=== PATIENT | male | born 1945 | race Caucasian/White ===

== ENCOUNTER 2018-07-15 13:29 | Inpatient (IN) ==
--- NOTE | 2018-07-15 13:46 | Emergency Department Note ---
Disposition Clinical Impression: Delirium due to general medical condition Dementia Qualifiers: Dementia type: unspecified type Dementia behavioral disturbance: with be havioral disturbance Qualified Code(s): F03.91 - Unspecified dementia with behavioral disturbance Altered mental status Qualifiers: Altered mental status type: delirium Qualified Code(s): R41.0 - Disorientation, unspecified Pneumonia Qualifiers: Pneumonia type: due to unspecified organism Laterality: left Lung location: unspecified part of lung Qualified Code(s): J18.9 - Pneumonia, unspecified organism Disposition: Admitted As Inpatient Condition: Fair Time of Disposition: 17:29 Altered Mental Status HPI - General Chief Complaint: ED Altered Mental Status Stated Complaint: AMS Time Seen by Provider: 07/15/18 13:39 Source: patient Mode of arrival: ambulatory Limitations: altered mental status, physical limitation Vital Signs Reviewed: Yes - History of Present Illness HPI Narrative: 73-year-old male past medical history of dementia with to 3 day history of worsening mental status. Patient's is at bedside stating that patient has become more agitated and resistant to home health care. Patient is not communicating appropriately or making sense with his words. Patient has been putting his hand to his head in a way that is interpreted by the as headache. Patient is also had a worsening cough during this time. Patient's states that he has been urinating a great deal although notes that there has been no blood in the urine or stool. reports that patient takes no significant medications at this time he is not on blood thinners, there is been no recent trauma. Patient is unable to participate in significant history of present illness or review of systems questioning at this time. MD complaint: altered mental status Onset (ago): day(s) Associated symptoms: Reports: cough, other (Increase in urination) - Related Data Home Medications Medication Instructions Recorded Confirmed Aspirin [Lo-Dose Aspirin EC] 81 mg PO DAILY 07/15/18 07/15/18 Atenolol [Tenormin] 25 mg PO DAILY 07/15/18 07/15/18 Citalopram [CeleXA] 20 mg PO DAILY 07/15/18 07/15/18 Multivitamin,Therapeutic 1 each PO DAILY 07/15/18 07/15/18 [Thera-Tabs] Naproxen [Naprosyn] 500 mg PO DAILY 07/15/18 07/15/18 Omeprazole [PriLOSEC] 20 mg PO DAILY 07/15/18 07/15/18 Oxybutynin Chloride [Ditropan Xl] 10 mg PO DAILY 07/15/18 07/15/18 risperiDONE [Risperidone] 1 mg PO HS 07/15/18 07/15/18 Allergies Allergy/AdvReac Type Severity Reaction Status Date / Time Penicillins Allergy Difficulty Verified 07/15/18 19:49 Breathing Review of Systems: As Per HPI Limitations: ROS unobtainable due to patients medical condition Past Medical History - Past Medical History Attestation: Yes The following information was validated with the patient. Source: patient, obtained from family Medical history: Reports: dementia, GERD, hypertension Psychiatric history: Reports: depression - Social History Smoking Status: Former smoker Smokeless Tobacco Status: No Alcohol use: Reports: none Drug use: Reports: none Physical Exam Constitutional: No acute distress, patient speech is tangential to conversation, context is inappropriate. Unable to communicate significantly for review systems or history of present illness. Neuro: no overt focal neurological deficits Head: Atraumatic, normocephalic Eyes: Pupils equal, round and reactive to light, no scleral icterus, no conjunctival injection Neck: Trachea midline without deviation. Anterior neck is supple without swelling. *Chest: Symmetric chest wall rise *Heart: Cardiac rhythm and rate are regular with S1 and S2 , no S3 or S4 appreciated, no murmurs, gallops, rubs, or clicks. *Lungs: Lungs are clear to auscultation bilaterally, without accessory muscle use or prolonged expiratory phase. No wheezes, rhonchi or stridor appreciated. Abdomen: Abdomen is flat, soft to palpation, normal bowel sounds. No abdominal bruit auscultated. Non-distended, non-rigid, no organomegaly, no ascites appreciated. No pulsatile mass, no tenderness or guarding to palpation in all four quadrants, no rebound Extremities: Normal capillary refill without evidence of pedal edema, joint swelling or erythema. Pulses/motor/sensory intact in all 4 extremities. Integumentary: warm, dry, intact, normal color. No rash, cyanosis, diaphoresis, erythema, or pallor - General Limitations: altered mental status General appearance: alert, in no apparent distress Course Course Narrative: Main concern is for pneumonia versus urinary tract infection causing delirium in the setting of dementia CBC, BMP, hepatic panel, lipase, ammonia EKG/old EKG, chest x-ray, CT scan of the head We will reassess frequently. Vital Signs Temperature 98.3 F 07/15/18 13:35 Pulse Rate 87 07/15/18 13:35 Respiratory Rate 18 07/15/18 13:35 Blood Pressure 120/86 07/15/18 13:35 O2 Sat by Pulse Oximetry 97 07/15/18 13:35 Temperature 97.6 F 07/15/18 16:16 Pulse Rate 83 07/15/18 16:16 Respiratory Rate 12 07/15/18 16:16 Blood Pressure 129/94 07/15/18 16:16 O2 Sat by Pulse Oximetry 100 07/15/18 16:16 Oxygen Delivery Oxygen Delivery Room Air Altered Mental Status - MDM Narrative Medical decision making narrative: Patient imaging results consistent with concern for pneumonia Patient will be given IV Levaquin for management of his symptoms here in ED. Laboratory and EKG results unremarkable for acute pathology Patient admitted to hospital medicine service for further evaluation and management of altered mental status in the setting of pneumonia. The patient's verbalizes understanding and agreement with this plan. - Lab Data Lab results reviewed: Yes I reviewed the patient's lab results. Result diagrams: 07/16/18 01:11 07/16/18 01:11 Lab Results 07/15/18 07/15/18 07/15/18 Range/Units 14:35 14:35 14:35 WBC 6.8 (4.3-11.1) K/mcL RBC 4.21 (4.19-5.50) M/mcL Hgb 14.1 (12.9-16.9) g/dL Hct 42.0 (37.5-50.1) % MCV 99.8 (83.0-100.0) fL MCH 33.5 H (28.0-33.3) pg MCHC 33.6 (31.6-35.5) g/dL RDW 11.9 (11.5-14.5) % Plt Count 177 (140-400) K/mcL MPV 10.7 (9.4-12.4) fL Immature Gran % 0.1 (0-4) % Seg Neutrophils % 73.9 % Lymphocytes % 14.7 % Monocytes % 8.7 % Eosinophils % 2.2 % Basophils % 0.4 % Neutrophils # 5.0 (1.6-8.9) K/mcL Lymphocytes # 1.0 (0.6-4.6) K/mcL Monocytes # 0.6 (0.0-1.3) K/mcL Eosinophils # 0.2 (0.0-0.6) K/mcL Basophils # 0.0 (0.0-0.2) K/mcL Sodium 142 (136-145) mEq/L Potassium 4.2 (3.5-5.1) mEq/L Chloride 109 H (98-107) mEq/L Carbon Dioxide 24 (23-29) mEq/L BUN 30 H (8-23) mg/dL Creatinine 1.29 (0.70-1.30) mg/dL Est GFR ( Amer) > 60 (> 60) Est GFR (Non-Af Amer) 54 L (> 60) BUN/Creatinine Ratio 23 (6-26) Glucose 93 (70-105) mg/dL Calculated Osmolality 300 (280-300) Lactic Acid (0.5-2.2) mmol/L Calcium 9.6 (8.6-10.3) mg/dL Total Bilirubin 0.7 (0.3-1.0) mg/dL Direct Bilirubin 0.1 (0.0-0.2) mg/dL Indirect Bilirubin 0.6 (0.0-1.2) mg/dL AST 23 (13-39) Units/L ALT 19 (7-52) Units/L Alkaline Phosphatase 72 (34-104) Units/L Ammonia 32 (16-53) mcmol/L Serum Total Protein 6.4 (6.4-8.9) g/dL Albumin 4.2 (3.5-5.7) g/dL Globulin 2.2 L (2.4-3.5) g/dL Albumin/Globulin Ratio 1.9 (1.1-2.2) Lipase 34 (11-82) Units/L Urine Color (Yellow) Urine Clarity (Clear) Urine pH (5.0-8.0) pH Units Ur Specific [place] (1.010-1.025) Urine Protein (Neg-Trace) mg/dL Urine Glucose (UA) (Normal) mg/dL Urine Ketones (Negative) mg/dL Urine Blood (Negative) Urine Nitrite (Negative) Urine Bilirubin (Negative) Urine Urobilinogen (Normal) mg/dL Ur Leukocyte Esterase (Negative) Ur Culture Indicated? (NO) 07/15/18 07/15/18 Range/Units 14:35 16:10 WBC (4.3-11.1) K/mcL RBC (4.19-5.50) M/mcL Hgb (12.9-16.9) g/dL Hct (37.5-50.1) % MCV (83.0-100.0) fL MCH (28.0-33.3) pg MCHC (31.6-35.5) g/dL RDW (11.5-14.5) % Plt Count (140-400) K/mcL MPV (9.4-12.4) fL Immature Gran % (0-4) % Seg Neutrophils % % Lymphocytes % % Monocytes % % Eosinophils % % Basophils % % Neutrophils # (1.6-8.9) K/mcL Lymphocytes # (0.6-4.6) K/mcL Monocytes # (0.0-1.3) K/mcL Eosinophils # (0.0-0.6) K/mcL Basophils # (0.0-0.2) K/mcL Sodium (136-145) mEq/L Potassium (3.5-5.1) mEq/L Chloride (98-107) mEq/L Carbon Dioxide (23-29) mEq/L BUN (8-23) mg/dL Creatinine (0.70-1.30) mg/dL Est GFR ( Amer) (> 60) Est GFR (Non-Af Amer) (> 60) BUN/Creatinine Ratio (6-26) Glucose (70-105) mg/dL Calculated Osmolality (280-300) Lactic Acid 0.8 (0.5-2.2) mmol/L Calcium (8.6-10.3) mg/dL Total Bilirubin (0.3-1.0) mg/dL Direct Bilirubin (0.0-0.2) mg/dL Indirect Bilirubin (0.0-1.2) mg/dL AST (13-39) Units/L ALT (7-52) Units/L Alkaline Phosphatase (34-104) Units/L Ammonia (16-53) mcmol/L Serum Total Protein (6.4-8.9) g/dL Albumin (3.5-5.7) g/dL Globulin (2.4-3.5) g/dL Albumin/Globulin Ratio (1.1-2.2) Lipase (11-82) Units/L Urine Color Yellow (Yellow) Urine Clarity Clear (Clear) Urine pH 5.5 (5.0-8.0) pH Units Ur Specific [place] 1.022 (1.010-1.025) Urine Protein Negative (Neg-Trace) mg/dL Urine Glucose (UA) Normal (Normal) mg/dL Urine Ketones Trace H (Negative) mg/dL Urine Blood Negative (Negative) Urine Nitrite Negative (Negative) Urine Bilirubin Negative (Negative) Urine Urobilinogen Normal (Normal) mg/dL Ur Leukocyte Esterase Negative (Negative) Ur Culture Indicated? NO (NO) - Radiology Data Radiology results reviewed: Yes I reviewed the patient's radiology results. Chest X-Ray 07/15/18 13:44 IMPRESSION: 1. Left basilar opacities likely reflecting atelectasis and effusion. Superimposed infiltrate would be difficult to exclude in the appropriate clinical setting. D/ / Christoph Maxwlel MD / Christoph Maxwell MD Interpreting Provider: Christoph Maxwell MD Head CT 07/15/18 13:44 IMPRESSION: No acute intracranial abnormality. Moderate generalized atrophy. Moderate low-attenuation in the periventricular white matter, consistent with small vessel disease. There is disproportionate involvement of the left parietal periventricular white matter, similar to baseline study. D/ / Enio Oneill MD / Enio Oneill MD Interpreting Provider: Enio Oneill MD - EKG Data EKG attestation: Yes I reviewed and interpreted this EKG. EKG results narrative: Patient's EKG shows sinus rhythm with borderline left axis deviation at a rate of 80 bpm, AR interval of 164 ms, QRS duration 90 ms, QT/QTc intervals 388/448 ms respectively. There are no significant ST segment elevations, depressions, pathologic Q waves there is an abnormal T-wave inversion noted in lead 3 but is isolated to this lesion consistent with prior EKG. This EKG performed today is generally consistent with prior EKG performed on 04/30/2016. TPA Checklist - LKW: 3-4.5 hrs Add. Warnings/Precautions Patient/family understanding: The patient/family members have been counseled and understood the risk, benefit, and alternatives of treatment.
--- NOTE | 2018-07-15 14:40 | Emergency Department Note ---
Disposition Clinical Impression: Delirium due to general medical condition Dementia Qualifiers: Dementia type: unspecified type Dementia behavioral disturbance: with be havioral disturbance Qualified Code(s): F03.91 - Unspecified dementia with behavioral disturbance Altered mental status Qualifiers: Altered mental status type: delirium Qualified Code(s): R41.0 - Disorientation, unspecified Pneumonia Qualifiers: Pneumonia type: due to unspecified organism Laterality: left Lung location: unspecified part of lung Qualified Code(s): J18.9 - Pneumonia, unspecified organism Disposition: Admitted As Inpatient Condition: Fair Referrals: Darin Alicea Jr, MD [Primary Care Provider] - Forms: ED Satisfaction Letter Time of Disposition: 16:40 General Adult HPI - General Chief complaint: ED Altered Mental Status Stated complaint: AMS Time Seen by Provider: 07/15/18 13:39 Source: patient Mode of arrival: ambulatory Limitations: altered mental status, physical limitation Nursing Notes Reviewed: Yes Vital Signs Reviewed: Yes - History of Present Illness Pain Scale: 0 - Related Data Home Medications Medication Instructions Recorded Confirmed Citalopram [CeleXA] 20 mg PO DAILY 07/15/18 07/15/18 Mirabegron [Myrbetriq] 50 mg PO DAILY 07/15/18 07/15/18 Oxybutynin Chloride [Ditropan Xl] 10 mg PO DAILY 07/15/18 07/15/18 risperiDONE [Risperidone] 1 mg PO HS 07/15/18 07/15/18 Allergies Allergy/AdvReac Type Severity Reaction Status Date / Time Penicillins Allergy Difficulty Verified 04/20/16 15:20 Breathing Past Medical History - Past Medical History Medical history: Reports: dementia, GERD, hypertension Psychiatric history: Reports: depression - Social History Smoking Status: Former smoker Smokeless Tobacco Status: No Alcohol use: Reports: none Drug use: Reports: none Physical Exam - General Limitations: altered mental status, physical limitation General appearance: alert, in no apparent distress Course Vital Signs Temperature 98.3 F 07/15/18 13:35 Pulse Rate 87 07/15/18 13:35 Respiratory Rate 18 07/15/18 13:35 Blood Pressure 120/86 07/15/18 13:35 O2 Sat by Pulse Oximetry 97 07/15/18 13:35 Temperature 97.6 F 07/15/18 16:16 Pulse Rate 83 07/15/18 16:16 Respiratory Rate 12 07/15/18 16:16 Blood Pressure 129/94 07/15/18 16:16 O2 Sat by Pulse Oximetry 100 07/15/18 16:16 Oxygen Delivery Oxygen Delivery Room Air Medical Decision Making - Lab Data Result diagrams: 07/15/18 14:35 07/15/18 14:35 Lab Results 07/15/18 07/15/18 07/15/18 Range/Units 14:35 14:35 14:35 WBC 6.8 (4.3-11.1) K/mcL RBC 4.21 (4.19-5.50) M/mcL Hgb 14.1 (12.9-16.9) g/dL Hct 42.0 (37.5-50.1) % MCV 99.8 (83.0-100.0) fL MCH 33.5 H (28.0-33.3) pg MCHC 33.6 (31.6-35.5) g/dL RDW 11.9 (11.5-14.5) % Plt Count 177 (140-400) K/mcL MPV 10.7 (9.4-12.4) fL Immature Gran % 0.1 (0-4) % Seg Neutrophils % 73.9 % Lymphocytes % 14.7 % Monocytes % 8.7 % Eosinophils % 2.2 % Basophils % 0.4 % Neutrophils # 5.0 (1.6-8.9) K/mcL Lymphocytes # 1.0 (0.6-4.6) K/mcL Monocytes # 0.6 (0.0-1.3) K/mcL Eosinophils # 0.2 (0.0-0.6) K/mcL Basophils # 0.0 (0.0-0.2) K/mcL Sodium 142 (136-145) mEq/L Potassium 4.2 (3.5-5.1) mEq/L Chloride 109 H (98-107) mEq/L Carbon Dioxide 24 (23-29) mEq/L BUN 30 H (8-23) mg/dL Creatinine 1.29 (0.70-1.30) mg/dL Est GFR ( Amer) > 60 (> 60) Est GFR (Non-Af Amer) 54 L (> 60) BUN/Creatinine Ratio 23 (6-26) Glucose 93 (70-105) mg/dL Calculated Osmolality 300 (280-300) Lactic Acid (0.5-2.2) mmol/L Calcium 9.6 (8.6-10.3) mg/dL Total Bilirubin 0.7 (0.3-1.0) mg/dL Direct Bilirubin 0.1 (0.0-0.2) mg/dL Indirect Bilirubin 0.6 (0.0-1.2) mg/dL AST 23 (13-39) Units/L ALT 19 (7-52) Units/L Alkaline Phosphatase 72 (34-104) Units/L Ammonia 32 (16-53) mcmol/L Serum Total Protein 6.4 (6.4-8.9) g/dL Albumin 4.2 (3.5-5.7) g/dL Globulin 2.2 L (2.4-3.5) g/dL Albumin/Globulin Ratio 1.9 (1.1-2.2) Lipase 34 (11-82) Units/L Urine Color (Yellow) Urine Clarity (Clear) Urine pH (5.0-8.0) pH Units Ur Specific [place] (1.010-1.025) Urine Protein (Neg-Trace) mg/dL Urine Glucose (UA) (Normal) mg/dL Urine Ketones (Negative) mg/dL Urine Blood (Negative) Urine Nitrite (Negative) Urine Bilirubin (Negative) Urine Urobilinogen (Normal) mg/dL Ur Leukocyte Esterase (Negative) Ur Culture Indicated? (NO) 07/15/18 07/15/18 Range/Units 14:35 16:10 WBC (4.3-11.1) K/mcL RBC (4.19-5.50) M/mcL Hgb (12.9-16.9) g/dL Hct (37.5-50.1) % MCV (83.0-100.0) fL MCH (28.0-33.3) pg MCHC (31.6-35.5) g/dL RDW (11.5-14.5) % Plt Count (140-400) K/mcL MPV (9.4-12.4) fL Immature Gran % (0-4) % Seg Neutrophils % % Lymphocytes % % Monocytes % % Eosinophils % % Basophils % % Neutrophils # (1.6-8.9) K/mcL Lymphocytes # (0.6-4.6) K/mcL Monocytes # (0.0-1.3) K/mcL Eosinophils # (0.0-0.6) K/mcL Basophils # (0.0-0.2) K/mcL Sodium (136-145) mEq/L Potassium (3.5-5.1) mEq/L Chloride (98-107) mEq/L Carbon Dioxide (23-29) mEq/L BUN (8-23) mg/dL Creatinine (0.70-1.30) mg/dL Est GFR ( Amer) (> 60) Est GFR (Non-Af Amer) (> 60) BUN/Creatinine Ratio (6-26) Glucose (70-105) mg/dL Calculated Osmolality (280-300) Lactic Acid 0.8 (0.5-2.2) mmol/L Calcium (8.6-10.3) mg/dL Total Bilirubin (0.3-1.0) mg/dL Direct Bilirubin (0.0-0.2) mg/dL Indirect Bilirubin (0.0-1.2) mg/dL AST (13-39) Units/L ALT (7-52) Units/L Alkaline Phosphatase (34-104) Units/L Ammonia (16-53) mcmol/L Serum Total Protein (6.4-8.9) g/dL Albumin (3.5-5.7) g/dL Globulin (2.4-3.5) g/dL Albumin/Globulin Ratio (1.1-2.2) Lipase (11-82) Units/L Urine Color Yellow (Yellow) Urine Clarity Clear (Clear) Urine pH 5.5 (5.0-8.0) pH Units Ur Specific [place] 1.022 (1.010-1.025) Urine Protein Negative (Neg-Trace) mg/dL Urine Glucose (UA) Normal (Normal) mg/dL Urine Ketones Trace H (Negative) mg/dL Urine Blood Negative (Negative) Urine Nitrite Negative (Negative) Urine Bilirubin Negative (Negative) Urine Urobilinogen Normal (Normal) mg/dL Ur Leukocyte Esterase Negative (Negative) Ur Culture Indicated? NO (NO) Attestation Statement - Attestation Attestation: I examined this patient and my medical decision-making was reviewed with the Resident Physician. I agree with the documented findings, disposition and treatment plan as described except to the extent set forth below. Patient brought to the ED by his significant other. Patient has dementia and has had a functional decline. He wonders around the house all hours of the day and night. Opens and closes [place]. Trying to go into the garage. Refusing to wear close. Refusing to change his depends. is having a hard time taking care of him. On exam he is laying in bed in no distress with no complaints. Pupils reactive. Moving all extremities. Abdomen soft lungs clear. Plan. Altered mental status workup. Patient is unsafe for discharge home. Chest x-ray reveals a possible infiltrate. He has no fever. Normal white count. We will go ahead and give him antibiotic here. Chest X-Ray 07/15/18 13:44 IMPRESSION: 1. Left basilar opacities likely reflecting atelectasis and effusion. Superimposed infiltrate would be difficult to exclude in the appropriate clinical setting. D/ / Christoph Maxwell MD / Christoph Maxwell MD Interpreting Provider: Christoph Maxwell MD Head CT 07/15/18 13:44 IMPRESSION: No acute intracranial abnormality. Moderate generalized atrophy. Moderate low-attenuation in the periventricular white matter, consistent with small vessel disease. There is disproportionate involvement of the left parietal periventricular white matter, similar to baseline study. D/ / Enio Oneill MD / Enio Oneill MD Interpreting Provider: Enio Oneill MD
[2018-07-15 15:19] LABS: Alanine Aminotransferase 19 Units/L (7-52); Albumin 4.2 g/dL (3.5-5.7); Albumin/Globulin Ratio 1.9 (1.1-2.2); Alkaline Phosphatase 72 Units/L (34-104); Aspartate Amino Transferase 23 Units/L (13-39); BUN/Creatinine Ratio 23 (6-26); Bilirubin,Direct 0.1 mg/dL (0.0-0.2); Bilirubin,Indirect 0.6 mg/dL (0.0-1.2); Bilirubin,Total 0.7 mg/dL (0.3-1.0); Blood Urea Nitrogen 30 mg/dL (8-23); Calcium 9.6 mg/dL (8.6-10.3); Carbon Dioxide 24 mEq/L (23-29); Chloride 109 mEq/L (98-107); Globulin 2.2 g/dL (2.4-3.5); Glucose 93 mg/dL (70-105); Lipase 34 Units/L (11-82); Osmolality,Calculated 300 (280-300); Potassium 4.2 mEq/L (3.5-5.1); Sodium 142 mEq/L (136-145); Total Protein 6.4 g/dL (6.4-8.9); eGFR For Non-African Americans 54 (> 60)
[2018-07-15 15:27] LABS: Basophils % 0.4 %; Eosinophils # 0.2 K/mcL (0.0-0.6); Eosinophils % 2.2 %; Hemoglobin 14.1 g/dL (12.9-16.9); Immature Granulocytes % 0.1 % (0-4); Lymphocytes % 14.7 %; Mean Corpuscular HGB Conc 33.6 g/dL (31.6-35.5); Mean Corpuscular Hemoglobin 33.5 pg (28.0-33.3); Mean Corpuscular Volume 99.8 fL (83.0-100.0); Mean Platelet Volume 10.7 fL (9.4-12.4); Monocytes # 0.6 K/mcL (0.0-1.3); Monocytes % 8.7 %; Platelet Count 177 K/mcL (140-400); Red Blood Count 4.21 M/mcL (4.19-5.50); Red Cell Distribution Width 11.9 % (11.5-14.5); Segmented Neutrophils % 73.9 %
[2018-07-15 16:24] LABS: Bilirubin,Urine Negative (Negative); Blood,Urine Negative (Negative); Clarity,Urine Clear (Clear); Color,Urine Yellow (Yellow); Glucose,Urine (UA) Normal (Normal); Ketones,Urine Trace mg/dL (Negative); Leukocyte Esterase,Urine Negative (Negative); Nitrite,Urine Negative (Negative); PH,Urine 5.5 pH Units (5.0-8.0); Protein,Urine Negative (Neg-Trace); Specific Gravity,Urine 1.022 (1.010-1.025); Urobilinogen,Urine Normal (Normal)
[2018-07-15] MEDS ORDERED: cefTRIAXone 1,000 MG in Water for inj. (sterile) 20 ML 10 ML IVP ONE (16:38)
[2018-07-15] MEDS ORDERED: Azithromycin 500 MG in D5% in Water 250 ML IVPB ONE (16:39)
[2018-07-15] MEDS ORDERED: Levofloxacin 750 MG/150 ML 750 MG/150 ML BAG IVPB ONE (16:47)
[2018-07-15] MEDS ORDERED: Naloxone 0.4 MG/ML INJ IVP PRN (17:40)
--- NOTE | 2018-07-15 17:47 | Internal Med History&Physical ---
<Raoul Briggs - Last Filed: 07/15/18 18:47> Date of Encounter: 07/15/18 Time of Encounter: 17:45 Internal Medicine - H&P: HPI Chief complaint: Ultimate mental status Admitted From: Home History of present illness: Mr. Jaramillo is a 73-year-old male with a PMH of HTN, GERD, dementia who was brought to [facility] ED on 07/15/18 by his for a 3 day history of worsening mental status. reports the patient has become more agitated and resistant to home health care. He is reportedly not been communicating appropriately or making sense of his words. She reported that he has been wandering around the house opening and closing doors during both day and night hours, as well as refusing to wear clothing. He is also had a worsening cough. She also reports that his urine output has decreased. Review of systems unobtainable from patient. On arrival to the emergency department, vital signs demonstrated the following: Temperature 98.3, pulse 87, respiratory rate 18, blood pressure 120/86, O2 saturation 97. Laboratory analysis was unremarkable. Urinalysis showed small amount of urine ketones. CXR demonstrated Left basilar opacities; likely atelectasis/effusion; possible superimposed infiltrate. CT of the head demonstrated No acute process; chronic changes associated with small vessel disease; unchanged from previous. EKG demonstrated sinus rhythm, borderline left axis deviation, rate of 80 bpm. RI interval of 164, QRS 90, QTc interval 448. No significant ST segment elevations. No depressions, pathologic Q waves. Abnormal T-wave inversion in lead 3; isolated and consistent with prior EKG on 04/30. In the emergency department, patient was given a one-time dose of Rocephin and Zithromax. He was then started on Levaquin. Blood cultures were ordered 2 and are currently pending. Patient was seen and examined at bedside in the emergency department; he is accompanied by his . According to his , zhen dixon's mental status has declined over the last 2 weeks. She states that at baseline, he is unable to have a meaningful conversation, but does have a limited capacity to speak and understandable sentences. Today, he speaks in disconnected sentences that are unrelated to one another. He does respond to some questions and is able to follow some simple commands, such as sticking his tongue out. When asked to lean forward for example, he states "yes, I can lean forward," but does not do so. He also is not able to tell me his full name, where he is, or the year. His states that his dementia has been progressively worsening over the past 2 years. 2 years ago, he lost the ability to speak normally. She states that he still had a limited ability to dress and feed himself. Over the last 2 weeks however, he has not been able to do this. She states that he walks around the house opening and closing doors at random, and stays up all hours throughout the night. She has never received a formal diagnosis for his condition. Patient does not appear to be in any acute distress at this time. He has no cough or tachypnea. Past Med Surg Social Fam HX - Past Medical History Medical history: dementia, GERD, hypertension Psychiatric history: depression - Past Surgical History Additional surgical history: shoulder surgery - Social History Smoking Status: Former smoker Smokeless Tobacco Status: No Alcohol use: none Drug use: none Internal Medicine - H&P: Meds Aspirin [Lo-Dose Aspirin EC] 81 mg PO DAILY 07/15/18 [History] Atenolol [Tenormin] 25 mg PO DAILY 07/15/18 [History] Citalopram [CeleXA] 20 mg PO DAILY 07/15/18 [History] Multivitamin,Therapeutic [Thera-Tabs] 1 each PO DAILY 07/15/18 [History] Naproxen [Naprosyn] 500 mg PO DAILY 07/15/18 [History] Omeprazole [PriLOSEC] 20 mg PO DAILY 07/15/18 [History] Oxybutynin Chloride [Ditropan Xl] 10 mg PO DAILY 07/15/18 [History] risperiDONE [Risperidone] 1 mg PO HS 07/15/18 [History] Allergy/AdvReac Type Severity Reaction Status Date / Time Penicillins Allergy Difficulty Verified 07/15/18 19:49 Breathing ROS unobtainable: due to mental status All Systems PM: A 10-system review of systems was performed and is negative for pertinent findings except as documented above in the HPI. - Constitutional Vitals: Temp Pulse Resp BP Pulse Ox 97.6 F 83 12 129/94 100 07/15/18 16:16 07/15/18 16:16 07/15/18 16:16 07/15/18 16:16 07/15/18 16:16 Exam: General: Alert and oriented 0; difficult to understand, no acute distress HEENT: Head is atraumatic, normocephalic; mucous membranes appear dry Neck: Supple, trachea midline Respiratory: Exam limited; patient will not lean forward or take deep inspiration; no wheezing or rhonchi appreciated on limited exam Cardiovascular: RRR, +S1/+S2; no murmurs, rubs, gallops Abdomen: Soft, nontender Extremities: warm, radial pulses palpable and symmetrical Neurological: Unable to assess; follows some simple commands, such as sticking tongue out, but ignores others; speech appears to be intact, but patient speaks in disconnected sentences seemingly unrelated to one another Skin: Dry, intact Internal Med - H&P Results - Labs CBC & Chem 7: 07/15/18 14:35 07/15/18 14:35 Labs: Short CBC 07/15/18 Range/Units 14:35 WBC 6.8 (4.3-11.1) K/mcL Hgb 14.1 (12.9-16.9) g/dL Hct 42.0 (37.5-50.1) % Plt Count 177 (140-400) K/mcL Neutrophils # 5.0 (1.6-8.9) K/mcL BMP 07/15/18 14:35 Sodium 142 Potassium 4.2 Chloride 109 H Carbon Dioxide 24 BUN 30 H Creatinine 1.29 Glucose 93 Calcium 9.6 Liver Function 07/15/18 Range/Units 14:35 Total Bilirubin 0.7 (0.3-1.0) mg/dL Direct Bilirubin 0.1 (0.0-0.2) mg/dL AST 23 (13-39) Units/L ALT 19 (7-52) Units/L Alkaline Phosphatase 72 (34-104) Units/L Albumin 4.2 (3.5-5.7) g/dL Urine 07/15/18 Range/Units 16:10 Urine Color Yellow (Yellow) Urine Clarity Clear (Clear) Urine pH 5.5 (5.0-8.0) pH Units Ur Specific [place] 1.022 (1.010-1.025) Urine Protein Negative (Neg-Trace) mg/dL Urine Glucose (UA) Normal (Normal) mg/dL - Impressions ITS Impressions Chest X-Ray 07/15/18 13:44 IMPRESSION: 1. Left basilar opacities likely reflecting atelectasis and effusion. Superimposed infiltrate would be difficult to exclude in the appropriate clinical setting. D/ / Christoph Maxwell MD / Christoph Maxwell MD Interpreting Provider: Christoph Maxwell MD Head CT 07/15/18 13:44 IMPRESSION: No acute intracranial abnormality. Moderate generalized atrophy. Moderate low-attenuation in the periventricular white matter, consistent with small vessel disease. There is disproportionate involvement of the left parietal periventricular white matter, similar to baseline study. D/ / Enio Oneill MD / Enio Oneill MD Interpreting Provider: Enio Oneill MD - Assessment and Plan (1) Altered mental status Current Visit: Yes Status: Acute Assessment and plan: - Unknown etiology at this time; possibly secondary to progressive dementia versus encephalopathy - Patient has a known history of dementia - Per patient's , patient has had worsening dementia for the past 2 years, with a progressive decline in his daily functioning - She states that at baseline, patient is not able to hold a full conversation, but is verbal and able to communicate basic things - She states that over the past 2 weeks, he has not been able to feed himself properly, and has been walking around the house opening and closing doors - He is also not able to dress himself - She denies any new onset weakness, gait disturbance, or falls - On exam, patient is able to answer basic questions and follows some commands, such as sticking his tongue out, but is unable to hold a conversation properly, and appears to speak in random, unrelated sentences; he also speaks softly and is difficult to understand. He is however, able to maintain eye contact - No focal deficits appreciated on exam; low suspicion for CVA at this time Plan: - Will order TSH, urine drug screen, vitamin B12, folate - Patient's states that she is not feel that he is safe at home; he will likely need placement Qualifiers: Altered mental status type: delirium Qualified Code(s): R41.0 - Disorientation, unspecified (2) Abnormal chest x-ray Current Visit: Yes Status: Acute Assessment and plan: - Patient presented with altered mental status and intermittent cough per patients - Patient was afebrile; vital signs within normal limits on arrival; No elevation in white count - CXR demonstrated the presence of left basilar opacity, likely atelectasis or effusion with possible superimposed consolidation - On exam, patient does not appear to be in any respiratory distress; no cough or tachypnea Plan: - Blood cultures are pending 2 - Will hold off on antibiotic therapy for the time being; patient has documented history of penicillin allergy with difficulty breathing; is also on QT prolonging medications; QTc on arrival was 448 - If patient develops respiratory distress, fever, or elevated white count, will initiate antibiotic therapy - We will obtain urine antigens for strep and legionella (3) GERD (gastroesophageal reflux disease) Current Visit: Yes Status: Acute Assessment and plan: - Continue home omeprazole Qualifiers: Qualified Code(s): K21.9 - Gastro-esophageal reflux disease without esophagitis (4) Hypertension Current Visit: Yes Status: Acute Assessment and plan: - Continue home atenolol Qualifiers: Qualified Code(s): I10 - Essential (primary) hypertension - Time Spent With Patient Total time spent is greater than 50% in coordination of care (as documented) at patient's floor/unit and/or counseling patient: <Sabina Castro - Last Filed: 07/15/18 21:36> Date of Encounter: 07/15/18 Internal Medicine - H&P: HPI History of present illness: Mr. Jaramillo is a 73 year old male Past Med Surg Social Fam HX - Family History Brother Hx Family Neurologic Disorders: Yes (dementia) All Systems PM: A 10-system review of systems was performed and is negative for pertinent findings except as documented above in the HPI. - Constitutional Vitals: Temp Pulse Resp BP Pulse Ox 97.4 F L 70 18 130/87 98 07/15/18 19:19 07/15/18 19:19 07/15/18 19:19 07/15/18 19:19 07/15/18 19:19 Internal Med - H&P Results - Labs CBC & Chem 7: 07/15/18 14:35 07/15/18 14:35 Labs: Short CBC 07/15/18 Range/Units 14:35 WBC 6.8 (4.3-11.1) K/mcL Hgb 14.1 (12.9-16.9) g/dL Hct 42.0 (37.5-50.1) % Plt Count 177 (140-400) K/mcL Neutrophils # 5.0 (1.6-8.9) K/mcL BMP 07/15/18 14:35 Sodium 142 Potassium 4.2 Chloride 109 H Carbon Dioxide 24 BUN 30 H Creatinine 1.29 Glucose 93 Calcium 9.6 Liver Function 07/15/18 Range/Units 14:35 Total Bilirubin 0.7 (0.3-1.0) mg/dL Direct Bilirubin 0.1 (0.0-0.2) mg/dL AST 23 (13-39) Units/L ALT 19 (7-52) Units/L Alkaline Phosphatase 72 (34-104) Units/L Albumin 4.2 (3.5-5.7) g/dL Urine 07/15/18 Range/Units 16:10 Urine Color Yellow (Yellow) Urine Clarity Clear (Clear) Urine pH 5.5 (5.0-8.0) pH Units Ur Specific [place] 1.022 (1.010-1.025) Urine Protein Negative (Neg-Trace) mg/dL Urine Glucose (UA) Normal (Normal) mg/dL - Impressions ITS Impressions Chest X-Ray 07/15/18 13:44 IMPRESSION: 1. Left basilar opacities likely reflecting atelectasis and effusion. Superimposed infiltrate would be difficult to exclude in the appropriate clinical setting. D/ / Christoph Maxwell MD / Christoph Maxwell MD Interpreting Provider: Christoph Maxwell MD Head CT 07/15/18 13:44 IMPRESSION: No acute intracranial abnormality. Moderate generalized atrophy. Moderate low-attenuation in the periventricular white matter, consistent with small vessel disease. There is disproportionate involvement of the left parietal periventricular white matter, similar to baseline study. D/ / Enio Oneill MD / Enio Oneill MD Interpreting Provider: Enio Oneill MD - Time Spent With Patient Total time spent is greater than 50% in coordination of care (as documented) at patient's floor/unit and/or counseling patient: - Attending Attestation I examined this patient and my medical decision-making was reviewed with the Resident Physician. I agree with the documented findings, disposition and treatment plan as described except to the extent set forth below.
[2018-07-15] MEDS: 0.9 % Sodium Chloride 1,000 ML IVC SCH (21:37)
[2018-07-15] MEDS: risperiDONE 1 MG TABLET PO SCH (21:38)
[2018-07-15 22:54] LABS: Amphetamine Screen,Urine Negative ng/mL (Cutoff=1000); Barbiturate Screen,Urine Negative ng/mL (Cutoff=200); Benzodiazepines Screen,Urine Negative ng/mL (Cutoff=200); Cannabinoid Screen,Urine Negative ng/mL (Cutoff = 50); Cocaine Screen,Urine Negative ng/mL (Cutoff= 300); Opiate Screen,Urine Negative ng/mL (Cutoff=300); Phencyclidine Screen,Urine Negative ng/mL (Cutoff=25)
[2018-07-16 01:39] LABS: Basophils % 0.4 %; Eosinophils # 0.2 K/mcL (0.0-0.6); Eosinophils % 3.2 %; Hematocrit 41.1 % (37.5-50.1); Hemoglobin 13.7 g/dL (12.9-16.9); Immature Granulocytes % 0.3 % (0-4); Lymphocytes # 0.9 K/mcL (0.6-4.6); Lymphocytes % 12.6 %; Mean Corpuscular HGB Conc 33.3 g/dL (31.6-35.5); Mean Corpuscular Hemoglobin 33.7 pg (28.0-33.3); Mean Platelet Volume 10.7 fL (9.4-12.4); Monocytes # 0.8 K/mcL (0.0-1.3); Monocytes % 10.1 %; Neutrophils # 5.4 K/mcL (1.6-8.9); Platelet Count 161 K/mcL (140-400); Red Blood Count 4.07 M/mcL (4.19-5.50); Red Cell Distribution Width 11.8 % (11.5-14.5); Segmented Neutrophils % 73.4 %
[2018-07-16 02:02] LABS: BUN/Creatinine Ratio 24 (6-26); Blood Urea Nitrogen 29 mg/dL (8-23); Calcium 9.1 mg/dL (8.6-10.3); Carbon Dioxide 22 mEq/L (23-29); Chloride 110 mEq/L (98-107); Glucose 84 mg/dL (70-105); Osmolality,Calculated 299 (280-300); Potassium 3.6 mEq/L (3.5-5.1); Sodium 142 mEq/L (136-145); eGFR For Non-African Americans 58 (> 60)
[2018-07-16] MEDS: Aspirin Enteric Coated 81 MG Tablet PO SCH (09:32)
[2018-07-16] MEDS: Multivit/Ca/Min/Fe/FA 1 TAB TABLET PO SCH (09:32)
--- NOTE | 2018-07-16 09:40 | Electrocardiograph Report ---
[address] [place], [place] [address] Test Date: 2018-07-15 Pat Name: Julian Jaramillo Department: [id number] Room: 3A25 Gender: M Executive Personal Assistant: : 1945 Requested By: Irving Amezcua Order Number: [id number] Reading MD: Elise Govea Measurements Intervals Horner Rate: 80 P: 38 NC: 164 QRS: -21 QRSD: 92 T: 4 QT: 388 QTc: 448 Interpretive Statements Sinus rhythm Borderline left axis deviation Low voltage, precordial leads Baseline wander Electronically Signed On 07-16-2018 9:38:46 EDT by Elise Govea
[2018-07-16] MEDS: 0.9 % Sodium Chloride 1,000 ML IVC SCH (11:03)
--- NOTE | 2018-07-16 14:26 | Internal Med Progress Note ---
<Raoul Briggs - Last Filed: 07/16/18 14:31> Hospitalist Progress Note - Encounter Date of Encounter: 07/16/18 Time of Encounter: 09:15 - Subjective Interval History: Patient seen and examined at bedside. He is still difficult to understand. He is able to answer some questions, but we will then go off on an unrelated tangent. Unable to hold a full conversation. He does not appear to be in any acute distress at this time. He has tried to get up out of the bed several times. He turns to his during interview, and stated that he was ready to go home. Awaiting placement to [facility]. - Exam Vitals: Temp Pulse Resp BP Pulse Ox 97.2 F L 62 17 127/82 95 07/16/18 10:53 07/16/18 10:53 07/16/18 10:53 07/16/18 10:53 07/16/18 10:53 Exam: General: Alert and oriented 0; difficult to understand, no acute distress HEENT: Head is atraumatic, normocephalic; mucous membranes appear dry Neck: Supple, trachea midline Respiratory: Exam limited; patient will not lean forward or take deep inspiration; no wheezing or rhonchi appreciated on limited exam Cardiovascular: RRR, +S1/+S2; no murmurs, rubs, gallops Abdomen: Soft, nontender Extremities: warm, radial pulses palpable and symmetrical Neurological: Unable to fully assess; follows some simple commands Skin: Dry, intact - Assessment and Plan (1) Altered mental status Current Visit: Yes Status: Acute Assessment and Plan: - Unknown etiology at this time; possibly secondary to progressive dementia versus encephalopathy - Patient has a known history of dementia - Per patient's , patient has had worsening dementia for the past 2 years, with a progressive decline in his daily functioning - She states that at baseline, patient is not able to hold a full conversation, but is verbal and able to communicate basic things - She states that over the past 2 weeks, he has not been able to feed himself properly, and has been walking around the house opening and closing doors - He is also not able to dress himself - She denies any new onset weakness, gait disturbance, or falls - On exam, patient is able to answer basic questions and follows some commands, such as sticking his tongue out, but is unable to hold a conversation properly, and appears to speak in random, unrelated sentences; he also speaks softly and is difficult to understand. He is however, able to maintain eye contact - No focal deficits appreciated on exam; low suspicion for CVA at this time - UDS negative; TSH, B12, folate within normal limits Plan: - Awaiting placement to ECF (2) Abnormal chest x-ray Current Visit: Yes Status: Acute Assessment and Plan: - Patient presented with altered mental status and intermittent cough per patients - Patient was afebrile; vital signs within normal limits on arrival; No elevation in white count - CXR demonstrated the presence of left basilar opacity, likely atelectasis or effusion with possible superimposed consolidation - On exam, patient does not appear to be in any respiratory distress; no cough or tachypnea Plan: - Blood cultures are pending 2 - Will hold off on antibiotic therapy for the time being; patient has documented history of penicillin allergy with difficulty breathing; is also on QT prolonging medications; QTc on arrival was 448 - If patient develops respiratory distress, fever, or elevated white count, will initiate antibiotic therapy (3) GERD (gastroesophageal reflux disease) Current Visit: Yes Status: Acute Assessment and Plan: - Continue home omeprazole (4) Hypertension Current Visit: Yes Status: Acute Assessment and Plan: - Continue home atenolol - Time Spent with Patient Total time spent is greater than 50% in coordination of care (as documented) at patient's floor/unit and/or counseling patient: Internal Medicine: Result - Labs CBC & Chem 7: 07/16/18 01:11 07/16/18 01:11 Labs: Short CBC 07/15/18 07/16/18 Range/Units 14:35 01:11 WBC 6.8 7.4 (4.3-11.1) K/mcL Hgb 14.1 13.7 (12.9-16.9) g/dL Hct 42.0 41.1 (37.5-50.1) % Plt Count 177 161 (140-400) K/mcL Neutrophils # 5.0 5.4 (1.6-8.9) K/mcL BMP 07/15/18 07/16/18 14:35 01:11 Sodium 142 142 Potassium 4.2 3.6 Chloride 109 H 110 H Carbon Dioxide 24 22 L BUN 30 H 29 H Creatinine 1.29 1.22 Glucose 93 84 Calcium 9.6 9.1 Liver Function 07/15/18 Range/Units 14:35 Total Bilirubin 0.7 (0.3-1.0) mg/dL Direct Bilirubin 0.1 (0.0-0.2) mg/dL AST 23 (13-39) Units/L ALT 19 (7-52) Units/L Alkaline Phosphatase 72 (34-104) Units/L Albumin 4.2 (3.5-5.7) g/dL Urine 07/15/18 Range/Units 16:10 Urine Color Yellow (Yellow) Urine Clarity Clear (Clear) Urine pH 5.5 (5.0-8.0) pH Units Ur Specific [place] 1.022 (1.010-1.025) Urine Protein Negative (Neg-Trace) mg/dL Urine Glucose (UA) Normal (Normal) mg/dL - Impressions Impressions Head CT 07/15/18 13:44 IMPRESSION: No acute intracranial abnormality. Moderate generalized atrophy. Moderate low-attenuation in the periventricular white matter, consistent with small vessel disease. There is disproportionate involvement of the left parietal periventricular white matter, similar to baseline study. D/ / Enio Oneill MD / Enio Oneill MD Interpreting Provider: Enio Oneill MD Consult Discharge Plan - Plan Referrals: Darin Alicea Jr, MD [Primary Care Provider] - <Sabina Castro - Last Filed: 07/16/18 17:11> Hospitalist Progress Note - Encounter Date of Encounter: 07/16/18 - Exam Vitals: Temp Pulse Resp BP Pulse Ox 98.1 F 66 16 119/77 96 07/16/18 14:00 07/16/18 14:00 07/16/18 14:00 07/16/18 14:00 07/16/18 14:00 - Time Spent with Patient Total time spent is greater than 50% in coordination of care (as documented) at patient's floor/unit and/or counseling patient: Internal Medicine: Result - Labs CBC & Chem 7: 07/16/18 01:11 07/16/18 01:11 Labs: Short CBC 07/16/18 Range/Units 01:11 WBC 7.4 (4.3-11.1) K/mcL Hgb 13.7 (12.9-16.9) g/dL Hct 41.1 (37.5-50.1) % Plt Count 161 (140-400) K/mcL Neutrophils # 5.4 (1.6-8.9) K/mcL BMP 07/16/18 01:11 Sodium 142 Potassium 3.6 Chloride 110 H Carbon Dioxide 22 L BUN 29 H Creatinine 1.22 Glucose 84 Calcium 9.1 - Attending Attestation I examined this patient and my medical decision-making was reviewed with the Resident Physician. I agree with the documented findings, disposition and treatment plan as described except to the extent set forth below. Anticipate patient will be here for >48 hours, needs additional IV fluid hydration. <Raoul Briggs - Last Filed: 07/16/18 14:31> (1) Altered mental status Qualifiers: Altered mental status type: delirium Qualified Code(s): R41.0 - Disorientation, unspecified (3) GERD (gastroesophageal reflux disease) Qualifiers: Qualified Code(s): K21.9 - Gastro-esophageal reflux disease without esophagitis (4) Hypertension Qualifiers: Qualified Code(s): I10 - Essential (primary) hypertension
[2018-07-16] MEDS ORDERED: diazePAM 10 MG/2 ML SYRINGE IVP ONE (19:51)
[2018-07-16] MEDS: risperiDONE 1 MG TABLET PO SCH (20:15)
[2018-07-17] MEDS ORDERED: *HR* Promethazine 25 MG/ML VIAL IVP ONE (00:50)
[2018-07-17] MEDS: Aspirin Enteric Coated 81 MG Tablet PO SCH (08:57)
[2018-07-17] MEDS: Multivit/Ca/Min/Fe/FA 1 TAB TABLET PO SCH (08:57)
--- NOTE | 2018-07-17 12:04 | Internal Med Progress Note ---
Hospitalist Progress Note - Encounter Date of Encounter: 07/17/18 Time of Encounter: 16:24 - Subjective Interval History: Patient required IV Valium overnight. Currently sleeping but arouses with command, appears to be at baseline but goes back to sleep. - Exam Vitals: Temp Pulse Resp BP Pulse Ox 97.8 F 78 18 116/81 95 07/17/18 07:00 07/17/18 07:00 07/17/18 07:00 07/17/18 07:00 07/17/18 07:00 Exam: General: Alert and oriented 0; difficult to understand, no acute distress HEENT: Head is atraumatic, normocephalic; mucous membranes appear dry Neck: Supple, trachea midline Respiratory: Exam limited; patient will not lean forward or take deep inspiration; no wheezing or rhonchi appreciated on limited exam Cardiovascular: RRR, +S1/+S2; no murmurs, rubs, gallops Abdomen: Soft, nontender Extremities: warm, radial pulses palpable and symmetrical Neurological: Unable to fully assess; follows some simple commands Skin: Dry, intact - Assessment and Plan (1) Altered mental status Current Visit: Yes Status: Acute Assessment and Plan: - Unknown etiology at this time; possibly secondary to progressive dementia versus encephalopathy - Per patient's , patient has had worsening dementia for the past 2 years, with a progressive decline in his daily functioning - She states that at baseline, patient is not able to hold a full conversation, but is verbal and able to communicate basic things - She states that over the past 2 weeks, he has not been able to feed himself properly, and has been walking around the house opening and closing doors - He is also not able to dress himself - denies any new onset weakness, gait disturbance, or falls - No focal deficits appreciated on exam; low suspicion for CVA at this time - UDS negative; TSH, B12, folate within normal limits Plan: - Awaiting placement to ECF (2) Abnormal chest x-ray Current Visit: Yes Status: Acute Assessment and Plan: - Patient presented with altered mental status and intermittent cough per patients - Patient was afebrile; vital signs within normal limits on arrival; No elevation in white count - CXR demonstrated the presence of left basilar opacity, likely atelectasis or effusion with possible superimposed consolidation - On exam, patient does not appear to be in any respiratory distress; no cough or tachypnea Plan: - Blood cultures are pending 2 - Will hold off on antibiotic therapy for the time being; patient has documented history of penicillin allergy with difficulty breathing; is also on QT prolonging medications; QTc on arrival was 448 - If patient develops respiratory distress, fever, or elevated white count, will initiate antibiotic therapy (3) Dementia Current Visit: Yes Status: Acute (4) GERD (gastroesophageal reflux disease) Current Visit: Yes Status: Acute (5) Hypertension Current Visit: Yes Status: Acute - Time Spent with Patient Total time spent is greater than 50% in coordination of care (as documented) at patient's floor/unit and/or counseling patient: Internal Medicine: Result - Labs CBC & Chem 7: 07/16/18 01:11 07/16/18 01:11 Consult Discharge Plan - Plan Referrals: Darin Alicea Jr, MD [Primary Care Provider] - (1) Altered mental status Qualifiers: Altered mental status type: delirium Qualified Code(s): R41.0 - Disorientation, unspecified (3) Dementia Qualifiers: Dementia type: unspecified type Dementia behavioral disturbance: with behavioral disturbance Qualified Code(s): F03.91 - Unspecified dementia with behavioral disturbance (4) GERD (gastroesophageal reflux disease) Qualifiers: Qualified Code(s): K21.9 - Gastro-esophageal reflux disease without esophagitis (5) Hypertension Qualifiers: Qualified Code(s): I10 - Essential (primary) hypertension
[2018-07-17] MEDS ORDERED: Ringers Solution, Lactated 1,000 ML IVC SCH (12:15)
[2018-07-17] MEDS: risperiDONE 1 MG TABLET PO SCH ×2 (20:20→20:22)
[2018-07-18] MEDS ORDERED: Melatonin 3 MG TABLET PO PRN (01:10)
[2018-07-18] MEDS: Multivit/Ca/Min/Fe/FA 1 TAB TABLET PO SCH (09:56)
[2018-07-18] MEDS: Aspirin Enteric Coated 81 MG Tablet PO SCH (09:56)
--- NOTE | 2018-07-18 17:59 | Internal Med Progress Note ---
<Raoul Briggs - Last Filed: 07/18/18 17:58> Hospitalist Progress Note - Encounter Date of Encounter: 07/18/18 Time of Encounter: 09:35 - Subjective Interval History: Patient was seen and examined at bedside. Does not appear to be in any acute distress. Patients mental status appears unchanged. Awaiting placement to ECF; patient will be discharged Friday. - Exam Vitals: Temp Pulse Resp BP Pulse Ox 98.6 F 80 18 113/77 99 07/18/18 11:02 07/18/18 11:02 07/18/18 11:02 07/18/18 11:02 07/18/18 11:02 Exam: General: Alert and oriented 0; difficult to understand, no acute distress HEENT: Head is atraumatic, normocephalic; mucous membranes appear dry Neck: Supple, trachea midline Respiratory: Exam limited; patient will not lean forward or take deep inspiration; no wheezing or rhonchi appreciated on limited exam Cardiovascular: RRR, +S1/+S2; no murmurs, rubs, gallops Abdomen: Soft, nontender Extremities: warm, radial pulses palpable and symmetrical Neurological: Unable to fully assess; follows some simple commands Skin: Dry, intact - Assessment and Plan (1) Altered mental status Current Visit: Yes Status: Acute Assessment and Plan: - Unknown etiology at this time; possibly secondary to progressive dementia versus encephalopathy - Patient has a known history of dementia - Per patient's , patient has had worsening dementia for the past 2 years, with a progressive decline in his daily functioning - She states that at baseline, patient is not able to hold a full conversation, but is verbal and able to communicate basic things - She states that over the past 2 weeks, he has not been able to feed himself properly, and has been walking around the house opening and closing doors - He is also not able to dress himself - She denies any new onset weakness, gait disturbance, or falls - On exam, patient is able to answer basic questions and follows some commands, such as sticking his tongue out, but is unable to hold a conversation properly, and appears to speak in random, unrelated sentences; he also speaks softly and is difficult to understand. He is however, able to maintain eye contact - No focal deficits appreciated on exam; low suspicion for CVA at this time - UDS negative; TSH, B12, folate within normal limits Plan: - Awaiting placement to ECF (2) Abnormal chest x-ray Current Visit: Yes Status: Acute Assessment and Plan: - Patient presented with altered mental status and intermittent cough per patie nts - Patient was afebrile; vital signs within normal limits on arrival; No elevation in white count - CXR demonstrated the presence of left basilar opacity, likely atelectasis or effusion with possible superimposed consolidation - On exam, patient does not appear to be in any respiratory distress; no cough or tachypnea Plan: - Blood cultures are pending 2 - Will hold off on antibiotic therapy for the time being; patient has documented history of penicillin allergy with difficulty breathing; is also on QT prolonging medications; QTc on arrival was 448 - If patient develops respiratory distress, fever, or elevated white count, will initiate antibiotic therapy (3) GERD (gastroesophageal reflux disease) Current Visit: Yes Status: Acute Assessment and Plan: - Continue home omeprazole (4) Hypertension Current Visit: Yes Status: Acute Assessment and Plan: - Continue home atenolol - Time Spent with Patient Total time spent is greater than 50% in coordination of care (as documented) at patient's floor/unit and/or counseling patient: Internal Medicine: Result - Labs CBC & Chem 7: 07/16/18 01:11 07/16/18 01:11 Consult Discharge Plan - Plan Referrals: Darin Alicea Jr, MD [Primary Care Provider] - <Sabina Castro - Last Filed: 07/18/18 21:03> Hospitalist Progress Note - Encounter Date of Encounter: 07/18/18 - Exam Vitals: Temp Pulse Resp BP Pulse Ox 98.6 F 80 18 113/77 99 07/18/18 11:02 07/18/18 11:02 07/18/18 11:02 07/18/18 11:02 07/18/18 11:02 - Assessment and Plan (1) Altered mental status Current Visit: Yes Status: Acute (2) Abnormal chest x-ray Current Visit: Yes Status: Acute (3) Dementia Current Visit: Yes Status: Acute (4) GERD (gastroesophageal reflux disease) Current Visit: Yes Status: Acute (5) Hypertension Current Visit: Yes Status: Acute - Time Spent with Patient Total time spent is greater than 50% in coordination of care (as documented) at patient's floor/unit and/or counseling patient: Internal Medicine: Result - Labs CBC & Chem 7: 07/16/18 01:11 07/16/18 01:11 - Attending Attestation I examined this patient and my medical decision-making was reviewed with the Resident Physician. I agree with the documented findings, disposition and treatment plan as described except to the extent set forth below. <Raoul Briggs - Last Filed: 07/18/18 17:58> (1) Altered mental status Qualifiers: Altered mental status type: delirium Qualified Code(s): R41.0 - Disorientation, unspecified (3) GERD (gastroesophageal reflux disease) Qualifiers: Qualified Code(s): K21.9 - Gastro-esophageal reflux disease without es ophagitis (4) Hypertension Qualifiers: Qualified Code(s): I10 - Essential (primary) hypertension <Sabina Castro - Last Filed: 07/18/18 21:03> (1) Altered mental status Qualifiers: Altered mental status type: delirium Qualified Code(s): R41.0 - Disorientation, unspecified (3) Dementia Qualifiers: Dementia type: unspecified type Dementia behavioral disturbance: with behavioral disturbance Qualified Code(s): F03.91 - Unspecified dementia with behavioral disturbance (4) GERD (gastroesophageal reflux disease) Qualifiers: Qualified Code(s): K21.9 - Gastro-esophageal reflux disease without esophagitis (5) Hypertension Qualifiers: Qualified Code(s): I10 - Essential (primary) hypertension
[2018-07-18] MEDS: risperiDONE 1 MG TABLET PO SCH (20:11)
[2018-07-19] MEDS: Aspirin Enteric Coated 81 MG Tablet PO SCH (07:43)
[2018-07-19] MEDS: Multivit/Ca/Min/Fe/FA 1 TAB TABLET PO SCH (07:43)
[2018-07-19 11:30] VITALS: BP 111/69
--- NOTE | 2018-07-19 12:40 | Discharge Summary ---
<Raoul Briggs - Last Filed: 07/19/18 12:37> Orders not resulted at time of discharge: Pending orders 07/15/18 14:38 Culture,Blood [BC] Stat 07/16/18 01:11 Vitamin B1 (Thiamine) Whole Bl AM 0400 Date of Encounter: 07/19/18 Time of Encounter: 12:51 - Discharge Diagnosis (1) Altered mental status Priority: Primary Status: Acute Qualifiers: Altered mental status type: delirium Qualified Code(s): R41.0 - Disorientation, unspecified (2) Abnormal chest x-ray Priority: Secondary Status: Acute (3) GERD (gastroesophageal reflux disease) Priority: Secondary Status: Acute Qualifiers: Qualified Code(s): K21.9 - Gastro-esophageal reflux disease without esophagitis (4) Hypertension Priority: Secondary Status: Acute Qualifiers: Qualified Code(s): I10 - Essential (primary) hypertension Hospital course: Mr. Jaramillo is a 73-year-old male with a PMH of HTN, GERD, dementia who was brought to [facility] ED on 07/15/18 by his for a 3 day history of worsening mental status. reports the patient has become more agitated and resistant to home health care. He is reportedly not been communicating appropriately or making sense of his words. She reported that he has been wandering around the house opening and closing doors during both day and night hours, as well as refusing to wear clothing. He is also had a worsening cough. She also reports that his urine output has decreased. Review of systems unobtainable from patient. On arrival to the emergency department, vital signs demonstrated the following: Temperature 98.3, pulse 87, respiratory rate 18, blood pressure 120/86, O2 saturation 97. Laboratory analysis was unremarkable. Urinalysis s howed small amount of urine ketones. CXR demonstrated Left basilar opacities; likely atelectasis/effusion; possible superimposed infiltrate. CT of the head demonstrated No acute process; chronic changes associated with small vessel disease; unchanged from previous. EKG demonstrated sinus rhythm, borderline left axis deviation, rate of 80 bpm. NV interval of 164, QRS 90, QTc interval 448. No significant ST segment elevations. No depressions, pathologic Q waves. Abnormal T-wave inversion in lead 3; isolated and consistent with prior EKG on 04/30. In the emergency department, patient was given a one-time dose of Rocephin and Zithromax. He was then started on Levaquin. Blood cultures were ordered 2 and are currently pending. Patient was seen and examined at bedside in the emergency department, accompanied by his . According to his , patient's mental status had declined over the course last 2 weeks. She states that at baseline, he is unable to have a meaningful conversation, but does have a limited capacity to speak and understandable sentences. He spoke in disconnected sentences unrelated to one another. Was able to follow some simple commands, such as sticking his tongue out. reported that his functional status at home began to decline, including staying up during all hours of the night, not being able to dress himself properly, and being unable to feed himself. Patient was admitted for observation. Vitamin B12 and TSH levels were checked, which were within normal limits. Urine drug screen was negative. After lengthy discussion with patients , decision was made to place him at an ECF due to the fact that he is unable to care for himself. During his stay in the hospital, patients condition remained stable. He did not exhibit any signs of respiratory distress, including cough, tachypnea, or increased sputum production. Decision was made not to treat for pneumonia, as clinical suspicion was low. Patient was seen and examined on date of discharge. Does not appear to be in any acute distress at this time. Mental status appears unchanged since when he was first admitted to the hospital. Review of systems is unobtainable, as he is unable to fully answer questions. He has been eating on his own about difficulty. Patient will be discharged in stable condition. - Time Spent with Patient Total time spent providing and/or coordinating discharge services: - Discharge Medications Prescriptions: Continued risperiDONE [Risperidone] 1 mg PO HS Oxybutynin Chloride [Ditropan Xl] 10 mg PO DAILY Citalopram [CeleXA] 20 mg PO DAILY Omeprazole [PriLOSEC] 20 mg PO DAILY Multivitamin,Therapeutic [Thera-Tabs] 1 each PO DAILY Aspirin [Lo-Dose Aspirin EC] 81 mg PO DAILY Atenolol [Tenormin] 25 mg PO DAILY Naproxen [Naprosyn] 500 mg PO DAILY Home Medications: Aspirin [Lo-Dose Aspirin EC] 81 mg PO DAILY 07/15/18 [History] Atenolol [Tenormin] 25 mg PO DAILY 07/15/18 [History] Citalopram [CeleXA] 20 mg PO DAILY 07/15/18 [History] Multivitamin,Therapeutic [Thera-Tabs] 1 each PO DAILY 07/15/18 [History] Naproxen [Naprosyn] 500 mg PO DAILY 07/15/18 [History] Omeprazole [PriLOSEC] 20 mg PO DAILY 07/15/18 [History] Oxybutynin Chloride [Ditropan Xl] 10 mg PO DAILY 07/15/18 [History] risperiDONE [Risperidone] 1 mg PO HS 07/15/18 [History] Allergies/Adverse Reactions: Allergy/AdvReac Type Severity Reaction Status Date / Time Penicillins Allergy Difficulty Verified 07/15/18 19:49 Breathing Date of admission: 07/16/18 13:55 Primary care physician: Darin Alicea Jr, MD Consults: 07/15/18 19:59 Consult to Chemical Production Machine Operator [CONS] Routine Reason for SW Consult: discharge planning Discharging clinician: Raoul Briggs Anticipated date of discharge: 07/19/18 - Constitutional Vitals: Temp Pulse Resp BP Pulse Ox 98.4 F 63 16 111/69 96 07/19/18 11:29 07/19/18 11:29 07/19/18 11:29 07/19/18 11:29 07/19/18 11:29 Exam: General: Alert and oriented 0; difficult to understand, no acute distress HEENT: Head is atraumatic, normocephalic; mucous membranes appear dry Neck: Supple, trachea midline Respiratory: Exam limited; patient will not lean forward or take deep inspiration; no wheezing or rhonchi appreciated on limited exam Cardiovascular: RRR, +S1/+S2; no murmurs, rubs, gallops Abdomen: Soft, nontender Extremities: warm, radial pulses palpable and symmetrical Neurological: Unable to fully assess; follows some simple commands Skin: Dry, intact - Patient Status Disposition: Transfer SNF Condition: Fair Overall status at discharge: patient is not back to baseline - Discharge Instructions Follow Up With: Darin Alicea Jr, MD [Primary Care Provider] - Additional Instructions: Follow-up appointments: If there is not an appointment listed below, please call your physician and schedule a follow-up appointment. If you have congestive heart failure and your symptoms return, make an appointment with your physician. Medication List: Carry an up to date list of medications you are taking at all time. We have given you an updated medication list including any new medications that you have been prescribed. Please provide that list to your primary provider Symptoms: If your condition changes or you experience any of the following symptoms, notify your physician immediately: Unusual or worsening pain, fever, persistent nausea and vomiting, bleeding, increase in swelling (especially in your legs), sudden weight gain, extreme d izziness, chest pain, increased drainage or redness from a wound or incision. Go to the emergency department if you experience a problem with breathing. Weights: If you have a history of swelling or shortness of breath, weigh yourself daily and notify your physician if you have a weight gain of two or more pounds in one day or 5 or more pounds in a week. If you experience any of the warning signs for stroke: Sudden numbness or weakness of the face, arm or leg; especially on one side of the body, sudden confusion, trouble speaking or understanding, sudden trouble seeing in one or both eyes, sudden trouble walking, dizziness, loss of balance or coordination, sudden sever headache with no cause; Call 911 or go to the emergency room. Stroke is a medical emergency. Some risk factors for stroke: Age, cigarette smoking, diabetes, excessive alcohol consumption, family history, high blood pressure, overweight, physical inactivity, prior stroke, heart attack, diagnosis of carotid artery stenosis or other artery disease. If you smoke, STOP: Smoking or tobacco use significantly increases your risk of heart and lung disease. Your chance of disease greatly increases if you continue to smoke. For more information, call the [place] tobacco quit line for smoking cessation 7-592-PMHT-NOW ( ) - Diet and Activity Activity: increase activity as tolerated Diet: advance to your usual diet <Sabina Castro - Last Filed: 07/19/18 16:01> Orders not resulted at time of discharge: Pending orders 07/15/18 14:38 Culture,Blood [BC] Stat 07/16/18 01:11 Vitamin B1 (Thiamine) Whole Bl AM 0400 Date of Encounter: 07/19/18 - Discharge Diagnosis (1) Altered mental status Status: Acute Qualifiers: Altered mental status type: delirium Qualified Code(s): R41.0 - Disorientation, unspecified (2) Abnormal chest x-ray Status: Acute (3) Dementia Status: Acute Qualifiers: Dementia type: unspecified type Dementia behavioral disturbance: with behavioral disturbance Qualified Code(s): F03.91 - Unspecified dementia with behavioral disturbance (4) GERD (gastroesophageal reflux disease) Status: Acute Qualifiers: Qualified Code(s): K21.9 - Gastro-esophageal reflux disease without esophagitis (5) Hypertension Status: Acute Qualifiers: Qualified Code(s): I10 - Essential (primary) hypertension Hospital course: Mr. Jaramillo is a 73 year old male - Time Spent with Patient Total time spent providing and/or coordinating discharge services: Date of admission: 07/16/18 13:55 Primary care physician: Darin Alicea Jr, MD Consults: 07/15/18 19:59 Consult to Chemical Production Machine Operator [CONS] Routine Reason for SW Consult: discharge planning - Constitutional Vitals: Temp Pulse Resp BP Pulse Ox 98.4 F 63 16 111/69 96 07/19/18 11:29 07/19/18 11:29 07/19/18 11:29 07/19/18 11:29 07/19/18 11:29 - Attending Attestation I examined this patient and my medical decision-making was reviewed with the Resident Physician. I agree with the documented findings, disposition and treatment plan as described except to the extent set forth below.
--- NOTE | 2018-07-19 12:55 | Physician Discharge Referral ---
ExtendedCare Referral Info Provider in Charge after Transfer: PCP - Diagnosis (1) Altered mental status Priority: Primary Status: Acute (2) Abnormal chest x-ray Priority: Secondary Status: Acute (3) GERD (gastroesophageal reflux disease) Priority: Secondary Status: Acute (4) Hypertension Priority: Secondary Status: Acute - Transfer Medications Home Medications: Aspirin [Lo-Dose Aspirin EC] 81 mg PO DAILY 07/15/18 [History] Atenolol [Tenormin] 25 mg PO DAILY 07/15/18 [History] Citalopram [CeleXA] 20 mg PO DAILY 07/15/18 [History] Multivitamin,Therapeutic [Thera-Tabs] 1 each PO DAILY 07/15/18 [History] Naproxen [Naprosyn] 500 mg PO DAILY 07/15/18 [History] Omeprazole [PriLOSEC] 20 mg PO DAILY 07/15/18 [History] Oxybutynin Chloride [Ditropan Xl] 10 mg PO DAILY 07/15/18 [History] risperiDONE [Risperidone] 1 mg PO HS 07/15/18 [History] Allergies/Adverse Reactions: Allergy/AdvReac Type Severity Reaction Status Date / Time Penicillins Allergy Difficulty Verified 07/15/18 19:49 Breathing - Respiratory Orders Smoking Cessation: Smoking cessation has been advised. For more information, call the [place] Tobacco Quit Line at 5-902-UNQTNOW. - Diet Orders Regular CERTIFICATION: I certify that the transfer of the above named patient to an Extended Care Facility is necessary for the continuing treatment of the diagnosis listed. The above information is true and accurate reflection of patient's current condition. Confidential - Redisclosure prohibited without a patient's written consent.
== END 2018-07-19 14:37 | DRG 884 ==
LOC: EMEROOARM 13:29 → 3ANU 13:29 → SUATTDRO 17:17 → 3ANU 18:45
PROVIDERS: ADMIT Internal Medicine Nephrology; ATTEND Student in an Organized Health Care Education/Training Program

== ENCOUNTER 2018-10-29 13:34 | Inpatient (IN) ==
--- NOTE | 2018-10-29 13:44 | Emergency Department Note ---
Disposition Clinical Impression: SIRS (systemic inflammatory response syndrome), Atrial fibrillation with RVR Altered mental status Qualifiers: Altered mental status type: somnolence Qualified Code(s): R40.0 - Somnolence Disposition: Admitted As Inpatient Condition: Serious Referrals: Darin Alicea Jr, MD [Primary Care Provider] - Time of Disposition: 17:48 General Adult HPI - General Stated complaint: AMS Time Seen by Provider: 10/29/18 13:36 Nursing Notes Reviewed: Yes Vital Signs Reviewed: Yes - Related Data Home Medications Medication Instructions Recorded Confirmed Aspirin [Lo-Dose Aspirin EC] 81 mg PO DAILY 07/15/18 10/29/18 Multivitamin,Therapeutic 1 each PO DAILY 07/15/18 10/29/18 [Thera-Tabs] ALPRAZolam [Xanax 0.5 MG Tablet] 0.5 mg PO DAILY 10/29/18 10/29/18 Divalproex (12 HR) [Depakote (12 500 mg PO BID 10/29/18 10/29/18 HR)] Haloperidol 2 mg PO Q8H PRN 10/29/18 10/29/18 Haloperidol Lactate [Haldol] 2 mg IM Q8H PRN 10/29/18 10/29/18 Ipratropium/Albuterol Neb [Duoneb] 3 ml IH Q6HR 10/29/18 10/29/18 Loperamide HCl [Imodium A-D] 2 mg PO PRN PRN 10/29/18 10/29/18 Magnesium Hydroxide [Milk of 30 ml PO Q72H PRN 10/29/18 10/29/18 Magnesia] Pantoprazole Sodium [Protonix] 40 mg PO DAILY 10/29/18 10/29/18 Sertraline [Zoloft] 50 mg PO DAILY 10/29/18 10/29/18 Allergies Allergy/AdvReac Type Severity Reaction Status Date / Time Penicillins Allergy Difficulty Verified 07/15/18 19:49 Breathing Past Medical History - Past Medical History Medical history: Reports: DVT, dementia, GERD, hypertension Surgical history: Reports: orthopedic, other Psychiatric history: Reports: depression - Social History Smoking Status: Former smoker Smokeless Tobacco Status: No Alcohol use: Reports: none Drug use: Reports: none Course Vital Signs Temperature 99.6 F 10/29/18 13:37 Pulse Rate 201 10/29/18 13:37 Respiratory Rate 20 10/29/18 13:37 Blood Pressure 142/111 10/29/18 13:37 O2 Sat by Pulse Oximetry 97 10/29/18 13:37 Temperature 99.6 F 10/29/18 13:37 Pulse Rate 166 10/29/18 18:48 Respiratory Rate 26 10/29/18 18:48 Blood Pressure 119/80 10/29/18 18:48 O2 Sat by Pulse Oximetry 95 10/29/18 18:48 Oxygen Delivery Oxygen Delivery Room Air Medical Decision Making - Lab Data Result diagrams: 10/29/18 14:06 10/29/18 14:06 Lab Results 10/29/18 10/29/18 10/29/18 Range/Units 13:57 14:06 14:06 WBC 20.7 H (4.3-11.1) K/mcL RBC 4.70 (4.19-5.50) M/mcL Hgb 15.5 (12.9-16.9) g/dL Hct 49.3 (37.5-50.1) % MCV 104.9 H (83.0-100.0) fL MCH 33.0 (28.0-33.3) pg MCHC 31.4 L (31.6-35.5) g/dL RDW 13.6 (11.5-14.5) % Plt Count 140 (140-400) K/mcL MPV 12.3 (9.4-12.4) fL Immature Gran % 0.9 (0-4) % Seg Neutrophils % 87.4 % Lymphocytes % 5.5 % Monocytes % 6.1 % Eosinophils % 0.0 % Basophils % 0.1 % Neutrophils # 18.1 H (1.6-8.9) K/mcL Lymphocytes # 1.2 (0.6-4.6) K/mcL Monocytes # 1.3 (0.0-1.3) K/mcL Eosinophils # 0.0 (0.0-0.6) K/mcL Basophils # 0.0 (0.0-0.2) K/mcL Nucleated RBCs/100 WBC 0.1 H (0) /100 WBC PT 16.1 H (9.4-12.1) Seconds INR 1.4 APTT 26.2 (26.0-36.0) Seconds Sodium (136-145) mEq/L Potassium (3.5-5.1) mEq/L Chloride (98-107) mEq/L Carbon Dioxide (23-29) mEq/L BUN (8-23) mg/dL Creatinine (0.70-1.30) mg/dL Est GFR ( Amer) (> 60) Est GFR (Non-Af Amer) (> 60) BUN/Creatinine Ratio (6-26) Glucose (70-105) mg/dL Calculated Osmolality (280-300) Lactic Acid (0.5-2.2) mmol/L Calcium (8.6-10.3) mg/dL Phosphorus (2.7-4.5) mg/dL Magnesium (1.6-2.6) mg/dL Total Bilirubin (0.3-1.0) mg/dL Direct Bilirubin (0.0-0.2) mg/dL Indirect Bilirubin (0.0-1.2) mg/dL AST (13-39) Units/L ALT (7-52) Units/L Alkaline Phosphatase (34-104) Units/L Troponin I (< 0.04) ng/mL Serum Total Protein (6.4-8.9) g/dL Albumin (3.5-5.7) g/dL Globulin (2.4-3.5) g/dL Albumin/Globulin Ratio (1.1-2.2) Urine Color Dark Yellow (Yellow) Urine Clarity Clear (Clear) Urine pH 5.0 (5.0-8.0) pH Units Ur Specific [place] 1.026 H (1.010-1.025) Urine Protein Trace (Neg-Trace) mg/dL Urine Glucose (UA) Normal (Normal) mg/dL Urine Ketones Negative (Negative) mg/dL Urine Blood Negative (Negative) Urine Nitrite Negative (Negative) Urine Bilirubin Small H (Negative) Urine Urobilinogen Normal (Normal) mg/dL Ur Leukocyte Esterase Negative (Negative) Ur Culture Indicated? NO (NO) 10/29/18 10/29/18 10/29/18 Range/Units 14:06 14:06 17:45 WBC (4.3-11.1) K/mcL RBC (4.19-5.50) M/mcL Hgb (12.9-16.9) g/dL Hct (37.5-50.1) % MCV (83.0-100.0) fL MCH (28.0-33.3) pg MCHC (31.6-35.5) g/dL RDW (11.5-14.5) % Plt Count (140-400) K/mcL MPV (9.4-12.4) fL Immature Gran % (0-4) % Seg Neutrophils % % Lymphocytes % % Monocytes % % Eosinophils % % Basophils % % Neutrophils # (1.6-8.9) K/mcL Lymphocytes # (0.6-4.6) K/mcL Monocytes # (0.0-1.3) K/mcL Eosinophils # (0.0-0.6) K/mcL Basophils # (0.0-0.2) K/mcL Nucleated RBCs/100 WBC (0) /100 WBC PT (9.4-12.1) Seconds INR APTT (26.0-36.0) Seconds Sodium 161 H* (136-145) mEq/L Potassium 4.5 (3.5-5.1) mEq/L Chloride 122 H (98-107) mEq/L Carbon Dioxide 25 (23-29) mEq/L BUN 63 H (8-23) mg/dL Creatinine 1.85 H (0.70-1.30) mg/dL Est GFR ( Amer) 43 L (> 60) Est GFR (Non-Af Amer) 36 L (> 60) BUN/Creatinine Ratio 34 H (6-26) Glucose 149 H (70-105) mg/dL Calculated Osmolality 353 H (280-300) Lactic Acid 2.7 H 1.7 (0.5-2.2) mmol/L Calcium 9.1 (8.6-10.3) mg/dL Phosphorus 4.6 H (2.7-4.5) mg/dL Magnesium 3.0 H (1.6-2.6) mg/dL Total Bilirubin 1.3 H (0.3-1.0) mg/dL Direct Bilirubin 0.4 H (0.0-0.2) mg/dL Indirect Bilirubin 0.9 (0.0-1.2) mg/dL AST 28 (13-39) Units/L ALT 47 (7-52) Units/L Alkaline Phosphatase 71 (34-104) Units/L Troponin I 0.07 H* (< 0.04) ng/mL Serum Total Protein 6.7 (6.4-8.9) g/dL Albumin 3.4 L (3.5-5.7) g/dL Globulin 3.3 (2.4-3.5) g/dL Albumin/Globulin Ratio 1.0 L (1.1-2.2) Urine Color (Yellow) Urine Clarity (Clear) Urine pH (5.0-8.0) pH Units Ur Specific [place] (1.010-1.025) Urine Protein (Neg-Trace) mg/dL Urine Glucose (UA) (Normal) mg/dL Urine Ketones (Negative) mg/dL Urine Blood (Negative) Urine Nitrite (Negative) Urine Bilirubin (Negative) Urine Urobilinogen (Normal) mg/dL Ur Leukocyte Esterase (Negative) Ur Culture Indicated? (NO) Critical Care Time Critical Care Time: Yes Total Critical Care Time: 40 Attestation: Critical care performed: Time is exclusive of separately billable procedures. Time includes: direct patient care, patient reassessment, coordination of patient care, interpretation of data (laboratory data, radiology data, and respiratory data), review of patient's medical records, medical consultation and documentation of patient care. Procedures included in critical care time: Procedures excluded from critical care time: Attestation Statement - Attestation Attestation: I examined this patient and my medical decision-making was reviewed with the Resident Physician. I agree with the documented findings, disposition and treatment plan as described except to the extent set forth below. Patient to ED with a chief complaint of altered mental status. Sent in from a [facility]. Patient was sitting up in his wheelchair this weekend. Today he has decreased responsiveness. He is noted to be a DNR comfort care. History of a recent admission for UTI. On exam he is awake and arousable. Nonverbal. Moves extremities. Abdomen soft. Heart is tachycardia and regular. Lungs clear. Plan. His labs sent with him from the [facility]. He is hyponatremic with a leukocytosis. Septic workup and IV hydration. No source of infection found. Patient continues to be altered. Likely secondary to his elevated sodium. Nephrology has been consult it. Family is debating palliative care at this time. He is to remain a DNR comfort care. Ant ibiotics broad-spectrum or ordered. IV hydration prior nephrology recommendations. Patient is on IV Cardizem for atrial fibrillation with RVR. Had a conversation with the patient's . She confirms he is to be DNR comfort care. No invasive procedures. No CPR No intubations. They are okay wi th medications. Patient is admitted to ICU. Chest X-Ray 10/29/18 13:41 IMPRESSION: No acute process. Resolution of previously seen left pleural effusion and left basilar opacity. D/ / 10/29/2018 15:00:00 Dallas Reynolds MD / susi Interpreting Provider: Dallas Reynolds MD Head CT 10/29/18 13:41 IMPRESSION: 1. No convincing acute intracranial abnormality. 2. 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 3. Global parenchymal volume loss with chronic microvascular ischemic changes. 4. Atherosclerosis. D/ / Shen Baeza MD / Shen Baeza MD Interpreting Provider: Shen Baeza MD
[2018-10-29] MEDS ORDERED: 0.9 % Sodium Chloride 1,000 ML IVC SCH ×2 (13:45→13:49)
--- NOTE | 2018-10-29 13:47 | Emergency Department Note ---
Disposition Clinical Impression: SIRS (systemic inflammatory response syndrome), Atrial fibrillation with RVR Altered mental status Qualifiers: Altered mental status type: delirium Qualified Code(s): R41.0 - Disorientation, unspecified Disposition: Admitted As Inpatient Referrals: Darin Alicea Jr, MD [Partnered Physician] - Time of Disposition: 19:05 Altered Mental Status HPI - General Stated Complaint: AMS Time Seen by Provider: 10/29/18 13:36 Source: EMS Mode of arrival: EMS Limitations: altered mental status Nursing Notes Reviewed: Yes Vital Signs Reviewed: Yes - History of Present Illness HPI Narrative: 73M with dementia who is DNR-CC presents to the ER with AMS from a half-way. Pt was found to have abnormal outpatient labs showing hypernatremia and worsening kidney function. The patient is normally able to function on his own at the half-way but has had decreased mentation and has not been able to feed himself or get around in his wheelchair for the past few days. Pt is somnolent on exam and unable to provide further history. - Related Data Home Medications Medication Instructions Recorded Confirmed Aspirin [Lo-Dose Aspirin EC] 81 mg PO DAILY 07/15/18 07/15/18 Multivitamin,Therapeutic 1 each PO DAILY 07/15/18 07/15/18 [Thera-Tabs] ALPRAZolam [Xanax 0.5 MG Tablet] 0.5 mg PO DAILY 10/29/18 10/29/18 Divalproex (12 HR) [Depakote (12 500 mg PO BID 10/29/18 10/29/18 HR)] Haloperidol 2 mg PO Q8H PRN 10/29/18 10/29/18 Haloperidol Lactate [Haldol] 2 mg IM Q8H PRN 10/29/18 10/29/18 Ipratropium/Albuterol Neb [Duoneb] 3 ml IH Q6HR 10/29/18 10/29/18 Loperamide HCl [Imodium A-D] 2 mg PO PRN PRN 10/29/18 10/29/18 Magnesium Hydroxide [Milk of 30 ml PO Q72H PRN 10/29/18 10/29/18 Magnesia] Pantoprazole Sodium [Protonix] 40 mg PO DAILY 10/29/18 10/29/18 Sertraline [Zoloft] 50 mg PO DAILY 10/29/18 10/29/18 Allergies Allergy/AdvReac Type Severity Reaction Status Date / Time Penicillins Allergy Difficulty Verified 07/15/18 19:49 Breathing Limitations: ROS unobtainable due to patients medical condition Past Medical History - Past Medical History Source: old records reviewed Medical history: Reports: DVT, dementia, GERD, hypertension Surgical history: Reports: orthopedic, other Psychiatric history: Reports: depression - Social History Smoking Status: Former smoker Smokeless Tobacco Status: No Alcohol use: Reports: none Drug use: Reports: none Physical Exam - General Limitations: altered mental status General appearance: other (somnolent) - Head Head exam: atraumatic, normocephalic - Eye Eye exam: Present: normal appearance, EOMI - ENT ENT exam: mucous membranes dry - Chest Chest inspection: Present: normal inspection. Absent: tenderness, rash - Respiratory Respiratory exam: Present: normal lung sounds bilaterally. Absent: respiratory distress, wheezes - Cardiovascular Cardiovascular exam: Present: tachycardia, irregular rhythm - Abdominal Exam Abdominal exam: Present: soft, Non-Tender. Absent: distention, guarding, rebound, rigidity - Extremities Exam Extremities exam: Present: normal inspection. Absent: tenderness, pedal edema - Psychiatric Psychiatric exam: Present: normal affect, normal mood - Skin Skin exam: Present: warm, dry, intact Course Vital Signs Temperature 99.6 F 10/29/18 13:37 Pulse Rate 201 10/29/18 13:37 Respiratory Rate 20 10/29/18 13:37 Blood Pressure 142/111 10/29/18 13:37 O2 Sat by Pulse Oximetry 97 10/29/18 13:37 Temperature 99.6 F 10/29/18 13:37 Pulse Rate 166 10/29/18 18:48 Respiratory Rate 26 10/29/18 18:48 Blood Pressure 119/80 10/29/18 18:48 O2 Sat by Pulse Oximetry 95 10/29/18 18:48 Oxygen Delivery Oxygen Delivery Room Air Altered Mental Status - MDM Narrative Medical decision making narrative: Patient presents from half-way with altered mental status and looks to be clinically dehydrated. We will obtain a septic workup and start with a 1 L fluid bolus as the patient is severely hypernatremic at 159. We will also obtain a head CT, chest x-ray, EKG and urinalysis. 1520 - patient's labs demonstrated significant hypernatremia of 161 along with other lab abnormalities suggestive of acute kidney injury and dehydration. Spoke with Dr. Hernández, leather sprayer, who suggests the patient be given several liters of D5 in water at 125 mL/hour with q8H sodium checks. Patient's is now here and states that the patient would not want any extraordinary measures done. She is considering palliative care for the patient as he has deteriorated rather quickly. We will continue all treatments until she has made a final decision on this patient's care. 174 - patient's heart rate has decreased to 160 on the Cardizem. We will start him on broad-spectrum antibiotics as there is no clear source of infection. Patient's family is agreeable with admission today with a palliative consultation tomorrow for further management of their goals of care. 1901 - pt has been accepted by Dr. Hall for admission to the ICU. - Medical Records Medical records reviewed: Yes I reviewed the patient's medical records. - Lab Data Lab results reviewed: Yes I reviewed the patient's lab results. Result diagrams: 10/29/18 14:06 10/29/18 14:06 Lab Results 10/29/18 10/29/18 10/29/18 Range/Units 13:57 14:06 14:06 WBC 20.7 H (4.3-11.1) K/mcL RBC 4.70 (4.19-5.50) M/mcL Hgb 15.5 (12.9-16.9) g/dL Hct 49.3 (37.5-50.1) % MCV 104.9 H (83.0-100.0) fL MCH 33.0 (28.0-33.3) pg MCHC 31.4 L (31.6-35.5) g/dL RDW 13.6 (11.5-14.5) % Plt Count 140 (140-400) K/mcL MPV 12.3 (9.4-12.4) fL Immature Gran % 0.9 (0-4) % Seg Neutrophils % 87.4 % Lymphocytes % 5.5 % Monocytes % 6.1 % Eosinophils % 0.0 % Basophils % 0.1 % Neutrophils # 18.1 H (1.6-8.9) K/mcL Lymphocytes # 1.2 (0.6-4.6) K/mcL Monocytes # 1.3 (0.0-1.3) K/mcL Eosinophils # 0.0 (0.0-0.6) K/mcL Basophils # 0.0 (0.0-0.2) K/mcL Nucleated RBCs/100 WBC 0.1 H (0) /100 WBC PT 16.1 H (9.4-12.1) Seconds INR 1.4 APTT 26.2 (26.0-36.0) Seconds Sodium (136-145) mEq/L Potassium (3.5-5.1) mEq/L Chloride (98-107) mEq/L Carbon Dioxide (23-29) mEq/L BUN (8-23) mg/dL Creatinine (0.70-1.30) mg/dL Est GFR ( Amer) (> 60) Est GFR (Non-Af Amer) (> 60) BUN/Creatinine Ratio (6-26) Glucose (70-105) mg/dL Calculated Osmolality (280-300) Lactic Acid (0.5-2.2) mmol/L Calcium (8.6-10.3) mg/dL Phosphorus (2.7-4.5) mg/dL Magnesium (1.6-2.6) mg/dL Total Bilirubin (0.3-1.0) mg/dL Direct Bilirubin (0.0-0.2) mg/dL Indirect Bilirubin (0.0-1.2) mg/dL AST (13-39) Units/L ALT (7-52) Units/L Alkaline Phosphatase (34-104) Units/L Troponin I (< 0.04) ng/mL Serum Total Protein (6.4-8.9) g/dL Albumin (3.5-5.7) g/dL Globulin (2.4-3.5) g/dL Albumin/Globulin Ratio (1.1-2.2) Urine Color Dark Yellow (Yellow) Urine Clarity Clear (Clear) Urine pH 5.0 (5.0-8.0) pH Units Ur Specific [place] 1.026 H (1.010-1.025) Urine Protein Trace (Neg-Trace) mg/dL Urine Glucose (UA) Normal (Normal) mg/dL Urine Ketones Negative (Negative) mg/dL Urine Blood Negative (Negative) Urine Nitrite Negative (Negative) Urine Bilirubin Small H (Negative) Urine Urobilinogen Normal (Normal) mg/dL Ur Leukocyte Esterase Negative (Negative) Ur Culture Indicated? NO (NO) 10/29/18 10/29/18 10/29/18 Range/Units 14:06 14:06 17:45 WBC (4.3-11.1) K/mcL RBC (4.19-5.50) M/mcL Hgb (12.9-16.9) g/dL Hct (37.5-50.1) % MCV (83.0-100.0) fL MCH (28.0-33.3) pg MCHC (31.6-35.5) g/dL RDW (11.5-14.5) % Plt Count (140-400) K/mcL MPV (9.4-12.4) fL Immature Gran % (0-4) % Seg Neutrophils % % Lymphocytes % % Monocytes % % Eosinophils % % Basophils % % Neutrophils # (1.6-8.9) K/mcL Lymphocytes # (0.6-4.6) K/mcL Monocytes # (0.0-1.3) K/mcL Eosinophils # (0.0-0.6) K/mcL Basophils # (0.0-0.2) K/mcL Nucleated RBCs/100 WBC (0) /100 WBC PT (9.4-12.1) Seconds INR APTT (26.0-36.0) Seconds Sodium 161 H* (136-145) mEq/L Potassium 4.5 (3.5-5.1) mEq/L Chloride 122 H (98-107) mEq/L Carbon Dioxide 25 (23-29) mEq/L BUN 63 H (8-23) mg/dL Creatinine 1.85 H (0.70-1.30) mg/dL Est GFR ( Amer) 43 L (> 60) Est GFR (Non-Af Amer) 36 L (> 60) BUN/Creatinine Ratio 34 H (6-26) Glucose 149 H (70-105) mg/dL Calculated Osmolality 353 H (280-300) Lactic Acid 2.7 H 1.7 (0.5-2.2) mmol/L Calcium 9.1 (8.6-10.3) mg/dL Phosphorus 4.6 H (2.7-4.5) mg/dL Magnesium 3.0 H (1.6-2.6) mg/dL Total Bilirubin 1.3 H (0.3-1.0) mg/dL Direct Bilirubin 0.4 H (0.0-0.2) mg/dL Indirect Bilirubin 0.9 (0.0-1.2) mg/dL AST 28 (13-39) Units/L ALT 47 (7-52) Units/L Alkaline Phosphatase 71 (34-104) Units/L Troponin I 0.07 H* (< 0.04) ng/mL Serum Total Protein 6.7 (6.4-8.9) g/dL Albumin 3.4 L (3.5-5.7) g/dL Globulin 3.3 (2.4-3.5) g/dL Albumin/Globulin Ratio 1.0 L (1.1-2.2) Urine Color (Yellow) Urine Clarity (Clear) Urine pH (5.0-8.0) pH Units Ur Specific [place] (1.010-1.025) Urine Protein (Neg-Trace) mg/dL Urine Glucose (UA) (Normal) mg/dL Urine Ketones (Negative) mg/dL Urine Blood (Negative) Urine Nitrite (Negative) Urine Bilirubin (Negative) Urine Urobilinogen (Normal) mg/dL Ur Leukocyte Esterase (Negative) Ur Culture Indicated? (NO) - Radiology Data Radiology results reviewed: Yes I reviewed the patient's radiology results. - EKG Data EKG attestation: Yes I reviewed and interpreted this EKG. EKG results narrative: EKG obtained at 1342 on 10/29/2018. Heart rate 124 bpm, NC interval 105, QRS duration 99, QT 324, QTC 466 Sinus tachycardia with low voltage in the precordial leads. No signs of ST segment elevation or depression. No other acute abnormalities other than the sinus tachycardia. Second EKG obtained at 1346 shows atrial fibrillation with rapid ventricular rate 195 bpm. TPA Checklist - LKW: 3-4.5 hrs Add. Warnings/Precautions Patient/family understanding: The patient/family members have been counseled and understood the risk, benefit, and alternatives of treatment.
[2018-10-29 14:10] LABS: Bilirubin,Urine Small (Negative); Blood,Urine Negative (Negative); Clarity,Urine Clear (Clear); Color,Urine Dark Yellow (Yellow); Glucose,Urine (UA) Normal (Normal); Ketones,Urine Negative (Negative); Leukocyte Esterase,Urine Negative (Negative); Nitrite,Urine Negative (Negative); Protein,Urine Trace mg/dL (Neg-Trace); Specific Gravity,Urine 1.026 (1.010-1.025); Urobilinogen,Urine Normal (Normal)
[2018-10-29 14:25] LABS: Basophils % 0.1 %; Hematocrit 49.3 % (37.5-50.1); Hemoglobin 15.5 g/dL (12.9-16.9); Immature Granulocytes % 0.9 % (0-4); Lymphocytes # 1.2 K/mcL (0.6-4.6); Lymphocytes % 5.5 %; Mean Corpuscular HGB Conc 31.4 g/dL (31.6-35.5); Mean Corpuscular Volume 104.9 fL (83.0-100.0); Mean Platelet Volume 12.3 fL (9.4-12.4); Monocytes # 1.3 K/mcL (0.0-1.3); Monocytes % 6.1 %; Neutrophils # 18.1 K/mcL (1.6-8.9); Nucleated Red Blood Cells 0.1 /100 WBC (0); Platelet Count 140 K/mcL (140-400); Red Cell Distribution Width 13.6 % (11.5-14.5); Segmented Neutrophils % 87.4 %; White Blood Count 20.7 K/mcL (4.3-11.1)
[2018-10-29 14:30] LABS: INR 1.4; Prothrombin Time 16.1 Seconds (9.4-12.1)
[2018-10-29 14:33] LABS: Activated Partial Thrombo Time 26.2 Seconds (26.0-36.0)
[2018-10-29 14:45] LABS: Troponin I 0.07 ng/mL (< 0.04)
[2018-10-29 15:03] LABS: Albumin 3.4 g/dL (3.5-5.7); Bilirubin,Direct 0.4 mg/dL (0.0-0.2); Bilirubin,Indirect 0.9 mg/dL (0.0-1.2); Bilirubin,Total 1.3 mg/dL (0.3-1.0); Calcium 9.1 mg/dL (8.6-10.3); Globulin 3.3 g/dL (2.4-3.5); Phosphorous 4.6 mg/dL (2.7-4.5); Potassium 4.5 mEq/L (3.5-5.1); Total Protein 6.7 g/dL (6.4-8.9)
[2018-10-29] MEDS ORDERED: D5% in Water 1,000 ML IVC SCH (15:30)
--- NOTE | 2018-10-29 16:27 | Electrocardiograph Report ---
[place] [id number] Test Date: 2018-10-29 Pat Name: Julian Jaramillo Department: [id number] Room: Gender: M Manager Respiratory: : 1945 Requested By: Milagros Noble Order Number: [id number] Reading MD: Diaz Campbell Measurements Intervals [place] Rate: 195 P: WI: QRS: -36 QRSD: 96 T: 87 QT: 263 QTc: 474 Interpretive Statements Atrial fibrillation with rapid V-rate Left axis deviation Low voltage, extremity and precordial leads Nonspecific T abnormalities, lateral leads Electronically Signed On 10-29-2018 16:25:27 EDT by Diaz Campbell
[2018-10-29] MEDS ORDERED: Cefepime HCl 1,000 MG in 0.9 % Sodium Chloride Mini Bag 100 ML IVPB STA (18:02)
[2018-10-29] MEDS ORDERED: Cefepime HCl 1,000 MG in Water for inj. (sterile) 10 ML IVP ONE (18:06)
[2018-10-29] MEDS ORDERED: Naloxone 0.4 MG/ML INJ IVP PRN (18:52)
[2018-10-29] MEDS ORDERED: Ondansetron 4 MG/2 ML VIAL IVP PRN (18:52)
[2018-10-29] MEDS ORDERED: levoFLOXacin 750 MG/150 ML 750 MG/150 ML BAG IVPB SCH (19:00)
--- NOTE | 2018-10-29 19:27 | Internal Med History&Physical ---
Date of Encounter: 10/29/18 Time of Encounter: 18:20 Internal Medicine - H&P: HPI Chief complaint: dehydration, abnormal labs, and altered mental status Admitted From: Emergency Dept Plans for Post Hospital Care: [facility] History of present illness: Mr. Jaramillo is a 73 year old male who presents to the ER for concerns of dehydration, altered mental status, and abnormal labs. Workup in ER revealed patient to have profound hypernatremia, dehydration, and laboratory data consistent with sepsis. There was no obvious focus for sepsis. He was fluid resuscitated in the ER and then started on maintenance fluids with D5W per recommendations by Dr. Hernández from nephrology. I was contacted by ER staff to admit patient to the ICU even though he was DNR CC. Upon my assessment of the patient ER, patient is unresponsive, profoundly dehydrated, tachycardic, and unable to provide any history whatsoever. and daughter are present. They confirm he has a long-standing history of severe dementia. He had been living at home and cared for by his up until Jun, 2018. He has been in an ECF since then and has been steadily declining. He has never been admitted for dehydration and malnutrition from dementia etiology. This is his first admission as such. He was noted to have decreased appetite and oral intake over the last couple days. As such, he had labs drawn today at his ECF and, as such, he was sent to the ER for evaluation. Workup in ER was noted as above. I discussed CODE STATUS with daughter and and they confirm that he is DNR CC. He is tachycardic with heart rate 150-170s. He is in atrial fibrillation with rapid ventricular response as well. Family wishes to treat conservatively with IV fluids, antibiotics, and trending of his labs. They do wish to me with palliative care tomorrow. If he does not respond or improve, they will likely proceed with full palliative measures. However, for now, they wish to proceed with conservative management as above. Past Med Surg Social Fam HX - Past Medical History Source: old records reviewed, obtained from family Medical history: DVT, dementia, GERD, hypertension Psychiatric history: depression - Past Surgical History Surgical History: orthopedic, other Additional surgical history: shoulder surgery - Social History Smoking Status: Former smoker Smokeless Tobacco Status: No Alcohol use: none Drug use: none Current living situation: ECF Activity Level: Bed bound - Family History Brother Hx Family Neurologic Disorders: Yes (dementia) Internal Medicine - H&P: Meds Aspirin [Lo-Dose Aspirin EC] 81 mg PO DAILY 07/15/18 [History] Multivitamin,Therapeutic [Thera-Tabs] 1 each PO DAILY 07/15/18 [History] ALPRAZolam [Xanax 0.5 MG Tablet] 0.5 mg PO DAILY 10/29/18 [History] Divalproex (12 HR) [Depakote (12 HR)] 500 mg PO BID 10/29/18 [History] Haloperidol 2 mg PO Q8H PRN 10/29/18 [History] Haloperidol Lactate [Haldol] 2 mg IM Q8H PRN 10/29/18 [History] Ipratropium/Albuterol Neb [Duoneb] 3 ml IH Q6HR 10/29/18 [History] Loperamide HCl [Imodium A-D] 2 mg PO PRN PRN 10/29/18 [History] Magnesium Hydroxide [Milk of Magnesia] 30 ml PO Q72H PRN 10/29/18 [History] Pantoprazole Sodium [Protonix] 40 mg PO DAILY 10/29/18 [History] Sertraline [Zoloft] 50 mg PO DAILY 10/29/18 [History] Allergy/AdvReac Type Severity Reaction Status Date / Time Penicillins Allergy Difficulty Verified 07/15/18 19:49 Breathing ROS unobtainable: due to mental status - Constitutional Vitals: Temp Pulse Resp BP Pulse Ox 99.6 F 166 26 119/80 95 10/29/18 13:37 10/29/18 18:48 10/29/18 18:48 10/29/18 18:48 10/29/18 18:48 General appearance: Present: cachectic Exam: somnolent; severely dehydrated; responds somewhat to pain - Head Head exam: Present: atraumatic, normal inspection - Eye Eye exam: Present: conjuntiva pink. Absent: scleral icterus - ENT ENT exam: Present: mucous membranes dry, normal exam, normal oropharynx - Neck Neck exam general surgery: Present: full ROM, supple, trachea midline. Absent: tenderness, nuchal rigidity, thyromegaly - Respiratory Respiratory exam: Present: CTAB, tachypnea. Absent: accessory muscle use, chest wall tenderness, rales, rhonchi, wheezes - Cardiovascular Cardiovascular exam: Present: irregular rhythm, +S1, +S2, systolic murmur, tachycardia. Absent: diastolic murmur - GI/Abdominal GI/Abdominal exam: Present: hypoactive bowel sounds, soft. Absent: guarding, hepatomegaly, mass, rebound, splenomegaly, tenderness - Additional comments: Ba[place] in place with concentrated urine - Extremities Exam Extremities exam: Present: warm, radial pulses palpable and symmetrical. Absent: calf tenderness, joint swelling, normal capillary refill (roughly 4 seconds), pedal edema, tenderness - Neurological Exam Neurological exam: Absent: alert Additional comments: responds only to pain; per , he normally does not respond to anyone and s leeps most of the time - Psychiatric Additional comments: unable to assess - Skin Skin exam: Present: dry, warm. Absent: rash Additional comments: + skin tenting Internal Med - H&P Results - Labs CBC & Chem 7: 10/29/18 14:06 10/29/18 14:06 Labs: Short CBC 10/29/18 Range/Units 14:06 WBC 20.7 H (4.3-11.1) K/mcL Hgb 15.5 (12.9-16.9) g/dL Hct 49.3 (37.5-50.1) % Plt Count 140 (140-400) K/mcL Neutrophils # 18.1 H (1.6-8.9) K/mcL BMP 10/29/18 14:06 Sodium 161 H* Potassium 4.5 Chloride 122 H Carbon Dioxide 25 BUN 63 H Creatinine 1.85 H Glucose 149 H Calcium 9.1 Cardiac Enzymes 10/29/18 Range/Units 14:06 Troponin I 0.07 H* (< 0.04) ng/mL Liver Function 10/29/18 Range/Units 14:06 Total Bilirubin 1.3 H (0.3-1.0) mg/dL Direct Bilirubin 0.4 H (0.0-0.2) mg/dL AST 28 (13-39) Units/L ALT 47 (7-52) Units/L Alkaline Phosphatase 71 (34-104) Units/L Albumin 3.4 L (3.5-5.7) g/dL Urine 10/29/18 Range/Units 13:57 Urine Color Dark Yellow (Yellow) Urine Clarity Clear (Clear) Urine pH 5.0 (5.0-8.0) pH Units Ur Specific [place] 1.026 H (1.010-1.025) Urine Protein Trace (Neg-Trace) mg/dL Urine Glucose (UA) Normal (Normal) mg/dL - EKG Data -: EKG Interpreted by Myself - EKG Data Prior EKG available for review: no EKG comments: 10/29/18 19:31 atrial fib/RVR - Impressions ITS Impressions Chest X-Ray 10/29/18 13:41 IMPRESSION: No acute process. Resolution of previously seen left pleural effusion and left basilar opacity. D/ / 10/29/2018 15:00:00 Dallas Reynolds MD / susi Interpreting Provider: Dallas Reynolds MD Head CT 10/29/18 13:41 IMPRESSION: 1. No convincing acute intracranial abnormality. 2. 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 3. Global parenchymal volume loss with chronic microvascular ischemic changes. 4. Atherosclerosis. D/ / Shen Baeza MD / Shen Baeza MD Interpreting Provider: Shen Baeza MD - Diagnostic Studies Chest x-ray Status: image reviewed by me (negative) - Assessment and Plan (1) Dehydration with hypernatremia Current Visit: Yes Status: Acute Assessment and plan: 1. S/P fluid resuscitation in ER. 2. Continued MIV with D5W per nephrology. 3. Monitor serial electrolytes q4H. 4. Nephrology consulted. (2) Atrial fibrillation with RVR Current Visit: Yes Status: Acute Assessment and plan: 1. On Cardizem drip. 2. Will add IV Lopressor as necessary. 3. Trend troponins, EKG's. (3) SIRS (systemic inflammatory response syndrome) Current Visit: Yes Status: Acute Assessment and plan: 1. I do not suspect sepsis and believe the response is due to severe dehydration and Atrial Fib/RVR. 2. Nonetheless, patient fluid resuscitated in ER. 3. Trend lactate, repeat is normal. 4. MIV as above. 5. Cultures drawn. 6. Continue antibiotics, monitor clinically, and follow cultures. (4) Dementia Current Visit: Yes Status: Chronic Assessment and plan: 1. Patient has had longstanding dementia with progressive decline. 2. confirms patient's living will and CODE STATUS as DNR CC. 3. Consult palliative care for goals of care. Qualifiers: Dementia type: unspecified type Dementia behavioral disturbance: with behavioral disturbance Qualified Code(s): F03.91 - Unspecified dementia with behavioral disturbance (5) DVT prophylaxis Current Visit: Yes Status: Acute Assessment and plan: 1. Heparin SQ.
[2018-10-29] MEDS: D5% in Water 1,000 ML IVC SCH (20:30)
[2018-10-29] MEDS: *HR* Metoprolol 5 MG/5 ML VIAL IVP PRN (20:35)
[2018-10-29 23:14] LABS: Calcium 7.8 mg/dL (8.6-10.3); Magnesium 2.6 mg/dL (1.6-2.6); Potassium 4.2 mEq/L (3.5-5.1)
[2018-10-30] MEDS: D5% in Water 1,000 ML IVC SCH ×4 (00:12→16:51)
[2018-10-30 04:01] LABS: Basophils % 0.1 %; Eosinophils % 0.2 %; Hematocrit 41.7 % (37.5-50.1); Immature Granulocytes % 0.7 % (0-4); Lymphocytes # 1.1 K/mcL (0.6-4.6); Mean Corpuscular HGB Conc 30.9 g/dL (31.6-35.5); Mean Corpuscular Hemoglobin 33.2 pg (28.0-33.3); Mean Corpuscular Volume 107.5 fL (83.0-100.0); Mean Platelet Volume 12.2 fL (9.4-12.4); Monocytes % 5.2 %; Neutrophils # 16.2 K/mcL (1.6-8.9); Platelet Count 105 K/mcL (140-400); Red Blood Count 3.88 M/mcL (4.19-5.50); Red Cell Distribution Width 13.4 % (11.5-14.5); Segmented Neutrophils % 87.8 %; White Blood Count 18.5 K/mcL (4.3-11.1)
[2018-10-30 04:11] LABS: INR 1.7; Prothrombin Time 18.8 Seconds (9.4-12.1)
[2018-10-30 04:13] LABS: Activated Partial Thrombo Time 25.9 Seconds (26.0-36.0)
[2018-10-30 04:24] LABS: Hemoglobin 12.9 g/dL (12.9-16.9)
[2018-10-30 04:25] LABS: Albumin 2.8 g/dL (3.5-5.7); Bilirubin,Total 1.1 mg/dL (0.3-1.0); Calcium 7.7 mg/dL (8.6-10.3); Globulin 2.9 g/dL (2.4-3.5); Magnesium 2.6 mg/dL (1.6-2.6); Phosphorous 3.2 mg/dL (2.7-4.5); Potassium 4.1 mEq/L (3.5-5.1); Total Protein 5.7 g/dL (6.4-8.9)
[2018-10-30] MEDS: *HR* Metoprolol 5 MG/5 ML VIAL IVP PRN (05:54)
[2018-10-30] MEDS: *HR* Heparin 5,000 UNIT/ML VIAL SQ SCH ×2 (05:55→16:48)
[2018-10-30 07:31] LABS: Calcium 7.9 mg/dL (8.6-10.3); Magnesium 2.6 mg/dL (1.6-2.6); Potassium 4.2 mEq/L (3.5-5.1)
[2018-10-30] MEDS ORDERED: Aminoglycoside Consult 1 EACH MC ONE (08:11)
--- NOTE | 2018-10-30 08:50 | Electrocardiograph Report ---
[facility] [employer] [facility] Test Date: 2018-10-29 Pat Name: Julian Jaramillo Department: [id number] Room: 10 Gender: M [id number] Technical Lead: : 1945 Requested By: Andrew Kline Order Number: [id number] Reading MD: Darin Alicea Measurements Intervals [place] Rate: 124 P: 42 MN: 105 QRS: -27 QRSD: 99 T: 57 QT: 324 QTc: 466 Interpretive Statements Sinus tachycardia Borderline left axis deviation Low voltage, precordial leads Minimal ST depression, anterior leads Electronically Signed On 10-30-2018 8:48:39 EDT by Darin Alicea
--- NOTE | 2018-10-30 11:24 | Palliative - Consult Note ---
Date of Encounter: 10/30/18 Time of Encounter: 09:30 - Assessment and Plan (1) Advance care planning Current Visit: Yes Status: Acute Assessment and plan: [id number]: Met with pt's family Linda, and 2 daughters, along with pc resident Dr. Evans, top lift compressor Umang and pt's nurse Irineo. Discussed current medical condition, trajectory of illness, treatment options and overall poor prognosis. Per family, Julian watched 2 of his brothers from Alzeimer's disease, and he had given instructions to avoid prolonging his dying process. However, Julian was up in a wheelchair and had a walk with his family 5 days ago, before the cu rent episode, so family is still hopeful that he may improve, they would like to wait a couple of days before making any changes. Family not yet ready for hospice, but asking for conservative management with accent on hospice. Plan: -continue IVF for hypernatremia and dehydration, with nephrology support -continue antibiotics, no source of infection was found, will deescalate to Levofloxacin only, to limit needs for blood work. -treat conservatively for 2 more days. If pt worsens, will not escalate care, but transition to full cmfort care -transfer pt out of ICU to a palliative care bed, under hospitalist team, with palliative care support. I spent 45 minutes total time with patient, family member(s) and/or surrogate discussing advance care planning to include explanation/discussion of advanced directives. Please note this time was additional time spent with patient, family and/or surrogate not involving active management of patient's conditions or treatments. (2) Altered mental status Current Visit: Yes Status: Acute Assessment and plan: Patient AMS may be due to metabolic encephalopathy from dehydration, along with worsening dementia. Will continue IVF and daily labs. If mental status fails to improve when labs are corrected, will transition to full comfort care. Qualifiers: Altered mental status type: somnolence Qualified Code(s): R40.0 - Somnolence (3) Atrial fibrillation with RVR Current Visit: Yes Status: Acute Assessment and plan: Metoprolol IV prn (4) Dementia Current Visit: Yes Status: Chronic Qualifiers: Dementia type: unspecified type Dementia behavioral disturbance: with behavioral disturbance Qualified Code(s): F03.91 - Unspecified dementia with behavioral disturbance (5) Dehydration with hypernatremia Current Visit: Yes Status: Acute Assessment and plan: gentle hydration Nephrology consult appreciated. will continue until labs are corrected, unless pt worsens clinically. Palliative-CN HPI - Data of Consult Patient: new to practice Consult date: 10/29/18 Requesting Physician: Andrew Kline MD Primary Care Provider: Darin Alicea Jr, MD - Consult Narrative Palliative Care/Comfort Measures: Palliative care Reason for consult: end od treatment goals History of present illness: Mr. Jaramillo is a 73 year old male ho presents to the ER for concerns of dehydration, altered mental status, and abnormal labs. Workup in ER revealed patient to have profound hypernatremia, dehydration, and laboratory data consis tent with sepsis. Patient is a DC resident and has a DNRCC status. However, the requested pt to be admitted and treated conservatively. Pt was admitted to ICU and started with rehydration and ABX Palliative care consult to define goals of care. At the time of exam, pt was lethargic, opening eyes transiently to loud noise, not following commands or tracking. Appeared in no acute distress. Family at the bedside. CC: Andrew Kline MD - Time Spent with Patient Time: Total time spent is greater than 50% in coordination of care (as documented) at patient's floor/unit and/or counseling patient: 80 minutes Time with patient: 75 minutes Past Med Surg Social Fam HX - Past Medical History Medical history: DVT, dementia, GERD, hypertension Psychiatric history: depression - Past Surgical History Surgical History: orthopedic, other Additional surgical history: shoulder surgery - Social History Smoking Status: Former smoker Smokeless Tobacco Status: No Alcohol use: none Drug use: none - Family History Brother Hx Family Neurologic Disorders: Yes (dementia) Medications and Allergies Aspirin [Lo-Dose Aspirin EC] 81 mg PO DAILY 07/15/18 [History] Multivitamin,Therapeutic [Thera-Tabs] 1 each PO DAILY 07/15/18 [History] ALPRAZolam [Xanax 0.5 MG Tablet] 0.5 mg PO DAILY 10/29/18 [History] Divalproex (12 HR) [Depakote (12 HR)] 500 mg PO BID 10/29/18 [History] Haloperidol 2 mg PO Q8H PRN 10/29/18 [History] Haloperidol Lactate [Haldol] 2 mg IM Q8H PRN 10/29/18 [History] Ipratropium/Albuterol Neb [Duoneb] 3 ml IH Q6HR 10/29/18 [History] Loperamide HCl [Imodium A-D] 2 mg PO PRN PRN 10/29/18 [History] Magnesium Hydroxide [Milk of Magnesia] 30 ml PO Q72H PRN 10/29/18 [History] Pantoprazole Sodium [Protonix] 40 mg PO DAILY 10/29/18 [History] Sertraline [Zoloft] 50 mg PO DAILY 10/29/18 [History] Allergy/AdvReac Type Severity Reaction Status Date / Time Penicillins Allergy Difficulty Verified 07/15/18 19:49 Breathing ROS unobtainable: due to mental status Palliative Care-Exam - Constitutional Vitals: Temp Pulse Resp BP Pulse Ox 96.7 F L 127 24 109/77 96 10/30/18 08:00 10/30/18 10:00 10/30/18 10:00 10/30/18 10:00 10/30/18 10:00 Exam: Vitals reviewed General appearance: alert, oriented x3, appears comfortable Eyes: nonicteric, EOMI EENT: oropharynx dry Chest: bilateral: normal breath sounds, normal effort Cardiovascular: irregular rate and rhythm, tachycardia, no murmur, rub, gallop Gastrointestinal: soft, non-tender, non-distended Integumentary: normal, intact Extremities: no cyanosis, no edema, no clubbing, normal capillary refill Musculoskeletal: no deformities Neurologic: lethargic, opens eyes transiently to strong verbal stimuli, does not interact with surroundings. Psych: mood appropriate, affect normal Internal Medicine - CN: Reslt - Labs CBC & Chem 7: 10/30/18 03:40 10/30/18 06:57 Labs: Short CBC 10/29/18 10/30/18 Range/Units 14:06 03:40 WBC 20.7 H 18.5 H (4.3-11.1) K/mcL Hgb 15.5 12.9 D (12.9-16.9) g/dL Hct 49.3 41.7 (37.5-50.1) % Plt Count 140 105 L (140-400) K/mcL Neutrophils # 18.1 H 16.2 H (1.6-8.9) K/mcL BMP 10/29/18 10/29/18 10/30/18 14:06 22:43 03:40 Sodium 161 H* 155 H 154 H Potassium 4.5 4.2 4.1 Chloride 122 H 124 H 122 H Carbon Dioxide 25 22 L 22 L BUN 63 H 56 H 55 H Creatinine 1.85 H 1.52 H 1.46 H Glucose 149 H 171 H 150 H Calcium 9.1 7.8 L 7.7 L 10/30/18 06:57 Sodium 154 H Potassium 4.2 Chloride 119 H Carbon Dioxide 25 BUN 56 H Creatinine 1.43 H Glucose 166 H Calcium 7.9 L Cardiac Enzymes 10/29/18 10/29/18 10/30/18 Range/Units 14:06 19:51 01:19 Troponin I 0.07 H* 0.06 H* 0.07 H* (< 0.04) ng/mL 10/30/18 Range/Units 06:57 Troponin I 0.04 H* (< 0.04) ng/mL Liver Function 10/29/18 10/30/18 Range/Units 14:06 03:40 Total Bilirubin 1.3 H 1.1 H (0.3-1.0) mg/dL Direct Bilirubin 0.4 H (0.0-0.2) mg/dL AST 28 19 (13-39) Units/L ALT 47 34 (7-52) Units/L Alkaline Phosphatase 71 52 (34-104) Units/L Albumin 3.4 L 2.8 L (3.5-5.7) g/dL Urine 10/29/18 Range/Units 13:57 Urine Color Dark Yellow (Yellow) Urine Clarity Clear (Clear) Urine pH 5.0 (5.0-8.0) pH Units Ur Specific [place] 1.026 H (1.010-1.025) Urine Protein Trace (Neg-Trace) mg/dL Urine Glucose (UA) Normal (Normal) mg/dL - ABG Interpretation ABG results: PT/INR, D-dimer PT 18.8 Seconds (9.4-12.1) H 10/30/18 03:40 - Impressions Impressions Chest X-Ray 10/29/18 13:41 IMPRESSION: No acute process. Resolution of previously seen left pleural effusion and left basilar opacity. D/ / 10/29/2018 15:00:00 Dallas Reynolds MD / susi Interpreting Provider: Dallas Reynolds MD Head CT 10/29/18 13:41 IMPRESSION: 1. No convincing acute intracranial abnormality. 2. 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 3. Global parenchymal volume loss with chronic microvascular ischemic changes. 4. Atherosclerosis. D/ / Shen Baeza MD / Shen Baeza MD Interpreting Provider: Shen Baeza MD Consult Discharge Plan - Plan Referrals: Darin Alicea Jr, MD [Primary Care Provider] - Palliative Quality Palliative Quality: Screen for Code Status: Yes, Screen for Goals of Care: Yes, Screen for Pain: Yes, If Pain Regimen Started, Initiate Bowel Regimen: Yes, Screen for Nausea/Vomitting: Yes Code Status: 10/29/18 18:52 Resuscitation Status: Active [RES] Routine Comment: Resuscitation Status: DNR-Comfort Care Palliative Scale - Palliative Performance Scale How ambulatory is this patient?: Mainly in bed What is patient's level of activity and evidence of disease?: Unable to do most activity, Extensive disease How much self-care assistance does patient require?: Mainly assistance How much oral intake does the patient have?: Minimal to sips What is this patient's level of consciousness?: Full or drowsy with or without confusion Palliative Performance Score: 40 %
--- NOTE | 2018-10-30 12:03 | Internal Med Progress Note ---
Hospitalist Progress Note - Encounter Date of Encounter: 10/30/18 Time of Encounter: 08:30 - Subjective Interval History: Patient appears better hydrated this morning but remains unresponsive other than opening his eyes and moving his arms somewhat purposely. He is nonverbal. I met with palliative care and discussed the family meeting results and plan of care. I agree with their plan to continue conservative management with palliative support. Patient will be transferred out of the ICU for ongoing conservative measurements. Antibiotics have been de-escalated, and we will continue IV fluid hydration. - Exam Vitals: Temp Pulse Resp BP Pulse Ox 97.9 F 127 24 109/77 96 10/30/18 11:24 10/30/18 10:00 10/30/18 10:00 10/30/18 10:00 10/30/18 10:00 Exam: General: Better hydrated but still dry; opens eyes, moves arms, non-verbal HEENT: dry mucosa, no icterus, neck supple Chest: CTA B, NO WRR, IRR/IRR, grade 1 murmur. Abdomen: soft, scaphoid, benign, no HSMG, + BS Ext: poor turgor, no calf pain, limited ROM legs Neuro: as above, moves arms and legs somewhat purposely Skin: poor but improved turgor, dry, no rash - Assessment and Plan (1) Dehydration with hypernatremia Current Visit: Yes Status: Acute Assessment and Plan: 1. Continue MIV with nephrology support. 2. Decrease frequency of BMP's but continue to monitor. (2) Atrial fibrillation with RVR Current Visit: Yes Status: Acute Assessment and Plan: 1. Cardizem drip stopped per Palliative -- I agree. 2. Will use PRN BB. 3. Monitor clinically. (3) SIRS (systemic inflammatory response syndrome) Current Visit: Yes Status: Acute Assessment and Plan: 1. Do not suspect sepsis. 2. Likely due to profound dehydration. 3. De-escalate antibiotics, follow cultures. (4) Dementia Current Visit: Yes Status: Chronic Assessment and Plan: 1. Per palliative consultation. (5) DVT prophylaxis Current Visit: Yes Status: Acute Assessment and Plan: 1. Heparin SQ. - Time Spent with Patient Total time spent is greater than 50% in coordination of care (as documented) at patient's floor/unit and/or counseling patient: 25 - 35 minutes Plan of Care Discussed with: other (MDR team and Palliative team) Internal Medicine: Result - Labs CBC & Chem 7: 10/30/18 03:40 10/30/18 06:57 Labs: Short CBC 10/29/18 10/30/18 Range/Units 14:06 03:40 WBC 20.7 H 18.5 H (4.3-11.1) K/mcL Hgb 15.5 12.9 D (12.9-16.9) g/dL Hct 49.3 41.7 (37.5-50.1) % Plt Count 140 105 L (140-400) K/mcL Neutrophils # 18.1 H 16.2 H (1.6-8.9) K/mcL BMP 10/29/18 10/29/18 10/30/18 14:06 22:43 03:40 Sodium 161 H* 155 H 154 H Potassium 4.5 4.2 4.1 Chloride 122 H 124 H 122 H Carbon Dioxide 25 22 L 22 L BUN 63 H 56 H 55 H Creatinine 1.85 H 1.52 H 1.46 H Glucose 149 H 171 H 150 H Calcium 9.1 7.8 L 7.7 L 10/30/18 06:57 Sodium 154 H Potassium 4.2 Chloride 119 H Carbon Dioxide 25 BUN 56 H Creatinine 1.43 H Glucose 166 H Calcium 7.9 L Cardiac Enzymes 10/29/18 10/29/18 10/30/18 Range/Units 14:06 19:51 01:19 Troponin I 0.07 H* 0.06 H* 0.07 H* (< 0.04) ng/mL 10/30/18 Range/Units 06:57 Troponin I 0.04 H* (< 0.04) ng/mL Liver Function 10/29/18 10/30/18 Range/Units 14:06 03:40 Total Bilirubin 1.3 H 1.1 H (0.3-1.0) mg/dL Direct Bilirubin 0.4 H (0.0-0.2) mg/dL AST 28 19 (13-39) Units/L ALT 47 34 (7-52) Units/L Alkaline Phosphatase 71 52 (34-104) Units/L Albumin 3.4 L 2.8 L (3.5-5.7) g/dL Urine 10/29/18 Range/Units 13:57 Urine Color Dark Yellow (Yellow) Urine Clarity Clear (Clear) Urine pH 5.0 (5.0-8.0) pH Units Ur Specific [place] 1.026 H (1.010-1.025) Urine Protein Trace (Neg-Trace) mg/dL Urine Glucose (UA) Normal (Normal) mg/dL - ABG Interpretation ABG results: PT/INR, D-dimer PT 18.8 Seconds (9.4-12.1) H 10/30/18 03:40 - Impressions Impressions Chest X-Ray 10/29/18 13:41 IMPRESSION: No acute process. Resolution of previously seen left pleural effusion and left basilar opacity. D/ / 10/29/2018 15:00:00 Dallas Reynolds MD / susi Interpreting Provider: Dallas Reynolds MD Head CT 10/29/18 13:41 IMPRESSION: 1. No convincing acute intracranial abnormality. 2. 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 3. Global parenchymal volume loss with chronic microvascular ischemic changes. 4. Atherosclerosis. D/ / Shen Baeza MD / Shen Baeza MD Interpreting Provider: Shen Baeza MD Consult Discharge Plan - Plan Referrals: Darin Alicea Jr, MD [Primary Care Provider] - (4) Dementia Qualifiers: Dementia type: unspecified type Dementia behavioral disturbance: with behavioral disturbance Qualified Code(s): F03.91 - Unspecified dementia with behavioral disturbance
--- NOTE | 2018-10-30 13:27 | Nephrology Consult Note ---
Date of Encounter: 10/30/18 Time of Encounter: 09:00 Assessment and Plan (1) Hypernatremia Current Visit: Yes Status: Acute Fluid deficit noted in this pt with AMS on known dementia. Agree with the D5W but would slow the rate to 100mL/hr to avoid over correcting. Typically I would add PNa lab checks approx q4hr but since he has had a nice family meeting with Palliative Care and is now DNR Comfort Care, then I would not recommend disturbing him with the pain of frequent lab draws. I will place labs in the a.m., to ensure that his sodium has improved. If the labs are canceled given that he is listed as Comfort Care, this would also be fine. Thank you for consult in the [facility]. (2) Altered mental status Current Visit: Yes Status: Acute As per primary Qualifiers: Altered mental status type: somnolence Qualified Code(s): R40.0 - Somnolence (3) Dementia Current Visit: Yes Status: Chronic As per primary Qualifiers: Dementia type: unspecified type Dementia behavioral disturbance: with behavioral disturbance Qualified Code(s): F03.91 - Unspecified dementia with behavioral disturbance (4) CKD (chronic kidney disease), stage III Current Visit: Yes Status: Chronic He has chronic kidney disease stage III based upon GFR records. He has no indications for ASSURANCE MANAGER INSURANCE at this time. History of Present Illness - Reason for Consult Consult date: 10/30/18 hypernatremia Requesting physician: Andrew Kline - Chief Complaint Hypernatremia - History of Present Illness Patient is a 73-year-old male with a past medical history of dementia who presented with hypernatremia. He was admitted overnight to the ICU and nephrology was consulted. My colleague Dr. Hernández initially received pages last night, and I was on-call today. No family members are present during my Interview and Exam. I reviewed his chart and see that Palliative Care was consulted. The patient is unable to give me any history, which limits the subjective history including history of present illness, review of systems, and family history. Past Med Surg Social Fam HX - Past Medical History Medical history: DVT, dementia, GERD, hypertension Psychiatric history: depression - Past Surgical History Surgical History: orthopedic, other Additional surgical history: shoulder surgery - Social History Smoking Status: Former smoker Smokeless Tobacco Status: No Alcohol use: none Drug use: none - Family History Brother Hx Family Neurologic Disorders: Yes (dementia) Medications and Allergies Aspirin [Lo-Dose Aspirin EC] 81 mg PO DAILY 07/15/18 [History] Multivitamin,Therapeutic [Thera-Tabs] 1 each PO DAILY 07/15/18 [History] ALPRAZolam [Xanax 0.5 MG Tablet] 0.5 mg PO DAILY 10/29/18 [History] Divalproex (12 HR) [Depakote (12 HR)] 500 mg PO BID 10/29/18 [History] Haloperidol 2 mg PO Q8H PRN 10/29/18 [History] Haloperidol Lactate [Haldol] 2 mg IM Q8H PRN 10/29/18 [History] Ipratropium/Albuterol Neb [Duoneb] 3 ml IH Q6HR 10/29/18 [History] Loperamide HCl [Imodium A-D] 2 mg PO PRN PRN 10/29/18 [History] Magnesium Hydroxide [Milk of Magnesia] 30 ml PO Q72H PRN 10/29/18 [History] Pantoprazole Sodium [Protonix] 40 mg PO DAILY 10/29/18 [History] Sertraline [Zoloft] 50 mg PO DAILY 10/29/18 [History] Allergy/AdvReac Type Severity Reaction Status Date / Time Penicillins Allergy Difficulty Verified 07/15/18 19:49 Breathing Review of Systems ROS unobtainable: due to mental status Exam - Vital Signs Vital signs: Initial Vital Signs Temp Pulse Resp BP Pulse Ox 99.6 F 201 20 142/111 97 10/29/18 13:37 10/29/18 13:37 10/29/18 13:37 10/29/18 13:37 10/29/18 13:37 Vital Signs - Last 8 Hours Temp Pulse Resp BP Pulse Ox 10/30/18 11:24 97.9 F 10/30/18 10:00 127 24 109/77 96 10/30/18 09:00 124 22 104/80 93 10/30/18 08:00 96.7 F L 10/30/18 07:00 106 24 109/76 94 10/30/18 06:00 123 20 117/78 95 Intake and Output 10/29/18 10/30/18 10/30/18 23:59 07:59 15:59 Intake Total 430.0 / 1430.0 3475 / 3975 500 / 3975 Output Total 300 / 300 300 / 700 400 / 700 Balance 130.0 / 1130.0 3175 / 3275 100 / 3275 Intake: IV Fluids 430.0 / 1430.0 3475 / 3975 500 / 3975 Dextrose 5% 1,000 ML @ 125 mls/ 3000 / 3425 425 / 3425 hr IVC .Q8H [facility] Rx#:[id number] Cardizem 125 MG In 0.9 % Sodium 20.0 / 20.0 225 / 300 75 / 300 Chloride 100 ML @ 5 MG/HR 5 mls/hr IVC [facility] Rx#: [id number] Maxipime 1,000 MG In Water for 10 inj. (sterile) 10 ML @ 300 mls/ hr IVP ONCE ONE Rx#:[id number] Vancocin 1,000 MG In 0.9 % 250 / 250 250 / 250 Sodium Chloride 250 ML @ 166. 667 mls/hr IVPB Q24H [facility] Rx#: [id number] Levaquin Premix 750mg/150 mL 150 / 150 750 mg In 150 ml @ 100 mls/hr IVPB Q48H [facility] Rx#:[id number] Output: Urine 0 / 0 Catheter 300 / 300 300 / 700 400 / 700 Other: Weight 67.4 kg 67.4 kg Blood Glucose* 147 140 198 Patient Weight 10/30/18 23:59 Weight 67.4 kg - General Appearance General appearance: cachectic, chronically ill, fatigue, frail EENT: mucous membranes dry Neck: supple Respiratory: clear Cardiology: no edema, normal S1, normal S2 Gastrointestinal: normoactive bowel sounds, no guarding Integumentary: warm and dry Neurologic: confused, disoriented Musculoskeletal: no cyanosis, no clubbing Results - Lab Results 10/30/18 03:40 10/30/18 06:57 Most recent lab results 10/30/18 10/30/18 03:40 06:57 Calcium 7.7 L 7.9 L Phosphorus 3.2 Magnesium 2.6 2.6 Consult Discharge Plan - Plan Referrals: Darin Alicea Jr, MD [Primary Care Provider] -
[2018-10-30] MEDS: *HR* LORazepam 2 MG/ML VIAL IVP PRN (19:25)
[2018-10-31] MEDS: D5% in Water 1,000 ML IVC SCH (03:22)
[2018-10-31 04:00] LABS: BUN/Creatinine Ratio 33 (6-26); Blood Urea Nitrogen 41 mg/dL (8-23); Calcium 7.7 mg/dL (8.6-10.3); Carbon Dioxide 21 mEq/L (23-29); Chloride 116 mEq/L (98-107); Glucose 123 mg/dL (70-105); Magnesium 2.3 mg/dL (1.6-2.6); Osmolality,Calculated 315 (280-300); Potassium 3.8 mEq/L (3.5-5.1); Sodium 147 mEq/L (136-145); eGFR For African Americans > 60 (> 60); eGFR For Non-African Americans 56 (> 60)
[2018-10-31] MEDS: *HR* Heparin 5,000 UNIT/ML VIAL SQ SCH (05:37)
--- NOTE | 2018-10-31 07:27 | Internal Med Progress Note ---
<AnaAlicia M - Last Filed: 10/31/18 12:39> Hospitalist Progress Note - Encounter Date of Encounter: 10/31/18 - Exam Vitals: Temp Pulse Resp BP Pulse Ox 98.6 F 95 12 107/75 90 10/31/18 05:32 10/31/18 05:32 10/31/18 05:32 10/31/18 05:32 10/31/18 05:32 - Time Spent with Patient Total time spent is greater than 50% in coordination of care (as documented) at patient's floor/unit and/or counseling patient: Internal Medicine: Result - Labs CBC & Chem 7: 10/30/18 03:40 10/31/18 02:55 Labs: BMP 10/31/18 02:55 Sodium 147 H Potassium 3.8 Chloride 116 H Carbon Dioxide 21 L BUN 41 H Creatinine 1.25 Glucose 123 H Calcium 7.7 L - ABG Interpretation ABG results: PT/INR, D-dimer PT 18.8 Seconds (9.4-12.1) H 10/30/18 03:40 - Impressions Impressions Chest X-Ray 10/29/18 13:41 IMPRESSION: No acute process. Resolution of previously seen left pleural effusion and left basilar opacity. D/ / 10/29/2018 15:00:00 Dallas Reynolds MD / susi Interpreting Provider: Dallas Reynolds MD Consult Discharge Plan - Plan Referrals: Darin Alicea Jr, MD [Primary Care Provider] - - Attending Attestation I examined this patient and my medical decision-making was reviewed with the Resident Physician Dr Goodson. I agree with the documented findings, disposition and treatment plan as described except to the extent set forth below. Mr Bunn was admitted with hypernatremia, unresponsiveness and severe dementia he has transferred our of ICU to floor with comfort care focused treatment remains unresponsive, no family at bedside, RN informed me no family in as of yet. He does not respond to painful stimuli, he has irregular breathing pattern with notable secretions. no further hpi or ros obtainable gen- unresponsive, appears stated age cv- reg rate and rhythm, normal s1,s2, no le edema lungs- irregular breathing pattern, can appreciate secretions with audible sounds from upper airway, lungs are otherwise clear ant/lat esteban abd- soft, , non distended, no guard or grimace to palpation neuro- unresponsive to painful stimuli Hypernatremia 2/2 dehydration 2/2 severe dementia- improved and nearing resolution- IVF as per nephro D5W, given his resp status today will hold fluids while awaiting his presenting to hospital, spacing BMP checks for comfort, no improvement in mentation w improvement in Na, appreciate palliative care following for end of life care, add scopalamine patch SIRS without evidence of infxn 2/2 dehydration- cont levaquin as per family request, cxs remain ngtd Afib w RVR resolved- prn BB for comfort further dx and plan as noted by resident updated by his RN and instructed to come into hospital as his breathing is becoming agonal. update: pt family to bedside. would like to focus now on comfort and verbalized understanding to team that he will not recover. Want him to be comfortable. Agreeable to sx treatment including morphine. -scopalamine patch, prn ativan 0.5 mg q 4h for anxiety, prn morphine 2mg q 4 h for dyspnea, prn zofran. Will monitor effect of low dosing and uptitrate should he be visibly uncomfortable. Stop IVFs and IV abx to preserve respiratory comfort. Prn BB should HR elevate. <Marky Goodson - Last Filed: 10/31/18 13:06> Hospitalist Progress Note - Encounter Date of Encounter: 10/31/18 Time of Encounter: 07:27 - Subjective Interval History: No acute changes overnight. Patient not responding to verbal stimuli, minimally responsive to noxious stimuli. Family not present in the room on evaluation, will confer with family this afternoon regarding plan of care. On afternoon evaluation patient's and daughter present. We discussed poor prognosis. Family verbalized understanding patient is unlikely to improve. They requested comfort care measures. - Exam Vitals: Temp Pulse Resp BP Pulse Ox 98.6 F 95 12 107/75 90 10/31/18 05:32 10/31/18 05:32 10/31/18 05:32 10/31/18 05:32 10/31/18 05:32 Exam: General: Minimally responsive to noxious stimuli, withdraws HEENT: dry mucosa, no icterus, neck supple Chest: Minimal rales diffusely, gurgling and agonal breathing, no wheeze or rhonchi, tachycardic rate and irregular rhythm Abdomen: soft, scaphoid, benign, positive bowel sounds Ext: poor turgor, spontaneously moves all extremities to noxious stimuli Neuro: Minimally responsive to noxious stimuli, ciliary reflex intact, pupils restricted to light Skin: Mildly diaphoretic, warm - Assessment and Plan (1) Advance care planning Current Visit: Yes Status: Acute Assessment and Plan: Patient exhibiting poor clinical status with poor prognosis anticipated Goals of care discussion had with family, they requested comfort care measures We have discontinued fluids and antibiotics and initiated when necessary mor phine for dyspnea Patient also has when necessary Ativan and Zofran as well as a scopolamine patch Candy Depositing Machine Operator services were also offered, we will continue to check in with patient and family. (2) Altered mental status Current Visit: Yes Status: Acute Assessment and Plan: Per record review patient was apparently spontaneously responsive yesterday On evaluation today the patient is minimally responsive to noxious stimuli Patient is SIRS criteria on admission but no infectious source has been found and he is afebrile, patient has been receiving empiric Levaquin Levaquin Patient was dehydrated and hypernatremic on presentation, this has improved but not resolved and could be potential source of altered mental status Due to conservative plan of care requested CVA/ACS were not investigated however there were no signs/symptoms of those on presentation Altered mental status suspected to be secondary to worsening of chronic dementia and/or dehydration/hypernatremia (3) Dehydration with hypernatremia Current Visit: Yes Status: Acute Assessment and Plan: Patient has been receiving D5 at 100 mL/h per nephrology recommendations Physical exam indicates patient is better hydrated, labs showing improvement in hypernatremia Improvement in labs and declining clinical status is indicative of poor prognosis Due to respiratory distress and signs consistent with poor airway protection as well as family goals we will discontinue fluids at this time (4) Atrial fibrillation with RVR Current Visit: Yes Status: Acute Assessment and Plan: Patient has known history of atrial fibrillation, he is not currently antico agulated secondary to preference for less aggressive care He is rate controlled as needed with IV metoprolol, we will continue to monitor (5) Dementia Current Visit: Yes Status: Chronic DVT Prophylaxis: Subcutaneous heparin discontinued due to comfort care goals - Time Spent with Patient Total time spent is greater than 50% in coordination of care (as documented) at patient's floor/unit and/or counseling patient: Internal Medicine: Result - Labs CBC & Chem 7: 10/30/18 03:40 10/31/18 02:55 Labs: BMP 10/30/18 10/31/18 06:57 02:55 Sodium 154 H 147 H Potassium 4.2 3.8 Chloride 119 H 116 H Carbon Dioxide 25 21 L BUN 56 H 41 H Creatinine 1.43 H 1.25 Glucose 166 H 123 H Calcium 7.9 L 7.7 L Cardiac Enzymes 10/30/18 Range/Units 06:57 Troponin I 0.04 H* (< 0.04) ng/mL - ABG Interpretation ABG results: PT/INR, D-dimer PT 18.8 Seconds (9.4-12.1) H 10/30/18 03:40 - Impressions Impressions Chest X-Ray 10/29/18 13:41 IMPRESSION: No acute process. Resolution of previously seen left pleural effusion and left basilar opacity. D/ / 10/29/2018 15:00:00 Dallas Reynolds MD / susi Interpreting Provider: Dallas Reynolds MD <Marky Goodson - Last Filed: 10/31/18 13:06> (2) Altered mental status Qualifiers: Altered mental status type: somnolence Qualified Code(s): R40.0 - Somnolence (5) Dementia Qualifiers: Dementia type: unspecified type Dementia behavioral disturbance: with behavioral disturbance Qualified Code(s): F03.91 - Unspecified dementia with behavioral disturbance
[2018-10-31] MEDS: *HR* LORazepam 2 MG/ML VIAL IVP PRN ×3 (11:07→20:27)
[2018-10-31] MEDS: Scopolamine Patch 1.5 MG PATCH.TD72 TD SCH (11:07)
--- NOTE | 2018-10-31 11:15 | Nephrology Progress Note ---
Date of Encounter: 10/31/18 Time of Encounter: 09:09 - Assessment and Plan (1) Hypernatremia Current Visit: Yes Status: Acute Trending better, though still elevated plasma sodium. I recommend the patient take oral intake by mouth when able to avoid developing a fluid deficit. D5W was acceptable but at a lower rate. I will politely sign off at this time, but please feel free to call or page nephrology with any related questions. (2) Altered mental status Current Visit: Yes Status: Acute Qualifiers: Altered mental status type: somnolence Qualified Code(s): R40.0 - Somnolence (3) Dementia Current Visit: Yes Status: Chronic Qualifiers: Dementia type: unspecified type Dementia behavioral disturbance: with behavioral disturbance Qualified Code(s): F03.91 - Unspecified dementia with behavioral disturbance (4) CKD (chronic kidney disease), stage III Current Visit: Yes Status: Chronic Subjective Principal diagnosis: Hyponatremia Interval history: The patient was seen and examined earlier in the day. The patient did not provi de any subjective history due to dementia, which limits the subjective portion of this note. Objective - Vital Signs Vital signs: Vital Signs Temp Pulse Resp BP Pulse Ox 10/31/18 07:50 98.7 F 132 34 130/81 95 10/31/18 05:32 98.6 F 95 12 107/75 90 10/31/18 01:35 99.4 F 116 10 123/76 90 10/30/18 20:35 97.6 F 75 21 97/70 90 10/30/18 18:02 97.7 F 101 24 107/68 95 10/30/18 11:24 97.9 F Intake and Output 10/30/18 10/31/18 10/31/18 23:59 07:59 15:59 Intake Total 1000 / 1000 Output Total 550 / 1250 350 / 350 Balance -550 / 2725 650 / 650 Intake: IV Fluids 1000 / 1000 Dextrose 5% 1,000 ML @ 100 mls/ 1000 / 1000 hr IVC .Q10H [facility] Rx#:[id number] Output: Urine 0 / 0 350 / 350 Catheter 550 / 1250 Other: Weight 74.4 kg Blood Glucose* 121 123 Patient Weight 10/31/18 23:59 Weight 74.4 kg - General Appearance Exam: General appearance: cachectic, chronically ill, fatigue, frail EENT: mucous membranes dry Neck: supple Respiratory: clear Cardiology: no edema, normal S1, normal S2 Gastrointestinal: normoactive bowel sounds, no guarding Integumentary: warm and dry Neurologic: confused, disoriented Musculoskeletal: no cyanosis, no clubbing - Lab 10/30/18 03:40 10/31/18 02:55 Most recent lab results 10/31/18 02:55 Calcium 7.7 L Magnesium 2.3 Consult Discharge Plan - Plan Referrals: Darin Alicea Jr, MD [Primary Care Provider] -
[2018-10-31] MEDS ORDERED: *HR* Metoprolol 5 MG/5 ML VIAL IVP PRN (11:51)
[2018-10-31] MEDS ORDERED: *HR* LORazepam 2 MG/ML VIAL IVP PRN (12:37)
[2018-10-31] MEDS ORDERED: Morphine Sulfate 2 MG/ML SYRINGE IVP PRN ×2 (12:42→15:13)
[2018-10-31] MEDS ORDERED: Morphine Sulfate 2 MG/ML SYRINGE IVP ONE ×2 (15:12→18:14)
[2018-10-31] MEDS ORDERED: Acetaminophen IV 1,000 MG/100 ML INFUS..BTL IVPB ONE (17:01)
[2018-10-31] MEDS: levoFLOXacin 750 MG/150 ML 750 MG/150 ML BAG IVPB SCH (20:27)
[2018-10-31] MEDS ORDERED: Acetaminophen 650 MG RECTAL SUPP RC PRN (21:00)
[2018-10-31] MEDS: Morphine Sulfate 2 MG/ML SYRINGE IVP PRN (23:04)
[2018-11-01] MEDS: *HR* LORazepam 2 MG/ML VIAL IVP PRN ×6 (00:30→22:18)
[2018-11-01] MEDS: Morphine Sulfate 2 MG/ML SYRINGE IVP PRN ×5 (02:53→20:47)
[2018-11-01] MEDS ORDERED: *HR* LORazepam 2 MG/ML VIAL IVP ONE (03:40)
--- NOTE | 2018-11-01 07:30 | Internal Med Progress Note ---
<Alicia Perez - Last Filed: 11/01/18 09:27> Hospitalist Progress Note - Encounter Date of Encounter: 11/01/18 - Exam Vitals: Temp Pulse Resp BP Pulse Ox 102.9 F H 132 26 121/80 96 11/01/18 08:29 11/01/18 08:29 11/01/18 08:29 11/01/18 08:29 11/01/18 08:29 - Time Spent with Patient Total time spent is greater than 50% in coordination of care (as documented) at patient's floor/unit and/or counseling patient: Internal Medicine: Result - Labs CBC & Chem 7: 10/30/18 03:40 10/31/18 02:55 - ABG Interpretation ABG results: PT/INR, D-dimer PT 18.8 Seconds (9.4-12.1) H 10/30/18 03:40 Consult Discharge Plan - Plan Referrals: Darin Alicea Jr, MD [Primary Care Provider] - - Attending Attestation I examined this patient and my medical decision-making was reviewed with the Resident Physician Dr Goodson. I agree with the documented findings, disposition and treatment plan as described except to the extent set forth below. Mr Bunn was admitted with hypernatremia, unresponsiveness and severe dementia He is now DNR CC with comofrt care treatment remains unresponsive, and daughter at bedside. They feel he is not looking comfortable. Discussed that his increased work of breathing and pauses in breathing are part of the natural process and that the medications given help his brain not to sense being short of breath. We will make adjustment to morphine further this morning and grateful. family denies other needs at this time gen- unresponsive, appears stated age, cachectic cv- tachy rate and reg rhythm lungs- irregular breathing pattern, ctabl, accessory muscle use neuro- unresponsive Hypernatremia 2/2 dehydration 2/2 severe dementia- had no improvement in mentation with improvement in kidney function and sodium levels, no further IVFs given resp status changes and goc changes , transitioned to comfort care End stage Dementia- comfort care/palliative care to return tomorrow, slow up titration of morphine for comfort SIRS without evidence of infxn to date suspected 2/2 dehydration- cont levaquin as per family request, cxs remain ngtd pAfib w RVR- prn BB for comfort further dx and plan as noted by resident <Marky Goodson - Last Filed: 11/01/18 12:30> Hospitalist Progress Note - Encounter Date of Encounter: 11/01/18 Time of Encounter: 07:30 - Subjective Interval History: No acute events overnight, no changes in clinical status morning. Discussion was had with family regarding his comfort. We discussed that we would adjust his morphine dosage to give him the most comfort we can. I explained that his appearance of dyspnea and agonal breathing is normal at this stage and that although he appeared uncomfortable our medications are doing their job. - Exam Vitals: Temp Pulse Resp BP Pulse Ox 99.3 F 102 22 102/67 94 10/31/18 19:44 10/31/18 19:44 10/31/18 19:44 10/31/18 19:44 10/31/18 19:44 Exam: General: Unresponsive HEENT: dry mucosa, no icterus, neck supple Chest: Minimal rales diffusely, agonal breathing, no wheeze or rhonchi, tachycardic rate and irregular rhythm Abdomen: soft, scaphoid, benign, positive bowel sounds Ext: No abnormalities noted Neuro: Unresponsive Skin: Mildly diaphoretic, warm - Assessment and Plan (1) Advance care planning Current Visit: Yes Status: Acute Assessment and Plan: Patient exhibiting poor clinical status with poor prognosis anticipated Goals of care discussion had with family, they requested comfort care measures We have discontinued fluids and antibiotics and initiated when necessary morphine for dyspnea Patient also has when necessary Ativan and Zofran as well as a scopolamine patch Morphine and Ativan have been uptitrated for patient's comfort, family is aware of plan and agreeable Dental Appliance Repairer services were also offered, we will continue to check in with patient and family. (2) Altered mental status Current Visit: Yes Status: Acute Assessment and Plan: Per record review patient was apparently spontaneously responsive on admission Patient had decreased responsiveness yesterday and is now unresponsive Patient met SIRS criteria on admission but no infectious source has been found and he is afebrile, empiric Levaquin was initiated on admission, plan was to discontinue for comfort care measures however family has requested Levaquin remain on board, we will comply Patient was dehydrated and hypernatremic on presentation, this has improved but not resolved and could be potential source of altered mental status Due to conservative plan of care requested CVA/ACS were not investigated however there were no signs/symptoms of those on presentation Altered mental status suspected to be secondary to worsening of chronic dementia and/or dehydration/hypernatremia (3) Dehydration with hypernatremia Current Visit: Yes Status: Acute Assessment and Plan: Patient was receiving D5 at 100 mL/h per nephrology recommendations on admission Physical exam indicates patient is better hydrated, labs showed improvement in hypernatremia Improvement in labs and declining clinical status is indicative of poor prognosis Due to respiratory distress and signs consistent with poor airway protection as well as family goals fluids were discontinued (4) Atrial fibrillation with RVR Current Visit: Yes Status: Acute Assessment and Plan: Patient has known history of atrial fibrillation, he is not currently anticoagulated secondary to preference for less aggressive care He is rate controlled as needed with IV metoprolol, we will continue to monitor (5) Dementia Current Visit: Yes Status: Chronic DVT Prophylaxis: Subcutaneous heparin discontinued due to comfort care goals - Time Spent with Patient Total time spent is greater than 50% in coordination of care (as documented) at patient's floor/unit and/or counseling patient: Internal Medicine: Result - Labs CBC & Chem 7: 10/30/18 03:40 10/31/18 02:55 - ABG Interpretation ABG results: PT/INR, D-dimer PT 18.8 Seconds (9.4-12.1) H 10/30/18 03:40 <Marky Goodson - Last Filed: 11/01/18 12:30> (2) Altered mental status Qualifiers: Altered mental status type: somnolence Qualified Code(s): R40.0 - Somnolence (5) Dementia Qualifiers: Dementia type: unspecified type Dementia behavioral disturbance: with behavioral disturbance Qualified Code(s): F03.91 - Unspecified dementia with behavioral disturbance
[2018-11-01] MEDS: levoFLOXacin 750 MG/150 ML 750 MG/150 ML BAG IVPB SCH (21:03)
[2018-11-02] MEDS: Morphine Sulfate 2 MG/ML SYRINGE IVP PRN ×11 (00:04→22:33)
[2018-11-02] MEDS: *HR* LORazepam 2 MG/ML VIAL IVP PRN ×5 (02:17→20:36)
--- NOTE | 2018-11-02 08:19 | Internal Med Progress Note ---
<Alicia Perez - Last Filed: 11/02/18 10:02> Hospitalist Progress Note - Encounter Date of Encounter: 11/02/18 - Exam Vitals: Temp Pulse Resp BP Pulse Ox 98.4 F 80 18 117/75 92 11/02/18 07:25 11/02/18 07:25 11/02/18 07:25 11/02/18 07:25 11/02/18 07:25 - Time Spent with Patient Total time spent is greater than 50% in coordination of care (as documented) at patient's floor/unit and/or counseling patient: Internal Medicine: Result - Labs CBC & Chem 7: 10/30/18 03:40 10/31/18 02:55 - ABG Interpretation ABG results: PT/INR, D-dimer PT 18.8 Seconds (9.4-12.1) H 10/30/18 03:40 Consult Discharge Plan - Plan Referrals: Darin Alicea Jr, MD [Primary Care Provider] - - Attending Attestation I examined this patient and my medical decision-making was reviewed with the Res ident Physician Dr Goodson. I agree with the documented findings, disposition and treatment plan as described except to the extent set forth below. Mr Bunn was admitted with hypernatremia, unresponsiveness and severe dementia He is now DNR CC with comfort care treatment remains unresponsive family not present. Pt care giving him a bath. morphine dosing change by night team overnight for dyspnea gen- unresponsive, appears stated age, cachectic cv- reg rate and reg rhythm, no le edema lungs- ctabl, accessory muscle use on O2 nc, regular breathing pattern neuro- unresponsive Hypernatremia 2/2 dehydration 2/2 severe dementia- transitioned to comfort care, will update palliative and obtain further assistance in sx management today SIRS without evidence of infxn to date suspected 2/2 dehydration- cont levaquin as per family request, cxs remain ngtd pAfib w RVR- prn BB for comfort further dx and plan as noted by resident <Marky Goodson - Last Filed: 11/02/18 13:49> Hospitalist Progress Note - Encounter Date of Encounter: 11/02/18 Time of Encounter: 08:19 - Subjective Interval History: No acute events overnight. Medication regimen adjusted overnight by SMT OPERATOR due to family concerns patient is uncomfortable. Palliative saw them today and confirmed medication regimen. - Exam Vitals: Temp Pulse Resp BP Pulse Ox 98.4 F 80 18 117/75 92 11/02/18 07:25 11/02/18 07:25 11/02/18 07:25 11/02/18 07:25 11/02/18 07:25 Exam: General: Unresponsive HEENT: dry mucosa, no icterus, neck supple Chest: Minimal rales diffusely, agonal breathing, no wheeze, diffuse rhonchi, tachycardic rate and irregular rhythm Abdomen: soft, scaphoid, benign, positive bowel sounds Ext: No abnormalities noted Neuro: Unresponsive, patient does resist manual eye opening, pupils minimally reactive to light Skin: Mildly diaphoretic, warm - Assessment and Plan (1) Advance care planning Current Visit: Yes Status: Acute Assessment and Plan: Patient exhibiting poor clinical status with poor prognosis anticipated Goals of care discussion had with family, they requested comfort care measures We have discontinued fluids and antibiotics and initiated when necessary morphine for dyspnea Patient also has when necessary Ativan and Zofran as well as a scopolamine patch Morphine and Ativan have been uptitrated for patient's comfort, family is aware of plan and agreeable Palliative care saw patient today, confirmed medication regimen Pest Technician services were also offered, we will continue to check in with patient and family. (2) Altered mental status Current Visit: Yes Status: Acute Assessment and Plan: Per record review patient was apparently spontaneously responsive on admission Patient is now unresponsive Patient met SIRS criteria on admission but no infectious source has been found and he is afebrile, empiric Levaquin was initiated on admission, plan was to discontinue for comfort care measures however family has requested Levaquin remain on board, we will comply Patient was dehydrated and hypernatremic on presentation, this has improved but not resolved and could be potential source of altered mental status Due to conservative plan of care requested CVA/ACS were not investigated however there were no signs/symptoms of those on presentation Altered mental status suspected to be secondary to worsening of chronic dementia and/or dehydration/hypernatremia (3) Dehydration with hypernatremia Current Visit: Yes Status: Acute Assessment and Plan: Patient was receiving D5 at 100 mL/h per nephrology recommendations on admission Physical exam indicates patient is better hydrated, labs showed improvement in hypernatremia Improvement in labs and declining clinical status is indicative of poor prognosis Due to respiratory distress and signs consistent with poor airway protection as well as family goals fluids were discontinued (4) Atrial fibrillation with RVR Current Visit: Yes Status: Acute Assessment and Plan: Patient has known history of atrial fibrillation, he is not currently antic oagulated secondary to preference for less aggressive care He is rate controlled as needed with IV metoprolol, we will continue to monitor (5) Dementia Current Visit: No Status: Chronic DVT Prophylaxis: Subcutaneous heparin discontinued due to comfort care goals - Time Spent with Patient Total time spent is greater than 50% in coordination of care (as documented) at patient's floor/unit and/or counseling patient: Internal Medicine: Result - Labs CBC & Chem 7: 10/30/18 03:40 10/31/18 02:55 - ABG Interpretation ABG results: PT/INR, D-dimer PT 18.8 Seconds (9.4-12.1) H 10/30/18 03:40 <Marky Goodson - Last Filed: 11/02/18 13:49> (2) Altered mental status Qualifiers: Altered mental status type: somnolence Qualified Code(s): R40.0 - Somnolence (5) Dementia Qualifiers: Dementia type: unspecified type Dementia behavioral disturbance: with behavioral disturbance Qualified Code(s): F03.91 - Unspecified dementia with behavioral disturbance
--- NOTE | 2018-11-02 10:05 | Palliative Progress Note ---
<Sylvie Evans - Last Filed: 11/02/18 13:47> Date of Encounter: 11/02/18 Time of Encounter: 09:30 - Assessment and plan (1) Palliative care encounter Current Visit: Yes Status: Acute (2) Advance care planning Current Visit: Yes Status: Acute Assessment and plan: Had conversation with family. Dr. Treviño, , 2 daughters and 2 granddaughters present. Discussed goals of making patient comfortable, including discontinuing all unnecessary medications including antibiotics at this time. Discussed changing Tylenol from suppository to IV PRN for fever. Discussed families concerns regarding patients dyspnea which is difficult for them to see. - Increase morphine to 4mg Q2H IVP PRN for dyspnea - Increase lorazepam to 2mg Q4H IVP PRN for agitation/anxiety - Stop Tylenol suppository - Start IV Tylenol PRN for fever Will continue to monitor for need for changes to medications for continued comfort. (3) Altered mental status Current Visit: Yes Status: Acute Assessment and plan: Patient continues to only be responsive to tactile stimuli at this time (4) Dementia Current Visit: No Status: Chronic (5) Atrial fibrillation with RVR Current Visit: Yes Status: Acute (6) Dehydration with hypernatremia Current Visit: Yes Status: Acute Assessment and plan: Patient had received IV fluids on arrival to ED. At this time, do not recommend continued use of IV fluids as this can prolong the dying process. - Time Spent With Patient Total time spent is greater than 50% in coordination of care (as documented) at patient's floor/unit and/or counseling patient: 25 - 35 minutes - Subjective Interval history: Patient was seen at bedside. Patient appears to be in pain/discomfort when moved during examination. Patient is not arousable otherwise. Patient's family was present - , 2 daughters and 2 granddaughters. They express concern over pat ient's breathing not being comfortable. They also have concerns over potential areas of skin breakdown on his legs. They request that he not be moved too much as it makes that patient appear more uncomfortable. - Constitutional Vitals: Abnormal lab results WBC 18.5 K/mcL (4.3-11.1) H 10/30/18 03:40 RBC 3.88 M/mcL (4.19-5.50) L 10/30/18 03:40 MCV 107.5 fL (83.0-100.0) H 10/30/18 03:40 MCHC 30.9 g/dL (31.6-35.5) L 10/30/18 03:40 Plt Count 105 K/mcL (140-400) L 10/30/18 03:40 Neutrophils # 16.2 K/mcL (1.6-8.9) H 10/30/18 03:40 Nucleated RBCs/100 WBC 0.1 /100 WBC (0) H 10/29/18 14:06 PT 18.8 Seconds (9.4-12.1) H 10/30/18 03:40 APTT 25.9 Seconds (26.0-36.0) L 10/30/18 03:40 Sodium 147 mEq/L (136-145) H 10/31/18 02:55 Chloride 116 mEq/L (98-107) H 10/31/18 02:55 Carbon Dioxide 21 mEq/L (23-29) L 10/31/18 02:55 BUN 41 mg/dL (8-23) H 10/31/18 02:55 Creatinine 1.43 mg/dL (0.70-1.30) H 10/30/18 06:57 Est GFR ( Amer) 58 (> 60) L 10/30/18 06:57 Est GFR (Non-Af Amer) 56 (> 60) L 10/31/18 02:55 BUN/Creatinine Ratio 33 (6-26) H 10/31/18 02:55 Glucose 123 mg/dL (70-105) H 10/31/18 02:55 POC Glucose 123 mg/dL (70-99) H 10/31/18 06:00 Calculated Osmolality 315 (280-300) H 10/31/18 02:55 Lactic Acid 2.7 mmol/L (0.5-2.2) H 10/29/18 14:06 Calcium 7.7 mg/dL (8.6-10.3) L 10/31/18 02:55 Phosphorus 4.6 mg/dL (2.7-4.5) H 10/29/18 14:06 Magnesium 3.0 mg/dL (1.6-2.6) H 10/29/18 14:06 Total Bilirubin 1.1 mg/dL (0.3-1.0) H 10/30/18 03:40 Direct Bilirubin 0.4 mg/dL (0.0-0.2) H 10/29/18 14:06 Troponin I 0.04 ng/mL (< 0.04) H* 10/30/18 06:57 Serum Total Protein 5.7 g/dL (6.4-8.9) L 10/30/18 03:40 Albumin 2.8 g/dL (3.5-5.7) L 10/30/18 03:40 Albumin/Globulin Ratio 1.0 (1.1-2.2) L 10/30/18 03:40 Ur Specific [place] 1.026 (1.010-1.025) H 10/29/18 13:57 Urine Bilirubin Small (Negative) H 10/29/18 13:57 General appearance: Present: average body habitus - Head Head exam: Present: atraumatic, normocephalic - Neck Neck exam: Present: full ROM - Respiratory Respiratory exam: Present: accessory muscle use, decreased breath sounds Additional comments: Patient has apneic shallow breathing with decreased breath sounds. - Cardiovascular Cardiovascular exam: Present: RRR, +S1, +S2 - GI/Abdominal GI/Abdominal exam: Present: normal bowel sounds, soft. Absent: tenderness - Additional comments: Bahena Cathather in place with dark urine - Extremities Exam Extremities exam: Present: pedal edema - Neurological Exam Neurological exam: Absent: alert - Skin Additional comments: Patient has a stage 2 pressure ulcer located on his left medial malleolus. A stage 1 pressure ulcer is located on his right lateral malleolus. Palliative Quality Palliative Quality: Screen for Code Status: Yes, Screen for Goals of Care: Yes, Screen for Pain: Yes, If Pain Regimen Started, Initiate Bowel Regimen: Yes, Screen for Nausea/Vomitting: Yes Code Status: 10/29/18 18:52 Resuscitation Status: Active [RES] Routine Comment: Resuscitation Status: DNR-Comfort Care - Labs CBC & Chem 7: 10/30/18 03:40 10/31/18 02:55 - ABG Interpretation ABG results: PT/INR, D-dimer PT 18.8 Seconds (9.4-12.1) H 10/30/18 03:40 Palliative Scale - Palliative Performance Scale How ambulatory is this patient?: Totally bed bound What is patient's level of activity and evidence of disease?: Unable to do any activity, Extensive disease How much self-care assistance does patient require?: Total care How much oral intake does the patient have?: Mouth care only What is this patient's level of consciousness?: Drowsy or coma with or without confusion Palliative Performance Score: 10 % Consult Discharge Plan - Plan Referrals: Darin Alicea Jr, MD [Primary Care Provider] - <Nabila Treviño - Last Filed: 11/02/18 14:58> Date of Encounter: 11/02/18 - Assessment and plan (1) Advance care planning Current Visit: Yes Status: Acute (2) Altered mental status Current Visit: Yes Status: Acute Qualifiers: Altered mental status type: somnolence Qualified Code(s): R40.0 - Somnolence (3) Atrial fibrillation with RVR Current Visit: Yes Status: Acute (4) Dementia Current Visit: No Status: Chronic Qualifiers: Dementia type: unspecified type Dementia behavioral disturbance: with behavioral disturbance Qualified Code(s): F03.91 - Unspecified dementia with behavioral disturbance (5) Dehydration with hypernatremia Current Visit: Yes Status: Acute - Time Spent With Patient Total time spent is greater than 50% in coordination of care (as documented) at patient's floor/unit and/or counseling patient: - Constitutional Vitals: Abnormal lab results WBC 18.5 K/mcL (4.3-11.1) H 10/30/18 03:40 RBC 3.88 M/mcL (4.19-5.50) L 10/30/18 03:40 MCV 107.5 fL (83.0-100.0) H 10/30/18 03:40 MCHC 30.9 g/dL (31.6-35.5) L 10/30/18 03:40 Plt Count 105 K/mcL (140-400) L 10/30/18 03:40 Neutrophils # 16.2 K/mcL (1.6-8.9) H 10/30/18 03:40 Nucleated RBCs/100 WBC 0.1 /100 WBC (0) H 10/29/18 14:06 PT 18.8 Seconds (9.4-12.1) H 10/30/18 03:40 APTT 25.9 Seconds (26.0-36.0) L 10/30/18 03:40 Sodium 147 mEq/L (136-145) H 10/31/18 02:55 Chloride 116 mEq/L (98-107) H 10/31/18 02:55 Carbon Dioxide 21 mEq/L (23-29) L 10/31/18 02:55 BUN 41 mg/dL (8-23) H 10/31/18 02:55 Creatinine 1.43 mg/dL (0.70-1.30) H 10/30/18 06:57 Est GFR ( Amer) 58 (> 60) L 10/30/18 06:57 Est GFR (Non-Af Amer) 56 (> 60) L 10/31/18 02:55 BUN/Creatinine Ratio 33 (6-26) H 10/31/18 02:55 Glucose 123 mg/dL (70-105) H 10/31/18 02:55 POC Glucose 123 mg/dL (70-99) H 10/31/18 06:00 Calculated Osmolality 315 (280-300) H 10/31/18 02:55 Lactic Acid 2.7 mmol/L (0.5-2.2) H 10/29/18 14:06 Calcium 7.7 mg/dL (8.6-10.3) L 10/31/18 02:55 Phosphorus 4.6 mg/dL (2.7-4.5) H 10/29/18 14:06 Magnesium 3.0 mg/dL (1.6-2.6) H 10/29/18 14:06 Total Bilirubin 1.1 mg/dL (0.3-1.0) H 10/30/18 03:40 Direct Bilirubin 0.4 mg/dL (0.0-0.2) H 10/29/18 14:06 Troponin I 0.04 ng/mL (< 0.04) H* 10/30/18 06:57 Serum Total Protein 5.7 g/dL (6.4-8.9) L 10/30/18 03:40 Albumin 2.8 g/dL (3.5-5.7) L 10/30/18 03:40 Albumin/Globulin Ratio 1.0 (1.1-2.2) L 10/30/18 03:40 Ur Specific [place] 1.026 (1.010-1.025) H 10/29/18 13:57 Urine Bilirubin Small (Negative) H 10/29/18 13:57 - Attending Attestation I examined this patient and my medical decision-making was reviewed with the Resident Physician. I agree with the documented findings, disposition and treatment plan as described except to the extent set forth below. Pt remains comatose, mental status did not improve despite continued treatment. 20 minutes advanced care planning meeting with family. Decision was made to discontinue ABX, and increase morphine and ativan with the goal to improve comfort. Family made aware that although not intended, pain medication as a side effect may contribute to accelerate the dying processes. Noted a stage 2 ulcer on left medial malleollus and a stage one on R lat malleollus. Nurse made to place protective devices. Palliative care will continue to follow closely and support with management. Palliative Quality Code Status: 10/29/18 18:52 Resuscitation Status: Active [RES] Routine Comment: Resuscitation Status: DNR-Comfort Care - Labs CBC & Chem 7: 10/30/18 03:40 10/31/18 02:55 - ABG Interpretation ABG results: PT/INR, D-dimer PT 18.8 Seconds (9.4-12.1) H 10/30/18 03:40
[2018-11-03] MEDS: *HR* LORazepam 2 MG/ML VIAL IVP PRN ×6 (00:48→20:36)
[2018-11-03] MEDS: Morphine Sulfate 2 MG/ML SYRINGE IVP PRN ×3 (03:47→10:40)
--- NOTE | 2018-11-03 07:47 | Internal Med Progress Note ---
<Alicia Perez - Last Filed: 11/03/18 10:04> Hospitalist Progress Note - Encounter Date of Encounter: 11/03/18 - Exam Vitals: Temp Pulse Resp BP Pulse Ox 103.0 F H 139 32 119/78 83 11/03/18 07:35 11/03/18 07:35 11/03/18 07:35 11/03/18 07:35 11/03/18 07:35 - Time Spent with Patient Total time spent is greater than 50% in coordination of care (as documented) at patient's floor/unit and/or counseling patient: Internal Medicine: Result - Labs CBC & Chem 7: 10/30/18 03:40 10/31/18 02:55 - ABG Interpretation ABG results: PT/INR, D-dimer PT 18.8 Seconds (9.4-12.1) H 10/30/18 03:40 Consult Discharge Plan - Plan Referrals: Darin Alicea Jr, MD [Primary Care Provider] - - Attending Attestation I examined this patient and my medical decision-making was reviewed with the Resident Physician Dr Goodson. I agree with the documented findings, disposition and treatment plan as described except to the extent set forth below. Mr Bunn was admitted with hypernatremia, unresponsiveness and severe dementia He is now DNR CC with comfort care treatment remains unresponsive, at bedside, feels he is comfortable gen- unresponsive, cachectic cv- tachy rate and reg rhythm lungs- accessory muscle use on O2 nc, regular breathing pattern neuro- unresponsive Hypernatremia 2/2 dehydration 2/2 severe dementia- transitioned to comfort care pAfib w RVR- prn BB for comfort further dx and plan as noted by resident <Marky Goodson - Last Filed: 11/03/18 14:46> Hospitalist Progress Note - Encounter Date of Encounter: 11/03/18 Time of Encounter: 07:47 - Subjective Interval History: No acute events overnight, no changes morning. Patient is continually nonresponsive. Family was counseled that this is normal and it is difficult to predict timeline. We discussed that we will maintain current medication regimen which they were agreeable to. - Exam Vitals: Temp Pulse Resp BP Pulse Ox 103.0 F H 139 32 119/78 83 11/03/18 07:35 11/03/18 07:35 11/03/18 07:35 11/03/18 07:35 11/03/18 07:35 Exam: General: Unresponsive HEENT: dry mucosa, no icterus, neck supple Chest: Minimal rales diffusely, agonal breathing, no wheeze, diffuse rhonchi, tachycardic rate and irregular rhythm Abdomen: soft, scaphoid, benign, positive bowel sounds Ext: No abnormalities noted Neuro: Unresponsive, patient does resist manual eye opening, pupils minimally reactive to light Skin: Mildly diaphoretic, warm - Assessment and Plan (1) Advance care planning Current Visit: Yes Status: Acute Assessment and Plan: Patient exhibiting poor clinical status with poor prognosis anticipated Goals of care discussion had with family, they requested comfort care measures We have discontinued fluids and antibiotics and initiated when necessary morphine for dyspnea Patient also has when necessary Ativan and Zofran as well as a scopolamine patch Morphine and Ativan have been uptitrated for patient's comfort, family is aware of plan and agreeable Palliative care saw patient today, confirmed medication regimen Support Representative services were also offered, we will continue to check in with patient and family. (2) Altered mental status Current Visit: Yes Status: Acute Assessment and Plan: Per record review patient was apparently spontaneously responsive on admission Patient is now unresponsive Patient met SIRS criteria on admission but no infectious source has been found and he is afebrile, empiric Levaquin was initiated on admission, plan was to discontinue for comfort care measures however family has requested Levaquin remain on board, we will comply Patient was dehydrated and hypernatremic on presentation, this has improved but not resolved and could be potential source of altered mental status Due to conservative plan of care requested CVA/ACS were not investigated however there were no signs/symptoms of those on presentation Altered mental status suspected to be secondary to worsening of chronic dementia and/or dehydration/hypernatremia (3) Dehydration with hypernatremia Current Visit: Yes Status: Acute Assessment and Plan: Patient was receiving D5 at 100 mL/h per nephrology recommendations on admission Physical exam indicates patient is better hydrated, labs showed improvement in hypernatremia Improvement in labs and declining clinical status is indicative of poor prognos is Due to respiratory distress and signs consistent with poor airway protection as well as family goals fluids were discontinued (4) Atrial fibrillation with RVR Current Visit: Yes Status: Acute Assessment and Plan: Patient has known history of atrial fibrillation, he is not currently anticoagulated secondary to preference for less aggressive care He is rate controlled as needed with IV metoprolol, we will continue to monitor (5) Dementia Current Visit: No Status: Chronic DVT Prophylaxis: Subcutaneous heparin discontinued due to comfort care goals - Time Spent with Patient Total time spent is greater than 50% in coordination of care (as documented) at patient's floor/unit and/or counseling patient: Internal Medicine: Result - Labs CBC & Chem 7: 10/30/18 03:40 10/31/18 02:55 - ABG Interpretation ABG results: PT/INR, D-dimer PT 18.8 Seconds (9.4-12.1) H 10/30/18 03:40 <Marky Goodson - Last Filed: 11/03/18 14:46> (2) Altered mental status Qualifiers: Altered mental status type: somnolence Qualified Code(s): R40.0 - Somnolence (5) Dementia Qualifiers: Dementia type: unspecified type Dementia behavioral disturbance: with behavioral disturbance Qualified Code(s): F03.91 - Unspecified dementia with behavioral disturbance
[2018-11-03] MEDS: Scopolamine Patch 1.5 MG PATCH.TD72 TD SCH (08:22)
--- NOTE | 2018-11-03 08:52 | Palliative Progress Note ---
<Sylvie Evans - Last Filed: 11/03/18 11:04> Date of Encounter: 11/03/18 Time of Encounter: 07:30 - Assessment and plan (1) Palliative care encounter Current Visit: Yes Status: Acute (2) Advance care planning Current Visit: Yes Status: Acute Assessment and plan: Patient continued to be comatose. Plan to continue with comfort care measures as per prior notes. Will continue to monitor for increasing pain or agitation and change medications as needed. Will continue to monitor for secretions and will adjust medications as needed. Patient's family continues to be at bedside, and are given the opportunity to voice concerns or to ask questions. - Increase lorazepam to 2mg Q2H IVP PRN for agitation and anxiety - Change morphine to 5mg oral solution Q2H SL PRN for dyspnea and pain - Continue PRN Tylenol IV for fever, as patient has been having intermittent fevers. Making use of IV medication due to families concerns regarding rolling/moving the patient to use suppository, and their fears over the patient being uncomfortable during this process. - Will continue to try to make use of medications only for the patient's comfort (3) Altered mental status Current Visit: Yes Status: Acute Qualifiers: Altered mental status type: somnolence Qualified Code(s): R40.0 - Somnolence (4) Dementia Current Visit: No Status: Chronic Qualifiers: Dementia type: unspecified type Dementia behavioral disturbance: with behavioral disturbance Qualified Code(s): F03.91 - Unspecified dementia with behavioral disturbance (5) Atrial fibrillation with RVR Current Visit: Yes Status: Acute (6) Dehydration with hypernatremia Current Visit: Yes Status: Acute - Time Spent With Patient Total time spent is greater than 50% in coordination of care (as documented) at patient's floor/unit and/or counseling patient: 25 - 35 minutes - Subjective Interval history: Patient was seen at bedside. Patient continues to be comatose. Patient was unarousable to touch. Patient continues to have shallow breathing. Patient appears to remain is same condition as prior day. - Constitutional Vitals: Abnormal lab results WBC 18.5 K/mcL (4.3-11.1) H 10/30/18 03:40 RBC 3.88 M/mcL (4.19-5.50) L 10/30/18 03:40 MCV 107.5 fL (83.0-100.0) H 10/30/18 03:40 MCHC 30.9 g/dL (31.6-35.5) L 10/30/18 03:40 Plt Count 105 K/mcL (140-400) L 10/30/18 03:40 Neutrophils # 16.2 K/mcL (1.6-8.9) H 10/30/18 03:40 Nucleated RBCs/100 WBC 0.1 /100 WBC (0) H 10/29/18 14:06 PT 18.8 Seconds (9.4-12.1) H 10/30/18 03:40 APTT 25.9 Seconds (26.0-36.0) L 10/30/18 03:40 Sodium 147 mEq/L (136-145) H 10/31/18 02:55 Chloride 116 mEq/L (98-107) H 10/31/18 02:55 Carbon Dioxide 21 mEq/L (23-29) L 10/31/18 02:55 BUN 41 mg/dL (8-23) H 10/31/18 02:55 Creatinine 1.43 mg/dL (0.70-1.30) H 10/30/18 06:57 Est GFR ( Amer) 58 (> 60) L 10/30/18 06:57 Est GFR (Non-Af Amer) 56 (> 60) L 10/31/18 02:55 BUN/Creatinine Ratio 33 (6-26) H 10/31/18 02:55 Glucose 123 mg/dL (70-105) H 10/31/18 02:55 POC Glucose 123 mg/dL (70-99) H 10/31/18 06:00 Calculated Osmolality 315 (280-300) H 10/31/18 02:55 Lactic Acid 2.7 mmol/L (0.5-2.2) H 10/29/18 14:06 Calcium 7.7 mg/dL (8.6-10.3) L 10/31/18 02:55 Phosphorus 4.6 mg/dL (2.7-4.5) H 10/29/18 14:06 Magnesium 3.0 mg/dL (1.6-2.6) H 10/29/18 14:06 Total Bilirubin 1.1 mg/dL (0.3-1.0) H 10/30/18 03:40 Direct Bilirubin 0.4 mg/dL (0.0-0.2) H 10/29/18 14:06 Troponin I 0.04 ng/mL (< 0.04) H* 10/30/18 06:57 Serum Total Protein 5.7 g/dL (6.4-8.9) L 10/30/18 03:40 Albumin 2.8 g/dL (3.5-5.7) L 10/30/18 03:40 Albumin/Globulin Ratio 1.0 (1.1-2.2) L 10/30/18 03:40 Ur Specific [place] 1.026 (1.010-1.025) H 10/29/18 13:57 Urine Bilirubin Small (Negative) H 10/29/18 13:57 General appearance: Present: average body habitus - Head Head exam: Present: atraumatic, normocephalic - Respiratory Respiratory exam: Present: accessory muscle use, CTAB Additional comments: Continues to have use of accessory muscles. Continues to take shallow breaths,, lung sounds are diminished but clear. - Cardiovascular Cardiovascular exam: Present: RRR, +S1, +S2 - GI/Abdominal GI/Abdominal exam: Present: normal bowel sounds, soft - Additional comments: Bahena catheter in place - Neurological Exam Neurological exam: Present: altered. Absent: alert - Skin Additional comments: Has a left medical malleolus stage 2 pressure ulcer - not visualized today Has a right lateral malleolus stage 1 pressure ulcer - not visualized today Mottling of the skin on the hands noted today, however extremities are still warm. Palliative Quality Palliative Quality: Screen for Code Status: Yes, Screen for Goals of Care: Yes, Screen for Pain: Yes, If Pain Regimen Started, Initiate Bowel Regimen: Yes, Screen for Nausea/Vomitting: Yes Code Status: 10/29/18 18:52 Resuscitation Status: Active [RES] Routine Comment: Resuscitation Status: DNR-Comfort Care - Labs CBC & Chem 7: 10/30/18 03:40 10/31/18 02:55 - ABG Interpretation ABG results: PT/INR, D-dimer PT 18.8 Seconds (9.4-12.1) H 10/30/18 03:40 Palliative Scale - Palliative Performance Scale How ambulatory is this patient?: Totally bed bound What is patient's level of activity and evidence of disease?: Unable to do any activity, Extensive disease How much self-care assistance does patient require?: Total care How much oral intake does the patient have?: Mouth care only What is this patient's level of consciousness?: Drowsy or coma with or without confusion Palliative Performance Score: 10 % Consult Discharge Plan - Plan Referrals: Darin Alicea Jr, MD [Primary Care Provider] - <Nabila Treviño - Last Filed: 11/03/18 13:58> Date of Encounter: 11/03/18 - Assessment and plan (1) Advance care planning Current Visit: Yes Status: Acute (2) Altered mental status Current Visit: Yes Status: Acute Qualifiers: Altered mental status type: somnolence Qualified Code(s): R40.0 - Somnolence (3) Atrial fibrillation with RVR Current Visit: Yes Status: Acute (4) Dementia Current Visit: No Status: Chronic Qualifiers: Dementia type: unspecified type Dementia behavioral disturbance: with behavioral disturbance Qualified Code(s): F03.91 - Unspecified dementia with behavioral disturbance (5) Dehydration with hypernatremia Current Visit: Yes Status: Acute - Time Spent With Patient Total time spent is greater than 50% in coordination of care (as documented) at patient's floor/unit and/or counseling patient: - Constitutional Vitals: Abnormal lab results WBC 18.5 K/mcL (4.3-11.1) H 10/30/18 03:40 RBC 3.88 M/mcL (4.19-5.50) L 10/30/18 03:40 MCV 107.5 fL (83.0-100.0) H 10/30/18 03:40 MCHC 30.9 g/dL (31.6-35.5) L 10/30/18 03:40 Plt Count 105 K/mcL (140-400) L 10/30/18 03:40 Neutrophils # 16.2 K/mcL (1.6-8.9) H 10/30/18 03:40 Nucleated RBCs/100 WBC 0.1 /100 WBC (0) H 10/29/18 14:06 PT 18.8 Seconds (9.4-12.1) H 10/30/18 03:40 APTT 25.9 Seconds (26.0-36.0) L 10/30/18 03:40 Sodium 147 mEq/L (136-145) H 10/31/18 02:55 Chloride 116 mEq/L (98-107) H 10/31/18 02:55 Carbon Dioxide 21 mEq/L (23-29) L 10/31/18 02:55 BUN 41 mg/dL (8-23) H 10/31/18 02:55 Creatinine 1.43 mg/dL (0.70-1.30) H 10/30/18 06:57 Est GFR ( Amer) 58 (> 60) L 10/30/18 06:57 Est GFR (Non-Af Amer) 56 (> 60) L 10/31/18 02:55 BUN/Creatinine Ratio 33 (6-26) H 10/31/18 02:55 Glucose 123 mg/dL (70-105) H 10/31/18 02:55 POC Glucose 123 mg/dL (70-99) H 10/31/18 06:00 Calculated Osmolality 315 (280-300) H 10/31/18 02:55 Lactic Acid 2.7 mmol/L (0.5-2.2) H 10/29/18 14:06 Calcium 7.7 mg/dL (8.6-10.3) L 10/31/18 02:55 Phosphorus 4.6 mg/dL (2.7-4.5) H 10/29/18 14:06 Magnesium 3.0 mg/dL (1.6-2.6) H 10/29/18 14:06 Total Bilirubin 1.1 mg/dL (0.3-1.0) H 10/30/18 03:40 Direct Bilirubin 0.4 mg/dL (0.0-0.2) H 10/29/18 14:06 Troponin I 0.04 ng/mL (< 0.04) H* 10/30/18 06:57 Serum Total Protein 5.7 g/dL (6.4-8.9) L 10/30/18 03:40 Albumin 2.8 g/dL (3.5-5.7) L 10/30/18 03:40 Albumin/Globulin Ratio 1.0 (1.1-2.2) L 10/30/18 03:40 Ur Specific [place] 1.026 (1.010-1.025) H 10/29/18 13:57 Urine Bilirubin Small (Negative) H 10/29/18 13:57 - Attending Attestation I examined this patient and my medical decision-making was reviewed with the Resident Physician. I agree with the documented findings, disposition and treatment plan as described except to the extent set forth below. Pt remains comatose, and tachypneic, using accessory muscles. He is receiving Morphine IV q2hrs and Ativan q4hrs. Morphine alone does not appear to make a big difference. states yesterday he had some episodes of apnea that has stopped. Noticed a dusky coloration of fingers,terminal fevers. Ativan frequency increased to q2hrs. Will continue to monitor closely. Palliative care will continue to follow closely and support with management. Palliative Quality Code Status: 10/29/18 18:52 Resuscitation Status: Active [RES] Routine Comment: Resuscitation Status: DNR-Comfort Care - Labs CBC & Chem 7: 10/30/18 03:40 10/31/18 02:55 - ABG Interpretation ABG results: PT/INR, D-dimer PT 18.8 Seconds (9.4-12.1) H 10/30/18 03:40
[2018-11-03] MEDS: Acetaminophen IV 1,000 MG/100 ML INFUS..BTL IVPB PRN (09:46)
[2018-11-03] MEDS ORDERED: Morphine Sulfate Oral CONC 10 MG/0.5 ML ORAL.SYG SL PRN (12:42)
--- NOTE | 2018-11-03 14:57 | Event Note ---
<Sylvie Evans - Last Filed: 11/03/18 15:07> Date of Encounter: 11/03/18 Time of Encounter: 14:00 Patient was seen again this afternoon. Patient continues to show a large amount of effort to breath using his accessory muscles. However patient's vital signs are changing with O2 stat decreasing to 77 and his respiratory rate increasing. He has had a small response to the increasing doses of morphine as well as having lorazepam at the same time as morphine per family, however, the improvement is not sustained for significant amounts of time. In an effort to help reduce the patient's air hunger, dyspnea and to help keep him comfortable amount of opioid needs to be increased. Plan to discontinue morphine. Plan to st art Fentanyl drip at 50mcg/hour with titration based on patients needs. <Nabila Treviño - Last Filed: 11/03/18 15:13> Date of Encounter: 11/03/18 I examined this patient and my medical decision-making was reviewed with the Resident Physician. I agree with the documented findings, disposition and treatment plan as described except to the extent set forth below.
[2018-11-03] MEDS: FentaNYL (PF) 1,000 MCG in 0.9 % Sodium Chloride 80 ML IVC SCH (15:25)
[2018-11-04] MEDS: *HR* LORazepam 2 MG/ML VIAL IVP PRN ×3 (00:07→06:06)
[2018-11-04] MEDS: Acetaminophen IV 1,000 MG/100 ML INFUS..BTL IVPB PRN (04:44)
--- NOTE | 2018-11-04 08:13 | Palliative Progress Note ---
<NathanSylvie B - Last Filed: 11/04/18 11:48> Date of Encounter: 11/04/18 Time of Encounter: 07:30 - Assessment and plan (1) Palliative care encounter Current Visit: Yes Status: Acute (2) Advance care planning Current Visit: Yes Status: Acute Assessment and plan: Patient was seen at bedside. Plan to continue current medications for comfort of the patient. Patient's family was provided with brief grief counseling through the use of active listening. Patient's family is agreeable to continue to make the patient as comfortable as possible through the use of comfort medications. Will attempt to minimize the use of other medications and invasive measures at this time. At this time patient is actively dying. (3) Dyspnea Current Visit: Yes Status: Acute Assessment and plan: Patient appears to have a decreased effort for breathing at this time compared to prior days. However he is still using some accessory muscles. He has been on 50mcg/hr of IV Fentanyl. Discussed with nurse about making use of titration to help improve patient's dyspnea. - Continue use of IV fentanyl with titration for pain and dyspnea - Continue use of PRN IV lorazepam for anxiety which may also help improve patient's dyspnea Qualifiers: Dyspnea type: other forms of dyspnea Qualified Code(s): R06.09 - Other fo perry of dyspnea (4) Fever Current Visit: Yes Status: Acute Assessment and plan: Continue PRN IV Tylenol for fever. At this time IV medication is being used due to family preference. Patient's family does not want the patient to be moved excessively due to concerns for his comfort. Qualifiers: Fever type: unspecified Qualified Code(s): R50.9 - Fever, unspecified (5) Altered mental status Current Visit: Yes Status: Acute Assessment and plan: Patient continued to be comatose at this time. Qualifiers: Altered mental status type: somnolence Qualified Code(s): R40.0 - Somnolence (6) Dementia Current Visit: No Status: Chronic Qualifiers: Dementia type: unspecified type Dementia behavioral disturbance: with behavioral disturbance Qualified Code(s): F03.91 - Unspecified dementia with behavioral disturbance (7) Atrial fibrillation with RVR Current Visit: Yes Status: Acute (8) Dehydration with hypernatremia Current Visit: Yes Status: Acute - Time Spent With Patient Total time spent is greater than 50% in coordination of care (as documented) at patient's floor/unit and/or counseling patient: Greater than 35 minutes - Subjective Interval history: Patient was seen at bedside. Patient continues to be comatose. Patient was jahaira rousable to touch. Patient continues to have shallow breathing with use of accessory muscles, however his effort is decreased on Fentanyl drip. Patient continues to have fevers throughout the night. Patient's daughter is at bedside this morning. - Constitutional Vitals: Abnormal lab results WBC 18.5 K/mcL (4.3-11.1) H 10/30/18 03:40 RBC 3.88 M/mcL (4.19-5.50) L 10/30/18 03:40 MCV 107.5 fL (83.0-100.0) H 10/30/18 03:40 MCHC 30.9 g/dL (31.6-35.5) L 10/30/18 03:40 Plt Count 105 K/mcL (140-400) L 10/30/18 03:40 Neutrophils # 16.2 K/mcL (1.6-8.9) H 10/30/18 03:40 Nucleated RBCs/100 WBC 0.1 /100 WBC (0) H 10/29/18 14:06 PT 18.8 Seconds (9.4-12.1) H 10/30/18 03:40 APTT 25.9 Seconds (26.0-36.0) L 10/30/18 03:40 Sodium 147 mEq/L (136-145) H 10/31/18 02:55 Chloride 116 mEq/L (98-107) H 10/31/18 02:55 Carbon Dioxide 21 mEq/L (23-29) L 10/31/18 02:55 BUN 41 mg/dL (8-23) H 10/31/18 02:55 Creatinine 1.43 mg/dL (0.70-1.30) H 10/30/18 06:57 Est GFR ( Amer) 58 (> 60) L 10/30/18 06:57 Est GFR (Non-Af Amer) 56 (> 60) L 10/31/18 02:55 BUN/Creatinine Ratio 33 (6-26) H 10/31/18 02:55 Glucose 123 mg/dL (70-105) H 10/31/18 02:55 POC Glucose 123 mg/dL (70-99) H 10/31/18 06:00 Calculated Osmolality 315 (280-300) H 10/31/18 02:55 Lactic Acid 2.7 mmol/L (0.5-2.2) H 10/29/18 14:06 Calcium 7.7 mg/dL (8.6-10.3) L 10/31/18 02:55 Phosphorus 4.6 mg/dL (2.7-4.5) H 10/29/18 14:06 Magnesium 3.0 mg/dL (1.6-2.6) H 10/29/18 14:06 Total Bilirubin 1.1 mg/dL (0.3-1.0) H 10/30/18 03:40 Direct Bilirubin 0.4 mg/dL (0.0-0.2) H 10/29/18 14:06 Troponin I 0.04 ng/mL (< 0.04) H* 10/30/18 06:57 Serum Total Protein 5.7 g/dL (6.4-8.9) L 10/30/18 03:40 Albumin 2.8 g/dL (3.5-5.7) L 10/30/18 03:40 Albumin/Globulin Ratio 1.0 (1.1-2.2) L 10/30/18 03:40 Ur Specific [place] 1.026 (1.010-1.025) H 10/29/18 13:57 Urine Bilirubin Small (Negative) H 10/29/18 13:57 - Head Head exam: Present: atraumatic, normocephalic - Neck Neck exam: Present: full ROM - Respiratory Respiratory exam: Present: accessory muscle use, decreased breath sounds, CTAB. Absent: rales, rhonchi, stridor, wheezes Additional comments: Continues to have shallow breathing with the use of accessory muscles to breath. - Cardiovascular Cardiovascular exam: Present: +S1, +S2, tachycardia - GI/Abdominal GI/Abdominal exam: Present: diminished bowel sounds, soft. Absent: tenderness - Rectal Rectal exam: Present: deferred - Additional comments: Bahena catheter in place - Extremities Exam Additional comments: hands are cool and dusky with minimal capillary refill present. Patient has pressure ulcers present on bilateral ankles as per prior notes, however these were not visualized today in an effort to keep patient comfortable. - Neurological Exam Neurological exam: Present: altered Additional comments: Pt comatose Palliative Quality Palliative Quality: Screen for Code Status: Yes, Screen for Goals of Care: Yes, Screen for Pain: Yes, If Pain Regimen Started, Initiate Bowel Regimen: Yes, Screen for Nausea/Vomitting: Yes Code Status: 10/29/18 18:52 Resuscitation Status: Active [RES] Routine Comment: Resuscitation Status: DNR-Comfort Care - Labs CBC & Chem 7: 10/30/18 03:40 10/31/18 02:55 - ABG Interpretation ABG results: PT/INR, D-dimer PT 18.8 Seconds (9.4-12.1) H 10/30/18 03:40 Palliative Scale - Palliative Performance Scale How ambulatory is this patient?: Totally bed bound What is patient's level of activity and evidence of disease?: Unable to do any activity, Extensive disease How much self-care assistance does patient require?: Total care How much oral intake does the patient have?: Mouth care only What is this patient's level of consciousness?: Drowsy or coma with or without confusion Palliative Performance Score: 10 % Consult Discharge Plan - Plan Referrals: Darin Alicea Jr, MD [Primary Care Provider] - <Nabila Treviño - Last Filed: 11/04/18 13:03> Date of Encounter: 11/04/18 - Assessment and plan (1) Advance care planning Current Visit: Yes Status: Acute (2) Altered mental status Current Visit: Yes Status: Acute Qualifiers: Altered mental status type: somnolence Qualified Code(s): R40.0 - Somnolence (3) Atrial fibrillation with RVR Current Visit: Yes Status: Acute (4) Dementia Current Visit: No Status: Chronic Qualifiers: Dementia type: unspecified type Dementia behavioral disturbance: with behavioral disturbance Qualified Code(s): F03.91 - Unspecified dementia with behavioral disturbance (5) Dehydration with hypernatremia Current Visit: Yes Status: Acute - Time Spent With Patient Total time spent is greater than 50% in coordination of care (as documented) at patient's floor/unit and/or counseling patient: 45 minutes - Constitutional Vitals: Abnormal lab results WBC 18.5 K/mcL (4.3-11.1) H 10/30/18 03:40 RBC 3.88 M/mcL (4.19-5.50) L 10/30/18 03:40 MCV 107.5 fL (83.0-100.0) H 10/30/18 03:40 MCHC 30.9 g/dL (31.6-35.5) L 10/30/18 03:40 Plt Count 105 K/mcL (140-400) L 10/30/18 03:40 Neutrophils # 16.2 K/mcL (1.6-8.9) H 10/30/18 03:40 Nucleated RBCs/100 WBC 0.1 /100 WBC (0) H 10/29/18 14:06 PT 18.8 Seconds (9.4-12.1) H 10/30/18 03:40 APTT 25.9 Seconds (26.0-36.0) L 10/30/18 03:40 Sodium 147 mEq/L (136-145) H 10/31/18 02:55 Chloride 116 mEq/L (98-107) H 10/31/18 02:55 Carbon Dioxide 21 mEq/L (23-29) L 10/31/18 02:55 BUN 41 mg/dL (8-23) H 10/31/18 02:55 Creatinine 1.43 mg/dL (0.70-1.30) H 10/30/18 06:57 Est GFR ( Amer) 58 (> 60) L 10/30/18 06:57 Est GFR (Non-Af Amer) 56 (> 60) L 10/31/18 02:55 BUN/Creatinine Ratio 33 (6-26) H 10/31/18 02:55 Glucose 123 mg/dL (70-105) H 10/31/18 02:55 POC Glucose 123 mg/dL (70-99) H 10/31/18 06:00 Calculated Osmolality 315 (280-300) H 10/31/18 02:55 Lactic Acid 2.7 mmol/L (0.5-2.2) H 10/29/18 14:06 Calcium 7.7 mg/dL (8.6-10.3) L 10/31/18 02:55 Phosphorus 4.6 mg/dL (2.7-4.5) H 10/29/18 14:06 Magnesium 3.0 mg/dL (1.6-2.6) H 10/29/18 14:06 Total Bilirubin 1.1 mg/dL (0.3-1.0) H 10/30/18 03:40 Direct Bilirubin 0.4 mg/dL (0.0-0.2) H 10/29/18 14:06 Troponin I 0.04 ng/mL (< 0.04) H* 10/30/18 06:57 Serum Total Protein 5.7 g/dL (6.4-8.9) L 10/30/18 03:40 Albumin 2.8 g/dL (3.5-5.7) L 10/30/18 03:40 Albumin/Globulin Ratio 1.0 (1.1-2.2) L 10/30/18 03:40 Ur Specific [place] 1.026 (1.010-1.025) H 10/29/18 13:57 Urine Bilirubin Small (Negative) H 10/29/18 13:57 - Attending Attestation I examined this patient and my medical decision-making was reviewed with the Resident Physician. I agree with the documented findings, disposition and treatment plan as described except to the extent set forth below. Patient remains comatose, tachypneic despite fentanyl drip, instructed nurse to titrate up. 30 minutes counseling with daughter and Pat. Emotional support provided. Palliative Quality Code Status: 10/29/18 18:52 Resuscitation Status: Active [RES] Routine Comment: Resuscitation Status: DNR-Comfort Care - Labs CBC & Chem 7: 10/30/18 03:40 10/31/18 02:55 - ABG Interpretation ABG results: PT/INR, D-dimer PT 18.8 Seconds (9.4-12.1) H 10/30/18 03:40
--- NOTE | 2018-11-04 08:40 | Internal Med Progress Note ---
<Marky Goodson - Last Filed: 11/04/18 13:32> Hospitalist Progress Note - Encounter Date of Encounter: 11/04/18 Time of Encounter: 08:40 - Subjective Interval History: No acute events overnight. Palliative did adjust medication regimen yesterday from morphine to fentanyl. I does have a lengthy discussion with family today r egarding dying process. They are in agreement that the patient appears comfortable and not in distress. - Exam Vitals: Temp Pulse Resp BP Pulse Ox 102.6 F H 108 34 94/62 83 11/04/18 07:41 11/04/18 07:41 11/04/18 07:41 11/04/18 07:41 11/04/18 07:41 Exam: General: Unresponsive HEENT: dry mucosa, no icterus, neck supple Chest: Minimal rales diffusely, agonal breathing, no wheeze, diffuse rhonchi, tachycardic rate and irregular rhythm Abdomen: soft, scaphoid, benign, positive bowel sounds Ext: No abnormalities noted Neuro: Unresponsive, patient does resist manual eye opening, pupils minimally reactive to light Skin: Mildly diaphoretic, warm - Assessment and Plan (1) Advance care planning Current Visit: Yes Status: Acute Assessment and Plan: Patient exhibiting poor clinical status with poor prognosis anticipated Goals of care discussion had with family, they requested comfort care measures We have discontinued fluids and antibiotics and initiated fentanyl drip for dyspnea Patient also has when necessary Ativan and Zofran as well as a scopolamine patch Fentanyl and Ativan have been uptitrated for patient's comfort, family is aware of plan and agreeable Palliative care saw patient today, confirmed medication regimen Clerk Analyst services were also offered, we will continue to check in with patient and family. (2) Altered mental status Current Visit: Yes Status: Acute Assessment and Plan: Per record review patient was apparently spontaneously responsive on admission, Patient is now unresponsive Patient was dehydrated and hypernatremic on presentation, this has improved but not resolved and could be potential source of altered mental status Due to conservative plan of care requested CVA/ACS were not investigated however there were no signs/symptoms of those on presentation Altered mental status suspected to be secondary to worsening of chronic dementia and/or dehydration/hypernatremia (3) Dehydration with hypernatremia Current Visit: Yes Status: Acute Assessment and Plan: Patient was receiving D5 at 100 mL/h per nephrology recommendations on admission Physical exam indicates patient is better hydrated, labs showed improvement in hypernatremia Improvement in labs and declining clinical status is indicative of poor prognosis Due to respiratory distress and signs consistent with poor airway protection as well as family goals fluids were discontinued (4) Atrial fibrillation with RVR Current Visit: Yes Status: Acute Assessment and Plan: Patient has known history of atrial fibrillation, he is not currently anticoagulated secondary to preference for less aggressive care He is rate controlled as needed with IV metoprolol, we will continue to monitor (5) Dementia Current Visit: No Status: Chronic DVT Prophylaxis: Subcutaneous heparin discontinued due to comfort care goals - Time Spent with Patient Total time spent is greater than 50% in coordination of care (as documented) at patient's floor/unit and/or counseling patient: Internal Medicine: Result - Labs CBC & Chem 7: 10/30/18 03:40 10/31/18 02:55 - ABG Interpretation ABG results: PT/INR, D-dimer PT 18.8 Seconds (9.4-12.1) H 10/30/18 03:40 Consult Discharge Plan - Plan Referrals: Darin Alicea Jr, MD [Primary Care Provider] - <Dillan Carson - Last Filed: 11/04/18 15:16> Hospitalist Progress Note - Encounter Date of Encounter: 11/04/18 - Exam Vitals: Temp Pulse Resp BP Pulse Ox 102.4 F H 94 35 94/62 77 11/04/18 14:57 11/04/18 14:57 11/04/18 14:57 11/04/18 07:41 11/04/18 14:57 - Time Spent with Patient Total time spent is greater than 50% in coordination of care (as documented) at patient's floor/unit and/or counseling patient: Internal Medicine: Result - Labs CBC & Chem 7: 10/30/18 03:40 10/31/18 02:55 - ABG Interpretation ABG results: PT/INR, D-dimer PT 18.8 Seconds (9.4-12.1) H 10/30/18 03:40 - Attending Attestation I examined this patient and my medical decision-making was reviewed with the Resident Physician on 11/04/18. I agree with the documented findings, disposition and treatment plan as described except to the extent set forth below. Mr Jaramillo is currently admitted and receiving comfort measures. He is acti vely dying. Family at bedside. Exam Dyspneic. Not tachycardic Plan Continue comfort measures <Marky Goodson - Last Filed: 11/04/18 13:32> (2) Altered mental status Qualifiers: Altered mental status type: somnolence Qualified Code(s): R40.0 - Somnolence (5) Dementia Qualifiers: Dementia type: unspecified type Dementia behavioral disturbance: with behavioral disturbance Qualified Code(s): F03.91 - Unspecified dementia with behavioral disturbance
[2018-11-04] MEDS: FentaNYL (PF) 1,000 MCG in 0.9 % Sodium Chloride 80 ML IVC SCH (09:35)
[2018-11-04 18:50] VITALS: BP 76/51
--- NOTE | 2018-11-04 20:53 | Death Note ---
Pronouncement Note - Date and Time of Date of : 11/04/18 Time of : 20:03 - PCOD Preliminary cause of : Dementia - Additional Data Confirmation of : no pulse, no respirations, no heart sounds, pupils fixed and dilated Family: at bedside Attending/PCP notified?: Yes Attending physician: Dillan Carson, DO Was code activated?: No Autopsy requested?: No computer forensic examiner notified?: No Organ bank notified?: No Advance directives: No
--- NOTE | 2018-11-04 20:59 | Death Note ---
Discharge Sum: Summary - Date and Time Date of admission: 10/29/18 19:09 Date of : 11/04/18 Time of : 20:03 - Summary Details: Patient was admitted due to altered mental status, dehydration and malnutrition. Patient arrived septic, somnolent and unable to provide patient history. Patient's mental status did not improve during admission. He was admitted where he was given IV fluids and antibiotics and was placed on palliative care. Patient on arrival had a poor prognosis due to declining health status. Patient was given antibiotics but was unable to find source of infection. Due to altered mental mental status, Declining health status, patient was placed on palliative care bed under hospitalist team with palliative care support. He was continued on medications for pain and anxiety, until time of . - Additional Data Confirmation of as documented by pronouncing clinician: no pulse, no respirations, no heart sounds, pupils fixed and dilated Family: at bedside Attending/PCP notified?: Yes Attending physician: Dillan Carson, DO Was code activated?: No Autopsy requested?: No psychological examiner notified?: No Organ bank notified?: No Advance directives: No Hospice patient?: No Discharge Sum: Diag - PCOD Probable Cause of : Cardiac arrest Discharge Sum: Prov - Provider Primary care physician: Darin Alicea Jr, MD Consults: 10/29/18 16:12 Consult to Nephrology [CONS] Stat Consulting Provider: [facility]/ABHILASH/SHAMEKA/OBDULIA Reason for Consult: hypernatremia Call Completed: Yes Consult to Palliative Care [CONS] Stat Comment: Consulting Provider: [facility] Reason for Consult: end of treatment goals Call Completed: No 10/29/18 18:57 Consult to Physician [CONS] Routine Consulting Provider: Han Hernández Reason for Consult: LV; hypernatremic dehydration Time Notified: 18:58 Call Completed: Yes Pronouncing clinician: Ayleen Do
== END 2018-11-04 20:02 | disposition expired | DRG 640 ==
LOC: EMEROOARM 13:34 → ICNU 19:09 → SUATTDRO 19:09 → ICNU 20:00 → 2ANU 10-30 13:10
PROVIDERS: ADMIT Pediatrics; ATTEND Internal Medicine